=== PATIENT | male | born 1940 | race Caucasian/White ===

== ENCOUNTER 2016-08-28 08:31 | Day surgery (SDC) | payer MEDICARE, BC ==
[2016-08-24 18:28] VITALS: BMI 35.4
[~2016-08-28 08:31] MED LIST: LACTATED RINGERS 1,000 ML IV SCH
[2016-08-28] MEDS: CYCLOPENTOLATE 1% OPHTH SOLN 2 ML BTL OP ONE ×3 (09:50→10:08)
[2016-08-28] MEDS: FLURBIPROFEN 0.03% OPHTH DROPS 2.5 ML BTL OP ONE ×3 (09:53→10:11)
[2016-08-28] MEDS: PHENYLEPHRINE 10% OPHTH DROPS 5 ML BTL OP ONE ×2 (09:56→10:05)
[2016-08-28 10:07] VITALS: RESP 18; TEMP 98.7
[2016-08-28 10:17] LABS: Glucose,Whole Blood 135 mg/dL (75-99)
[2016-08-28] MEDS ORDERED: PROPOFOL 10 MG/ML 20 ML VIAL IV ONE (10:33)
[2016-08-28] MEDS ORDERED: LACTATED RINGERS 1,000 ML IV ONE (10:37)
[2016-08-28] MEDS: TIMOLOL 0.5% OPHTH SOLN (PF) 0.2 ML DROPERETTE OP ONE ×2 (10:46→10:49)
[2016-08-28] MEDS: GENTAMICIN/PREDNISOL AC OPHTH OINT 3.5GM OPHTHALMIC ONE ×2 (10:46→10:49)
[2016-08-28] MEDS ORDERED: HYALURONATE SODIUM INTRAOCULAR 1 EACH SYRINGE (10MG/ML) INTRAOCULA ONE ×2 (10:47→10:49)
[2016-08-28] MEDS ORDERED: BALANCED SALT IRRIG SOLN COMB2 15 ML IRRIG.SOLN IRRIGATION ONE ×2 (10:47→10:49)
[2016-08-28] MEDS ORDERED: EPINEPHrine (PF) 0.5 ML in BALANCED SALT IRRIG SOLN COMB2 500 ML IRRIGATION ONE (10:50)
--- NOTE | 2016-08-28 11:03 | P.OP ---
Date of Procedure: 08/28/16 Preoperative Diagnosis: Postoperative Diagnosis: Procedure(s) Performed: PREOPERATIVE DIAGNOSIS: Cataract, right eye. POSTOPERATIVE DIAGNOSIS: Cataract, right eye. OPERATION: Phacoemulsification cataract, right eye. DESCRIPTION OF PROCEDURE: The patient was taken to the preoperative holding area. Intravenous Propofol was given so as to bring about adequate sedation. The following mixture was given for local anesthesia: 5 mL of 2% lidocaine, 5 mL of 0.75% Marcaine, and 1 mL of Wydase. Approximately 4 mL was injected in the retrobulbar space of the surgical eye. Additional 1 mL was then directed to the temporal area of the surgical eye. This was performed to allow adequate neurological block of the facial muscles. The patient was revived and then taken into the operative room. The patient was prepped and draped in the usual sterile manner for the operative eye. A lid speculum was put into position. The conjunctiva was resected back from the limbus in the 12 o'clock position. Bleeding was controlled with electrocautery. A #69 blade was then used and a half-thickness scleral incision approximately 1-mm posterior to the limbus was made on bare sclera. This was shelved in the clear cornea using a crescent knife. Next a 15-degree blade was used to make a stab incision at the 3 o' clock position at the corneolimbal interface. Keratome blade was then used and the superior wound was extended into the anterior chamber. Viscoelastic was injected into the anterior chamber and to maintain its form. Next, a cystotome was used and a continuous anterior capsulotomy was made without difficulty. Hydrodissection using a blunt cannula and BSS was performed. Phaco probe was then employed and a groove extending from 12 to 6 o'clock in the lens was created. A Marvin wand was used through the stab incision so as to perform a divide and conquer technique. Next an irrigation aspiration probe was utilized and any residual cortex was removed from the eye. Again, viscoelastic was injected into the anterior chamber. An Jovanny posterior chamber lens implant was placed in the cartridge and injected into the anterior chamber without difficulty. The [employer] hook was utilized to spin the lens into position and this was again performed without any difficulty. The irrigation and aspiration probe was again employed and any residual viscoelastic was removed from the eye. Then BSS was injected into the limbal stab incision and the anterior chamber re-inflated. The conjunctiva was reapproximated using electrocautery. One drop of 0.25% Timoptic was placed over the corneal along with TobraDex ophthalmic ointment. Two sterile patches and a Bruno eye shield were taped into position. The patient was transported to the recovery room in stable condition. Implants: Pathology: none sent Condition: stable Disposition: same day Indications for Procedure: Operative Findings: Description of Procedure:
[2016-08-28 11:24] VITALS: BP 157/84; PULSE 80
[2016-08-28] MEDS ORDERED: BUPIVACAINE (PF) 0.75% 5 ML, LIDOCAINE 4% (PF) 5 ML, HYALURONIDASE, HUMAN RECOMB 150 UNIT MISCELLANE ONE ×3 (23:00)
== END 2016-08-28 11:39 | disposition home or self-care (01) ==
LOC: OR 08:31
PROVIDERS: ATTEND Ophthalmology
DX: H25.11 Age-related nuclear cataract, right eye (principal); G70.00 Myasthenia gravis without (acute) exacerbation; E11.9 Type 2 diabetes mellitus without complications; I10 Essential (primary) hypertension; E78.5 Hyperlipidemia, unspecified; I48.91 Unspecified atrial fibrillation; Z95.5 Presence of coronary angioplasty implant and graft; N42.9 Disorder of prostate, unspecified; Z79.01 Long term (current) use of anticoagulants; Z79.84 Long term (current) use of oral hypoglycemic drugs; Z79.82 Long term (current) use of aspirin; Z79.899 Other long term (current) drug therapy; Z88.7 Allergy status to serum and vaccine; Z86.74 Personal history of sudden cardiac arrest; Z86.73 Personal history of transient ischemic attack (TIA), and cerebral infarction without residual deficits; Z87.891 Personal history of nicotine dependence
CPT/HCPCS: 66982; V2632; J2001; J3470; J0171; J2704

== ENCOUNTER 2016-11-13 09:24 | Day surgery (SDC) | payer MEDICARE, BC ==
[2016-11-06 15:09] VITALS: BMI 35.4
[2016-11-13] MEDS: PHENYLEPHRINE 10% OPHTH DROPS 5 ML BTL OP ONE ×5 (10:17→10:43)
[2016-11-13] MEDS: CYCLOPENTOLATE 1% OPHTH SOLN 2 ML BTL OP ONE ×5 (10:20→10:45)
[2016-11-13] MEDS: FLURBIPROFEN 0.03% OPHTH DROPS 2.5 ML BTL OP ONE ×5 (10:23→10:47)
[2016-11-13 10:25] VITALS: RESP 20; TEMP 98
[2016-11-13 10:46] LABS: Glucose,Whole Blood 158 mg/dL (75-99)
[2016-11-13] MEDS ORDERED: PROPOFOL 10 MG/ML 20 ML VIAL IV ONE (10:50)
[2016-11-13] MEDS ORDERED: fentaNYL (PF) 50 MCG/ML 2 ML AMP ONE (10:50)
[2016-11-13] MEDS ORDERED: MIDAZOLAM 2 MG/2 ML VIAL ONE (10:50)
[2016-11-13] MEDS ORDERED: EPINEPHrine (PF) 0.5 ML in BALANCED SALT IRRIG SOLN COMB2 500 ML IRRIGATION ONE (10:51)
[2016-11-13] MEDS ORDERED: BALANCED SALT IRRIG SOLN COMB2 15 ML IRRIG.SOLN INTRAOCULA ONE (10:54)
[2016-11-13] MEDS ORDERED: HYALURONATE SODIUM INTRAOCULAR 1 EACH SYRINGE (10MG/ML) INTRAOCULA ONE (10:54)
[2016-11-13] MEDS ORDERED: TIMOLOL 0.5% OPHTH SOLN (PF) 0.2 ML DROPERETTE LEFT EYE ONE (10:55)
[2016-11-13 11:11] LABS: INR 2.6 (<1.2); Prothrombin Time 24.8 sec (9.0-12.0)
--- NOTE | 2016-11-13 11:16 | P.OP ---
Date of Procedure: 11/13/16 Preoperative Diagnosis: Postoperative Diagnosis: Procedure(s) Performed: PREOPERATIVE DIAGNOSIS: Cataract, left eye. Miosis, left eye POSTOPERATIVE DIAGNOSIS: Cataract, left eye. OPERATION: Phacoemulsification cataract, left eye. DESCRIPTION OF PROCEDURE: The patient was taken to the preoperative holding area. Intravenous Propofol was given so as to bring about adequate sedation. The following mixture was given for local anesthesia: 5 mL of 2% lidocaine, 5 mL of 0.75% Marcaine, and 1 mL of Wydase. Approximately 4 mL was injected in the retrobulbar space of the surgical eye. Additional 1 mL was then directed to the temporal area of the surgical eye. This was performed to allow adequate neurological block of the facial muscles. The patient was revived and then taken into the operative room. The patient was prepped and draped in the usual sterile manner for the operative eye. A lid speculum was put into position. The conjunctiva was resected back from the limbus in the 12 o'clock position. Bleeding was controlled with electrocautery. A #69 blade was then used and a half-thickness scleral incision approximately 1-mm posterior to the limbus was made on bare sclera. This was shelved in the clear cornea using a crescent knife. Next a 15-degree blade was used to make a stab incision at the 3 o' clock position at the corneolimbal interface. Keratome blade was then used and the superior wound was extended into the anterior chamber. Viscoelastic was injected into the anterior chamber and to maintain its form. A [place]gin ring was injected into the chamber and the pupil was stretched into position. Next, a cystotome was used and a continuous anterior capsulotomy was made without difficulty. Hydrodissection using a blunt cannula and BSS was performed. Phaco probe was then employed and a groove extending from 12 to 6 o' clock in the lens was created. A Marvin wand was used through the stab incision so as to perform a divide and conquer technique. Next an irrigation aspiration probe was utilized and any residual cortex was removed from the eye. Again, viscoelastic was injected into the anterior chamber. An Jovanny posterior chamber lens implant was placed in the cartridge and injected into the anterior chamber without difficulty. The [employer] hook was utilized to spin the lens into position and this was again performed without any difficulty. The Maluygin ring was remioved from [facility] eye. The irrigation and aspiration probe was again employed and any residual viscoelastic was removed from the eye. Then BSS was injected into the limbal stab incision and the anterior chamber re-inflated. The conjunctiva was reapproximated using electrocautery. One drop of 0.25% Timoptic was placed over the corneal along with TobraDex ophthalmic ointment. Two sterile patches and a Bruno eye shield were taped into position. The patient was transported to the recovery room in stable condition. Implants: Pathology: none sent Condition: stable Disposition: same day Indications for Procedure: Operative Findings: Description of Procedure:
[2016-11-13 11:32] VITALS: BP 161/77
[2016-11-13 11:44] VITALS: PULSE 63
[2016-11-13] MEDS ORDERED: GENTAMICIN/PREDNISOL AC OPHTH OINT 3.5GM OPHTHALMIC ONE (23:00)
[2016-11-13] MEDS ORDERED: TIMOLOL 0.5% OPHTH SOLN (PF) 0.2 ML DROPERETTE OP ONE (23:00)
[2016-11-13] MEDS ORDERED: BUPIVACAINE (PF) 0.75% 5 ML, LIDOCAINE 4% (PF) 5 ML, HYALURONIDASE, HUMAN RECOMB 150 UNIT MISCELLANE ONE ×3 (23:00)
== END 2016-11-13 12:01 | disposition home or self-care (01) ==
LOC: OR 09:24
PROVIDERS: ATTEND Ophthalmology
DX: H26.9 Unspecified cataract (principal); H57.03 Miosis; E11.9 Type 2 diabetes mellitus without complications; Z79.84 Long term (current) use of oral hypoglycemic drugs; E78.5 Hyperlipidemia, unspecified; I25.10 Atherosclerotic heart disease of native coronary artery without angina pectoris; I10 Essential (primary) hypertension; Z87.891 Personal history of nicotine dependence; I48.91 Unspecified atrial fibrillation; Z86.73 Personal history of transient ischemic attack (TIA), and cerebral infarction without residual deficits; Z95.5 Presence of coronary angioplasty implant and graft; G70.00 Myasthenia gravis without (acute) exacerbation; Z79.01 Long term (current) use of anticoagulants; Z79.82 Long term (current) use of aspirin; Z79.891 Long term (current) use of opiate analgesic; Z79.899 Other long term (current) drug therapy; Z88.7 Allergy status to serum and vaccine
CPT/HCPCS: 66984; 85610; V2632; J2001; J2250; J3470; J0171; J3010; J2704

== ENCOUNTER 2018-08-16 20:46 | Inpatient (IN) | payer BC, MEDICARE ==
[2018-08-16] MEDS ORDERED: MORPHINE SULFATE 2 MG/ML SYRINGE IVP STA (21:23)
[2018-08-16] MEDS ORDERED: SODIUM CHLORIDE 0.9% 1,000 ML IV STA (21:23)
--- NOTE | 2018-08-16 21:56 | ED ---
Abdominal Pain HPI - General Source: patient, RN notes reviewed, old records reviewed Mode of arrival: ambulatory Limitations: no limitations <Geovanna Amaya - Last Filed: 08/17/18 00:26> <Adelaida Vidal - Last Filed: 08/20/18 04:29> - General Chief Complaint: Abdominal Pain Stated Complaint: Hematuria Time Seen by Provider: 08/16/18 21:06 - History of Present Illness Initial Comments: 77-year-old male presents today for evaluation for abdominal pain, and hematuria. Patient reports that after he urinated he noted some blood within his urine today and had some pain over his Right flank area intermittently. Patient reports pain is 2/10. Patient states he has no chest pain shortness breath nausea or vomiting. Patient reports that he is on Coumadin. (Geovanna Amaya) - Related Data Home Medications Medication Instructions Recorded Confirmed Atorvastatin [Lipitor] 80 mg PO QAM 12/21/15 08/16/18 amLODIPine [Norvasc] 10 mg PO QAM 12/21/15 08/16/18 Warfarin Sodium [Coumadin] 5 mg PO DAILY 02/01/16 08/16/18 Primidone [Mysoline] 25 mg PO AC-SUPPER 08/16/18 08/16/18 Primidone [Mysoline] 50 mg PO DAILY@1100 08/16/18 08/16/18 Primidone [Mysoline] 250 mg PO HS 08/16/18 08/16/18 Pyridostigmine [place] [Mestinon] 60 mg PO Q4H 08/16/18 08/16/18 metFORMIN HCL ER [Glucophage Xr] 500 mg PO BID 08/16/18 08/16/18 Loperamide [Imodium] 2 mg PO QID PRN 08/17/18 08/17/18 Previous Rx's Medication Instructions Recorded Lisinopril [Zestril] 10 mg PO DAILY #30 tab 12/25/15 Metoprolol Tartrate [Lopressor] 50 mg PO BID #60 tab 12/25/15 hydrALAZINE HCL [Apresoline] 25 mg PO BID #60 tab 08/18/18 Allergies Allergy/AdvReac Type Severity Reaction Status Date / Time mayonnaise AdvReac Vomiting Verified 08/16/18 21:36 SOUR CREAM AdvReac Vomiting Uncoded 08/16/18 21:36 Review of Systems ROS Other: All systems not noted in ROS Statement are negative. <Geovanna Amaya - Last Filed: 08/17/18 00:26> ROS Other: All systems not noted in ROS Statement are negative. <Adelaida Vidal - Last Filed: 08/20/18 04:29> ROS Statement: Those systems with pertinent positive or pertinent negative responses have been documented in the HPI. Past Medical History Past Medical History: Atrial Fibrillation, CVA/TIA, Diabetes Mellitus, Eye Disorder, Hearing Disorder / Deafness, Hyperlipidemia, Hypertension, Memory Impairment, Musculoskeletal Disorder, Neurologic Disorder, Prostate Disorder Additional Past Medical History / Comment(s): CARDIAC ARREST IN 2008, STATES HE DID NOT HAVE OR, WAS DUE TO A DIABETIC MED HE WAS TAKING AT THE TIME. MYASTHENIA GRAVIS. tremors, HX Iron deficiency Anemia. New Onset A-Fib 12/2015. Hiatal Hernia. POSS TIA YEARS AGO. BPH. Last Myocardial Infarction Date:: 2008 History of Any Multi-Drug Resistant Organisms: None Reported Past Surgical History: Appendectomy, Cholecystectomy, Heart Catheterization With Stent Additional Past Surgical History / Comment(s): HEMORROIDECTOMY. EGD/Colonoscopy. STENTS X2. RIA, CARDIOVERSION, cataract surg. August 2016 Past Anesthesia/Blood Transfusion Reactions: No Reported Reaction Date of Last Stent Placement:: 2008 Past Psychological History: No Psychological Hx Reported Smoking Status: Former smoker - Past Family History Father Family Medical History: Cancer Additional Family Medical History / Comment(s): bone cancer. Mother Additional Family Medical History / Comment(s): when pt was born. Daughter(s) Family Medical History: Cancer <Geovanna Amaya - Last Filed: 08/17/18 00:26> General Exam Limitations: no limitations General appearance: alert, in no apparent distress Head exam: Present: atraumatic, normocephalic, normal inspection Eye exam: Present: normal appearance, PERRL, EOMI. Absent: scleral icterus, conjunctival injection, periorbital swelling ENT exam: Present: normal exam, mucous membranes moist Neck exam: Present: normal inspection. Absent: tenderness, meningismus, lymphadenopathy Respiratory exam: Present: normal lung sounds bilaterally. Absent: respiratory distress, wheezes, rales, rhonchi, stridor Cardiovascular Exam: Present: regular rate, normal rhythm, normal heart sounds. Absent: systolic murmur, diastolic murmur, rubs, gallop, clicks GI/Abdominal exam: Present: soft, normal bowel sounds. Absent: distended, tenderness, guarding, rebound, rigid Neurological exam: Present: alert, oriented X3, CN II-XII intact Psychiatric exam: Present: normal affect, normal mood Skin exam: Present: warm <Geovanna Amaya - Last Filed: 08/17/18 00:26> - General Exam Comments Initial Comments: Pleasant 77-year-old male. Alert and oriented. No distress. (Geovanna Amaya) Course Vital Signs 08/16/18 08/16/18 08/17/18 20:54 22:43 00:58 Temperature 97.9 F 98.6 F 98.3 F Pulse Rate 85 74 92 Respiratory 20 16 16 Rate Blood Pressure 172/80 151/83 167/82 O2 Sat by Pulse 95 95 95 Oximetry Medical Decision Making - Lab Data Result diagrams: 08/16/18 21:41 08/16/18 21:41 - Radiology Data Radiology results: report reviewed <Geovanna Amaya - Last Filed: 08/17/18 00:26> - Lab Data Result diagrams: 08/17/18 06:34 08/18/18 07:29 <Adelaida Vidal - Last Filed: 08/20/18 04:29> - Medical Decision Making 37-year-old male persist return today for evaluation for intermittent right flank pain, and hematuria after urinating today. Patient has evidence of a right-sided retained renal stone. Discussed the patient's pain is likely related to passing a kidney stone. KUB was reviewed and shows no acute process but evidence of retained right kidney stone. Patient labwork was reviewed. i te blood cell count hemoglobin are within normal limits. Patient's kidney function was all. As noted the patient's pancreatic enzymes are elevated with lipase of 1300. Patient has had his gallbladder removed. He denies alcohol use. Patient isn't had a history of pancreatitis before. Computed tomography scan of the abdomen and pelvis was completed with contrast. This shows a colonic diverticulosis, but continued to retained stone, no evidence of obstructing stone or hydronephrosis. No acute findings associated with the pancreas. Patient was given 2 L bolus and started on maintenance fluids. I discussed admitting the Patient for acute pancreatitis and hematuria rated at 2 recently passed kidney stone. He is resting comfortably bed at this time. I discussed case with Dr. Vidal who discussed the case with the admitting physician. (Geovanna Amaya) I was available for consultation in the emergency department. The history and physical exam were done by the midlevel provider. I was consulted for this patient's care. I reviewed the case with the midlevel provider and based on their presentation of the patient, I agree with the assessment, medical decision making and plan of care as documented. Chart was dictated using [employer] dictation software. Attempts were made to correct any dictation errors however some typographical errors may persist. (Adelaida Vidal) - Lab Data Lab Results 08/16/18 08/16/18 08/16/18 Range/Units 21:41 21:41 21:49 WBC 7.4 (3.8-10.6) k/uL RBC 4.33 (4.30-5.90) m/uL Hgb 12.8 L (13.0-17.5) gm/dL Hct 38.5 L (39.0-53.0) % MCV 89.1 (80.0-100.0) fL MCH 29.6 (25.0-35.0) pg MCHC 33.3 (31.0-37.0) g/dL RDW 14.2 (11.5-15.5) % Plt Count 325 (150-450) k/uL Neutrophils % 74 % Lymphocytes % 13 % Monocytes % 6 % Eosinophils % 3 % Basophils % 0 % Neutrophils # 5.5 (1.3-7.7) k/uL Lymphocytes # 1.0 (1.0-4.8) k/uL Monocytes # 0.4 (0-1.0) k/uL Eosinophils # 0.2 (0-0.7) k/uL Basophils # 0.0 (0-0.2) k/uL Sodium 142 (137-145) mmol/L Potassium 4.0 (3.5-5.1) mmol/L Chloride 110 H (98-107) mmol/L Carbon Dioxide 24 (22-30) mmol/L Anion Gap 8 mmol/L BUN 23 H (9-20) mg/dL Creatinine 1.05 (0.66-1.25) mg/dL Est GFR (CKD-EPI)AfAm 80 (>60 ml/min/1.73 sqM) Est GFR (CKD-EPI)NonAf 69 (>60 ml/min/1.73 sqM) Glucose 157 H (74-99) mg/dL Calcium 9.2 (8.4-10.2) mg/dL Total Bilirubin 0.9 (0.2-1.3) mg/dL AST 23 (17-59) U/L ALT 28 (21-72) U/L Alkaline Phosphatase 185 H (38-126) U/L Total Protein 6.9 (6.3-8.2) g/dL Albumin 4.1 (3.5-5.0) g/dL Amylase 262 H (30-110) U/L Lipase 1780 H (23-300) U/L Urine Color Dark Red Urine Appearance Bloody (Clear) Urine RBC >182 H (0-5) /hpf Urine WBC 123 H (0-5) /hpf Urine Mucus Moderate H (None) /hpf - Radiology Data Cardiomegaly and CT. 14 mm nonobstructive stone in the right kidney. Colonic diverticulosis. Mild hiatal hernia. (Geovanna Amaya) Disposition Is patient prescribed a controlled substance at d/c from ED?: No Time of Disposition: 00:30 <Geovanna Amaya - Last Filed: 08/17/18 00:26> <Adelaida Vidal - Last Filed: 08/20/18 04:29> Clinical Impression: Pancreatitis, Hematuria, Myasthenia gravis, Hypertension Disposition: ADMITTED IP TO THIS HOSP Condition: Stable
[2018-08-16 21:57] LABS: Basophils % (A) 0 %; Eosinophils # (A) 0.2 k/uL (0-0.7); Eosinophils % (A) 3 %; HCT 38.5 % (39.0-53.0); HGB 12.8 gm/dL (13.0-17.5); Lymphocytes % (A) 13 %; MCH 29.6 pg (25.0-35.0); MCHC 33.3 g/dL (31.0-37.0); MCV 89.1 fL (80.0-100.0); Mean Platelet Volume 7.4; Monocytes # (A) 0.4 k/uL (0-1.0); Monocytes % (A) 6 %; Neutrophils # (A) 5.5 k/uL (1.3-7.7); Neutrophils % (A) 74 %; Platelet Count 325 k/uL (150-450); RBC 4.33 m/uL (4.30-5.90); RDW 14.2 % (11.5-15.5); WBC 7.4 k/uL (3.8-10.6)
[2018-08-16 22:09] LABS: Mucus,Urine Moderate /hpf; RBC,Urine >182 /hpf (0-5); WBC,Urine 123 /hpf (0-5)
[2018-08-16 22:10] LABS: Appearance,Urine Bloody (Clear); Color,Urine Dark Red
[2018-08-16 22:17] LABS: Albumin 4.1 g/dL (3.5-5.0); Calcium 9.2 mg/dL (8.4-10.2); Total Bilirubin 0.9 mg/dL (0.2-1.3); Total Protein 6.9 g/dL (6.3-8.2)
--- NOTE | 2018-08-16 22:20 | XR ---
EXAM: XR Abdomen, 1 View CLINICAL HISTORY: ITS.REASON XR Reason: abdominal pain TECHNIQUE: Frontal supine view of the abdomen/pelvis. COMPARISON: No relevant prior studies available. FINDINGS: Gastrointestinal tract: Unremarkable. No dilation. Bones/joints: No acute fracture. No dislocation. Other: 1.8 cm calcification in the right upper quadrant. IMPRESSION: No bowel obstruction. 1.8 cm calcification in the right upper quadrant, possibly a kidney stone.
--- NOTE | 2018-08-16 23:36 | CT ---
EXAM: CT Abdomen and Pelvis With Intravenous Contrast CLINICAL HISTORY: ITS.REASON CT Reason: pain, TECHNIQUE: Axial computed tomography images of the abdomen and pelvis with intravenous contrast. CTDI is 40 mGy and DLP is 1653 mGy-cm. This CT exam was performed using one or more of the following dose reduction techniques: automated exposure control, adjustment of the mA and/or kV according to patient size, and/or use of iterative reconstruction technique. COMPARISON: No relevant prior studies available. FINDINGS: Lung bases: Cardiomegaly. ABDOMEN: Liver: Unremarkable. Gallbladder and bile ducts: Removed. Pancreas: Unremarkable. Spleen: Unremarkable. Adrenals: Unremarkable. Kidneys and ureters: No hydronephrosis. 14 mm nonobstructive stone in the right kidney. Atrophic kidneys bilaterally. Stomach and bowel: No bowel obstruction or bowel wall thickening. Mild hiatal hernia. Colonic diverticulosis. PELVIS: Appendix: No evidence of appendicitis. Bladder: Unremarkable. Reproductive: Unremarkable. ABDOMEN and PELVIS: Intraperitoneal space: Unremarkable. Bones/joints: No acute fractures. Soft tissues: Fat containing right inguinal hernia. Vasculature: No abdominal aortic aneurysm. Lymph nodes: No enlarged lymph nodes. IMPRESSION: 1. Cardiomegaly. 2. 14 mm nonobstructive stone in the right kidney. 3. Colonic diverticulosis. Mild hiatal hernia.
[2018-08-17] MEDS ORDERED: MORPHINE SULFATE 4 MG/ML SYRINGE IV PRN (00:30)
[2018-08-17] MEDS ORDERED: ACETAMINOPHEN TAB 325 MG TAB PO PRN (00:30)
[2018-08-17] MEDS ORDERED: ONDANSETRON 4 MG/2 ML VIAL IVP PRN (00:30)
[2018-08-17] MEDS ORDERED: IBUPROFEN 400 MG TAB PO PRN (00:30)
[2018-08-17] MEDS ORDERED: NALOXONE 0.4 MG/ML 1 ML VIAL IV PRN (00:30)
[2018-08-17] MEDS ORDERED: SODIUM CHLORIDE 0.9% 1,000 ML IV SCH (00:30)
[2018-08-17 01:44] VITALS: BMI 36.7
[2018-08-17] MEDS: PYRIDOSTIGMINE 60 MG TAB PO SCH ×6 (02:29→21:46)
[2018-08-17] MEDS ORDERED: KETOROLAC 30 MG/ML 1 ML VIAL IVP PRN (06:00)
[2018-08-17 07:08] LABS: Glucose,Whole Blood 141 mg/dL (75-99)
[2018-08-17 07:14] LABS: Basophils % (A) 0 %; Eosinophils # (A) 0.2 k/uL (0-0.7); Eosinophils % (A) 2 %; HCT 39.7 % (39.0-53.0); HGB 12.8 gm/dL (13.0-17.5); Lymphocytes % (A) 12 %; MCH 28.9 pg (25.0-35.0); MCHC 32.2 g/dL (31.0-37.0); MCV 89.8 fL (80.0-100.0); Mean Platelet Volume 7.2; Monocytes # (A) 0.6 k/uL (0-1.0); Monocytes % (A) 7 %; Neutrophils # (A) 6.3 k/uL (1.3-7.7); Neutrophils % (A) 75 %; Platelet Count 303 k/uL (150-450); RBC 4.42 m/uL (4.30-5.90); RDW 14.2 % (11.5-15.5); WBC 8.4 k/uL (3.8-10.6)
[2018-08-17 07:29] LABS: Amylase 117 U/L (30-110); Anion Gap 7 mmol/L; Blood Urea Nitrogen 17 mg/dL (9-20); Carbon Dioxide 25 mmol/L (22-30); Chloride 109 mmol/L (98-107); Glucose 133 mg/dL (74-99); Lipase 392 U/L (23-300); Potassium 3.8 mmol/L (3.5-5.1); Sodium 141 mmol/L (137-145)
[2018-08-17 07:43] LABS: INR 2.2 (<1.2); Prothrombin Time 21.6 sec (9.0-12.0)
[2018-08-17] MEDS: METOPROLOL TARTRATE 50 MG TAB PO SCH ×2 (09:21→21:46)
[2018-08-17] MEDS: metFORMIN 500 MG TAB PO SCH ×2 (09:21→21:46)
[2018-08-17] MEDS: amLODIPine 10 MG TAB PO SCH (09:21)
[2018-08-17] MEDS: LISINOPRIL 10 MG TAB PO SCH (09:21)
[2018-08-17] MEDS: PANTOPRAZOLE 40 MG/10 ML VIAL IV SCH (09:21)
[2018-08-17] MEDS: ATORVASTATIN 80 MG TAB PO SCH (09:21)
[2018-08-17] MEDS: PRIMIDONE 50 MG TAB PO SCH (11:33)
[2018-08-17 11:41] LABS: Glucose,Whole Blood 128 mg/dL (75-99)
--- NOTE | 2018-08-17 13:03 | P.HPIM ---
History of Present Illness This is a pleasant 77 years old male with past medical history of atrial fibrillation, diabetes mellitus, hearing disorder, hypertension, hyperlipidemia, myasthenia gravis, tremor who presents because of abdominal pain And hematurian. Patient yesterday had 2 episodes of urinating bloody urine associated with right sided flank pain, severe radiating to the front and down. Associated with some nausea but no vomiting On admission vitals looks stable. CBC and BMP were unremarkable. Sugar controlled. INR is 2.2 while on Coumadin. Lipase is elevated at 1718, amylase is elevated. Liver enzymes within normal limits. Urinalysis is suspicious for infections with elevated WBC at 123 and RBCs More than 182. CT of the abdome n/pelvis: Cardiomegaly, 14 mm nonobstructing stone and right kidney and diverticulosis. Pancreas was unremarkable Creatinine within normal limits. Lipase is coming down from 1780 down to 392. Patient denies epigastric pain. Review of Systems CONSTITUTIONAL: No fever, no malaise, no fatigue. HEENT: No recent visual problems or hearing problems. Denied any sore throat. CARDIOVASCULAR: No orthopnea, PND, no palpitations, no syncope. PULMONARY: No shortness of breath, no cough, no hemoptysis. GASTROINTESTINAL: No diarrhea, no nausea, no vomiting, no abdominal pain. Normoactive bowel sounds. NEUROLOGICAL: No headaches, no weakness, no numbness. HEMATOLOGICAL: Denies any bleeding or petechiae. GENITOURINARY: Denies any burning micturition, frequency, or urgency. MUSCULOSKELETAL/RHEUMATOLOGICAL: Denies any joint pain, swelling, or any muscle pain. ENDOCRINE: Denies any polyuria or polydipsia. Past Medical History Past Medical History: Atrial Fibrillation, CVA/TIA, Diabetes Mellitus, Eye Disorder, Hearing Disorder / Deafness, Hyperlipidemia, Hypertension, Memory Impairment, Musculoskeletal Disorder, Neurologic Disorder, Prostate Disorder Additional Past Medical History / Comment(s): CARDIAC ARREST IN 2008, MYASTHENIA GRAVIS. tremors, HX Iron deficiency Anemia. New Onset A-Fib 12/2015. Hiatal Hernia. POSS TIA YEARS AGO. BPH. Last Myocardial Infarction Date:: 2008 History of Any Multi-Drug Resistant Organisms: None Reported Past Surgical History: Appendectomy, Cholecystectomy, Heart Catheterization With Stent Additional Past Surgical History / Comment(s): HEMORROIDECTOMY. EGD/Colonoscopy. STENTS X2. RIA, CARDIOVERSION, cataract surg. August 2016 Past Anesthesia/Blood Transfusion Reactions: No Reported Reaction Date of Last Stent Placement:: 2008 Past Psychological History: No Psychological Hx Reported Smoking Status: Former smoker Past Alcohol Use History: Rare Additional Past Alcohol Use History / Comment(s): QUIT 20 YRS AGO (1993), SMOKED FOR 20 YRS, 1PPD. Past Drug Use History: None Reported - Past Family History Father Family Medical History: Cancer Additional Family Medical History / Comment(s): bone cancer. Mother Additional Family Medical History / Comment(s): when pt was born. Daughter(s) Family Medical History: Cancer Medications and Allergies Home Medications Medication Instructions Recorded Confirmed Type Atorvastatin [Lipitor] 80 mg PO QAM 12/21/15 08/16/18 History amLODIPine [Norvasc] 10 mg PO QAM 12/21/15 08/16/18 History Lisinopril [Zestril] 10 mg PO DAILY #30 tab 12/25/15 08/16/18 Rx Metoprolol Tartrate [Lopressor] 50 mg PO BID #60 tab 12/25/15 08/16/18 Rx Warfarin Sodium [Coumadin] 5 mg PO DAILY 02/01/16 08/16/18 History Primidone [Mysoline] 25 mg PO AC-SUPPER 08/16/18 08/16/18 History Primidone [Mysoline] 50 mg PO DAILY@1100 08/16/18 08/16/18 History Primidone [Mysoline] 250 mg PO HS 08/16/18 08/16/18 History Pyridostigmine [place] [Mestinon] 60 mg PO Q4H 08/16/18 08/16/18 History metFORMIN HCL ER [Glucophage Xr] 500 mg PO BID 08/16/18 08/16/18 History Allergies Allergy/AdvReac Type Severity Reaction Status Date / Time mayonnaise AdvReac Vomiting Verified 08/16/18 21:36 SOUR CREAM AdvReac Vomiting Uncoded 08/16/18 21:36 Physical Exam Vitals: Vital Signs Temp Pulse Pulse Resp BP BP Pulse Ox 08/17/18 05:25 98.6 F 78 18 156/72 97 08/17/18 01:41 98.8 F 117 H 18 176/82 100 08/17/18 00:58 98.3 F 92 16 167/82 95 08/16/18 22:43 98.6 F 74 16 151/83 95 08/16/18 20:54 97.9 F 85 20 172/80 95 Intake and Output 08/16/18 08/17/18 08/17/18 22:59 06:59 14:59 Intake Total 295 Balance 295 Intake: Oral 295 Other: Voiding Method Toilet Toilet # Voids 1 Weight 104.326 kg 109.5 kg GENERAL: The patient is alert and oriented x3, not in any acute distress. Well developed, well nourished. HEENT: Pupils are round and equally reacting to light. EOMI. No scleral icterus. No conjunctival pallor. Normocephalic, atraumatic. No pharyngeal erythema. No thyromegaly. CARDIOVASCULAR: S1 and S2 present. No murmurs, rubs, or gallops. PULMONARY: Chest is clear to auscultation, no wheezing or crackles. ABDOMEN: Soft, nontender, nondistended, normoactive bowel sounds. No palpable organomegaly. MUSCULOSKELETAL: No joint swelling or deformity. EXTREMITIES: No cyanosis, clubbing, or pedal edema. NEUROLOGICAL: Gross neurological examination did not reveal any focal deficits. SKIN: No rashes. Results CBC & Chem 7: 08/17/18 06:34 08/17/18 06:34 Labs: Abnormal Lab Results - Last 24 Hours (Table) 08/16/18 08/16/18 08/16/18 Range/Units 21:41 21:41 21:49 Hgb 12.8 L (13.0-17.5) gm/dL Hct 38.5 L (39.0-53.0) % PT (9.0-12.0) sec INR (<1.2) Chloride 110 H (98-107) mmol/L BUN 23 H (9-20) mg/dL Glucose 157 H (74-99) mg/dL POC Glucose (mg/dL) (75-99) mg/dL Alkaline Phosphatase 185 H (38-126) U/L Amylase 262 H (30-110) U/L Lipase 1780 H (23-300) U/L Urine RBC >182 H (0-5) /hpf Urine WBC 123 H (0-5) /hpf Urine Mucus Moderate H (None) /hpf 08/17/18 08/17/18 08/17/18 Range/Units 06:34 06:34 06:34 Hgb 12.8 L (13.0-17.5) gm/dL Hct (39.0-53.0) % PT 21.6 H (9.0-12.0) sec INR 2.2 H (<1.2) Chloride 109 H (98-107) mmol/L BUN (9-20) mg/dL Glucose 133 H (74-99) mg/dL POC Glucose (mg/dL) (75-99) mg/dL Alkaline Phosphatase (38-126) U/L Amylase 117 H (30-110) U/L Lipase 392 H (23-300) U/L Urine RBC (0-5) /hpf Urine WBC (0-5) /hpf Urine Mucus (None) /hpf 08/17/18 08/17/18 Range/Units 07:06 11:39 Hgb (13.0-17.5) gm/dL Hct (39.0-53.0) % PT (9.0-12.0) sec INR (<1.2) Chloride (98-107) mmol/L BUN (9-20) mg/dL Glucose (74-99) mg/dL POC Glucose (mg/dL) 141 H 128 H (75-99) mg/dL Alkaline Phosphatase (38-126) U/L Amylase (30-110) U/L Lipase (23-300) U/L Urine RBC (0-5) /hpf Urine WBC (0-5) /hpf Urine Mucus (None) /hpf Thrombosis Risk Factor Assmnt - Choose All That Apply Each Factor Represents 1 point: Obesity (BMI >25) Each Risk Factor Represents 2 Points: Age 61-74 years Thrombosis Risk Factor Assessment Total Risk Factor Score: 3 Thrombosis Risk Factor Assessment Level: Moderate Risk Assessment and Plan Assessment: Right Renal colic Right nonobstructing kidney stones with hematuria Elevated lipase. Low suspicion for Acute Pancreatitis. History of atrial fibrillation on Coumadin Diabetes mellitus Essential hypertension Hyperlipidemia History of Myasthenia gravis Tremor Hearing difficulty Plan: This is a pleasant 77 years old male who presents with hematuria and right kidney stone. Continue with IV fluids. Pain medicine. Repeat urine analysis. Call urology consult Labs and medication were reviewed.. Continue same treatment. Continue with symptomatic treatment. Resume home medication. Monitor lytes and vitals. DVT and GI prophylaxis. Further recommendations of the clinical course of the patient DVT prophylaxis: On Coumadin GI Prophylaxis: Pepcid
[2018-08-17] MEDS ORDERED: LOPERAMIDE 2 MG CAP PO STA (14:15)
[2018-08-17] MEDS ORDERED: LOPERAMIDE 2 MG CAP PO PRN (17:03)
[2018-08-17 17:07] LABS: Glucose,Whole Blood 185 mg/dL (75-99)
[2018-08-17] MEDS ORDERED: PRIMIDONE 50 MG TAB PO SCH (17:30)
[2018-08-17] MEDS ORDERED: WARFARIN 5 MG TAB PO SCH (18:00)
[2018-08-17 20:15] LABS: Glucose,Whole Blood 181 mg/dL (75-99)
[2018-08-17] MEDS ORDERED: PRIMIDONE 250 MG TAB PO SCH (21:00)
[2018-08-17 21:34] VITALS: TEMP 97.6
[2018-08-18] MEDS: PYRIDOSTIGMINE 60 MG TAB PO SCH ×4 (02:37→15:17)
[2018-08-18 05:13] VITALS: BP 157/71; PULSE 70; RESP 16
[2018-08-18 06:55] LABS: Glucose,Whole Blood 170 mg/dL (75-99)
[2018-08-18 08:16] LABS: Calcium 9.2 mg/dL (8.4-10.2)
[2018-08-18] MEDS ORDERED: hydrALAZINE HCL 25 MG TAB PO SCH (09:00)
[2018-08-18] MEDS: METOPROLOL TARTRATE 50 MG TAB PO SCH (09:35)
[2018-08-18] MEDS: LISINOPRIL 10 MG TAB PO SCH (09:35)
[2018-08-18] MEDS: amLODIPine 10 MG TAB PO SCH (09:35)
[2018-08-18] MEDS: ATORVASTATIN 80 MG TAB PO SCH (09:35)
[2018-08-18] MEDS: PRIMIDONE 50 MG TAB PO SCH (09:36)
[2018-08-18] MEDS: metFORMIN 500 MG TAB PO SCH (09:36)
[2018-08-18] MEDS: PANTOPRAZOLE 40 MG/10 ML VIAL IV SCH (09:36)
[2018-08-18 11:37] LABS: Glucose,Whole Blood 233 mg/dL (75-99)
--- NOTE | 2018-08-18 13:23 | P.DS ---
Providers Date of admission: 08/17/18 00:36 Attending physician: Ubaldo Oglesby Consults: 08/17/18 13:02 Consult Physician Urgent Consulting Provider: Tree Del Valle Consult Reason/Comments: kid stone and hematuria Do you want consulting provider notified?: Yes Primary care physician: Monica Cook [facility] Course: Diagnoses: Right Renal colic. Improved Right nonobstructing kidney stones with hematuria. Improved no more hematuria Elevated lipase. Low suspicion for Acute Pancreatitis. Resolved Diarrhea. C. diff is negative. Improvement History of atrial fibrillation on Coumadin Diabetes mellitus Essential hypertension Hyperlipidemia History of Myasthenia gravis Tremor Hearing difficulty Hospital course: This is a pleasant 77 years old male with past medical history of atrial fibrillation, diabetes mellitus, hearing disorder, hypertension, hyperlipidemia, myasthenia gravis, tremor who presents because of abdominal pain And hematurian. Patient had 2 episodes of urinating bloody urine associated with right sided flank pain, severe radiating to the front and down. Associated with some nausea but no vomiting On admission vitals looks stable. CBC and BMP were unremarkable. Sugar c ontrolled. INR is 2.2 while on Coumadin. Lipase is elevated at 1718, amylase is elevated. Liver enzymes within normal limits. Urinalysis is with elevated WBC at 123 and RBCs More than 182. CT of the abdomen/pelvis: Cardiomegaly, 14 mm nonobstructing stone and right kidney and diverticulosis. Pancreas was unremarkable Creatinine within normal limits. Lipase is coming down from 1780 down to 392. Patient denies epigastric pain. Patient was treated with IV fluids and pain medicine. Patient showed interval improvement. His urine hematuria has resolved and on the day of discharge she has urinated normal color urine. No more flank pain which is completely resolved. Yesterday had about 10-12 episodes of loose bowel movements. C. diff was negative. Today is significantly improving having 2-3 bowel movements at the semisolid. No abdominal pain. No nausea vomiting and is tolerating diet well Urology consult that has been contacted and he recommended since hematuria has resolved he can follow-up in the outpatient setting.Patient informed and he agreed On the day of discharge patient denies chest pain. No dyspnea. No change in urine or bowel habits. No nausea vomiting. And he is walking without difficulty Patient Problems and management plan was discussed with the patient and he verbalized understanding and acceptance Patient was found stable and can be discharging guarded prognosis however he needs follow-up as an outpatient. Gen: patient is a AAOx3, no distress. Obese CVS: S1-S2, RRR, no murmur Lungs: B/L CTA, no wheezing Abdomen: soft, no distention, no tenderness, positive bowel sounds Extremity: no leg edema or induration Time spent more than 35 minutes Patient Condition at Discharge: Stable Plan - Discharge Summary Discharge Rx Participant: No New Discharge Prescriptions: New hydrALAZINE HCL [Apresoline] 25 mg PO BID #60 tab Continue amLODIPine [Norvasc] 10 mg PO QAM Atorvastatin [Lipitor] 80 mg PO QAM Metoprolol Tartrate [Lopressor] 50 mg PO BID #60 tab Lisinopril [Zestril] 10 mg PO DAILY #30 tab Warfarin Sodium [Coumadin] 5 mg PO DAILY Primidone [Mysoline] 25 mg PO AC-SUPPER Pyridostigmine [place] [Mestinon] 60 mg PO Q4H Primidone [Mysoline] 50 mg PO DAILY@1100 metFORMIN HCL ER [Glucophage Xr] 500 mg PO BID Primidone [Mysoline] 250 mg PO HS Loperamide [Imodium] 2 mg PO QID PRN PRN Reason: Diarrhea Discharge Medication List Atorvastatin [Lipitor] 80 mg PO QAM 12/21/15 [History] amLODIPine [Norvasc] 10 mg PO QAM 12/21/15 [History] Lisinopril [Zestril] 10 mg PO DAILY #30 tab 12/25/15 [Rx] Metoprolol Tartrate [Lopressor] 50 mg PO BID #60 tab 12/25/15 [Rx] Warfarin Sodium [Coumadin] 5 mg PO DAILY 02/01/16 [History] Primidone [Mysoline] 25 mg PO AC-SUPPER 08/16/18 [History] Primidone [Mysoline] 50 mg PO DAILY@1100 08/16/18 [History] Primidone [Mysoline] 250 mg PO HS 08/16/18 [History] Pyridostigmine [place] [Mestinon] 60 mg PO Q4H 08/16/18 [History] metFORMIN HCL ER [Glucophage Xr] 500 mg PO BID 08/16/18 [History] Loperamide [Imodium] 2 mg PO QID PRN 08/17/18 [History] hydrALAZINE HCL [Apresoline] 25 mg PO BID #60 tab 08/18/18 [Rx] Follow up Appointment(s)/Referral(s): Monica Grewal III, MD [Primary Care Provider] - 1-2 days Tree Del Valle MD [STAFF PHYSICIAN] - 1 Week
--- NOTE | 2018-08-18 15:22 | P.GSCN ---
History of Present Illness Consult date: 08/18/18 Reason for Consult: Gross hematuria and kidney stone History of present illness: The patient is a 77-year-old male admitted through the emergency room yesterday for evaluation of right-sided abdominal pain and gross hematuria. The patient says that his pain began on 08/16 and was associated with some nausea. He also experienced painless gross hematuria. No clots were passed. The patient noted no change in his normal voiding pattern. He says he usually voids every 2-3 hours during the day and at least 3 times at night. He attributes this to a large fluid intake. He describes a good urinary flow but is not always certain that he voids completely. He says that he has been told that his prostate is enlarged. He has no history of urinary tract infection. He does have a history of a stone in his right kidney. The patient has atrial fibrillation and has taken warfarin. INR at the time of admission was 2.2. Computed tomography scan of the abdomen and pelvis without IV contrast showed evidence of a 15 mm calculus in the upper pole the right kidney without hydronephrosis. KUB confirmed the calculus. Patient also had elevation of his amylase and lipase at the time of admission it was unclear whether his pain was from the kidney or pancreatitis. Since admission the patient says that he feels much better. His gross hematuria has resolved and it has been elected to discharge him this afternoon. Review of Systems - Constitutional Denies chills, Denies fever - Cardiovascular Denies chest pain, Denies shortness of breath - Gastrointestinal Reports as per HPI, Denies change in bowel habits - Genitourinary Reports as per HPI Past Medical History Past Medical History: Atrial Fibrillation, CVA/TIA, Diabetes Mellitus, Eye Disorder, Hearing Disorder / Deafness, Hyperlipidemia, Hypertension, Memory Impairment, Musculoskeletal Disorder, Neurologic Disorder, Prostate Disorder Additional Past Medical History / Comment(s): CARDIAC ARREST IN 2008, MYASTHENIA GRAVIS. tremors, HX Iron deficiency Anemia. New Onset A-Fib 12/2015. Hiatal Hernia. POSS TIA YEARS AGO. BPH. Last Myocardial Infarction Date:: 2008 History of Any Multi-Drug Resistant Organisms: None Reported Past Surgical History: Appendectomy, Cholecystectomy, Heart Catheterization With Stent Additional Past Surgical History / Comment(s): HEMORROIDECTOMY. EGD/ Colonoscopy. STENTS X2. RIA, CARDIOVERSION, cataract surg. August 2016 Past Anesthesia/Blood Transfusion Reactions: No Reported Reaction Date of Last Stent Placement:: 2008 Past Psychological History: No Psychological Hx Reported Smoking Status: Former smoker Past Alcohol Use History: Rare Additional Past Alcohol Use History / Comment(s): QUIT 20 YRS AGO (1993), SMOKED FOR 20 YRS, 1PPD. Past Drug Use History: None Reported - Past Family History Father Family Medical History: Cancer Additional Family Medical History / Comment(s): bone cancer. Mother Additional Family Medical History / Comment(s): when pt was born. Daughter(s) Family Medical History: Cancer Medications and Allergies Home Medications Medication Instructions Recorded Confirmed Type Atorvastatin [Lipitor] 80 mg PO QAM 12/21/15 08/16/18 History amLODIPine [Norvasc] 10 mg PO QAM 12/21/15 08/16/18 History Lisinopril [Zestril] 10 mg PO DAILY #30 tab 12/25/15 08/16/18 Rx Metoprolol Tartrate [Lopressor] 50 mg PO BID #60 tab 12/25/15 08/16/18 Rx Warfarin Sodium [Coumadin] 5 mg PO DAILY 02/01/16 08/16/18 History Primidone [Mysoline] 25 mg PO AC-SUPPER 08/16/18 08/16/18 History Primidone [Mysoline] 50 mg PO DAILY@1100 08/16/18 08/16/18 History Primidone [Mysoline] 250 mg PO HS 08/16/18 08/16/18 History Pyridostigmine [place] [Mestinon] 60 mg PO Q4H 08/16/18 08/16/18 History metFORMIN HCL ER [Glucophage Xr] 500 mg PO BID 08/16/18 08/16/18 History Loperamide [Imodium] 2 mg PO QID PRN 08/17/18 08/17/18 History hydrALAZINE HCL [Apresoline] 25 mg PO BID #60 tab 08/18/18 Rx Allergies Allergy/AdvReac Type Severity Reaction Status Date / Time mayonnaise AdvReac Vomiting Verified 08/16/18 21:36 SOUR CREAM AdvReac Vomiting Uncoded 08/16/18 21:36 Surgical - Exam Vital Signs Temp Pulse Resp BP Pulse Ox 97.9 F 85 20 172/80 95 08/16/18 20:54 08/16/18 20:54 08/16/18 20:54 08/16/18 20:54 08/16/18 20:54 - General well developed, well nourished, no distress, obese - ENT no hearing loss - Neck no masses, no lymphadectomy - Respiratory normal respiratory effort - Abdomen Abdomen: soft, non tender, no organomegaly - Genitourinary normal penis with no external lesions, testicles non-tender Results - Labs 08/17/18 06:34 08/18/18 07:29 Abnormal Lab Results - Last 24 Hours (Table) 08/17/18 08/17/18 08/18/18 Range/Units 17:06 20:10 06:53 PT (9.0-12.0) sec INR (<1.2) Chloride (98-107) mmol/L Glucose (74-99) mg/dL POC Glucose (mg/dL) 185 H 181 H 170 H (75-99) mg/dL 08/18/18 08/18/18 08/18/18 Range/Units 07:29 10:39 11:35 PT 20.0 H (9.0-12.0) sec INR 2.0 H (<1.2) Chloride 108 H (98-107) mmol/L Glucose 151 H (74-99) mg/dL POC Glucose (mg/dL) 233 H (75-99) mg/dL Diabetes panel 08/18/18 Range/Units 07:29 Sodium 141 (137-145) mmol/L Potassium 4.0 (3.5-5.1) mmol/L Chloride 108 H (98-107) mmol/L Carbon Dioxide 22 (22-30) mmol/L BUN 20 (9-20) mg/dL Creatinine 1.08 (0.66-1.25) mg/dL Glucose 151 H (74-99) mg/dL Calcium 9.2 (8.4-10.2) mg/dL Calcium panel 08/18/18 Range/Units 07:29 Calcium 9.2 (8.4-10.2) mg/dL Pituitary panel 08/18/18 Range/Units 07:29 Sodium 141 (137-145) mmol/L Potassium 4.0 (3.5-5.1) mmol/L Chloride 108 H (98-107) mmol/L Carbon Dioxide 22 (22-30) mmol/L BUN 20 (9-20) mg/dL Creatinine 1.08 (0.66-1.25) mg/dL Glucose 151 H (74-99) mg/dL Calcium 9.2 (8.4-10.2) mg/dL Adrenal panel 08/18/18 Range/Units 07:29 Sodium 141 (137-145) mmol/L Potassium 4.0 (3.5-5.1) mmol/L Chloride 108 H (98-107) mmol/L Carbon Dioxide 22 (22-30) mmol/L BUN 20 (9-20) mg/dL Creatinine 1.08 (0.66-1.25) mg/dL Glucose 151 H (74-99) mg/dL Calcium 9.2 (8.4-10.2) mg/dL Assessment and Plan (1) Hematuria Narrative/Plan: The patient's gross hematuria has resolved and may have been related to a combination of his right renal calculus and the use of warfarin. A lower urinary tract cause for the gross hematuria cannot be excluded. In view of this cystoscopy is recommended for further evaluation and can be set up as an outpatient. Current Visit: Yes Status: Acute Code(s): R31.9 - HEMATURIA, UNSPECIFIED SNOMED Code(s): 69687241 (2) Renal calculus, right Narrative/Plan: The patient has a nonobstructive right renal calculus which has been present since at least 2008 when it was noted on a computed tomography scan of the abdomen and pelvis. There has been no significant change in the size of the calculus since that time. It is located in the upper pole the kidney and appears to be in a calyx so the likelihood of passage of the calculus to the region of the ureteropelvic junction where it would cause obstruction is very low. In view of the patient's age and other medical problems further observation of the calculus is probably reasonable. Current Visit: Yes Status: Acute Code(s): N20.0 - CALCULUS OF KIDNEY SNOMED Code(s): 81729702
--- NOTE | 2018-08-18 16:33 | CDI ---
Documentation Clarification Form Date: 08/18/2018 From: Leticia Hernandez RN, CCDS Admit Date: 08/17/2018 12:36:00 AM Patient Name: Rajeev Eagle Visit Number: [id number] Discharge Date: ATTENTION: The Clinical Documentation Specialists (CDI) and [facility] Coding Staff appreciate your assistance in clarifying documentation. Please respond to the clarification below the line at the bottom and electronically sign. The CDI & [facility] Coding staff will review the response and follow-up if needed. Please note: Queries are made part of the Legal Health Record. If you have any questions, please contact the author of this message via ITS. Dr. Anthony Pierce Atrial Fibrillation is documented in the past medical history and in your H&P and further clarification is needed. History/Risk Factors: Atrial Fibrillation, CVA, Diabetes mellitus, hypertension, BPH, Clinical Indicators: 77 year-old male presented for abdominal pain and hematuria. He has a history of new onset A-Fib 12/2015 and continue to be on Coumadin daily. Treatment: Coumadin PO daily In your professional opinion, can you please clarify the type of Atrial Fibrillation, if known? Chronic/Permanent Paroxysmal Persistent Other, please specify Unable to determine (Last Revision: July 2017) Paroxysmal MTDD
[2018-08-19] MEDS ORDERED: PANTOPRAZOLE 40 MG TABLET PO SCH (07:30)
== END 2018-08-18 16:00 | disposition home or self-care (01) | DRG 694 ==
LOC: EC 20:46 → 3NMEDONC 08-17 00:36
PROVIDERS: ADMIT Hospitalist; ATTEND Hospitalist
DX: N20.0 Calculus of kidney (principal); N40.0 Benign prostatic hyperplasia without lower urinary tract symptoms; R31.0 Gross hematuria; Z79.01 Long term (current) use of anticoagulants; Z79.84 Long term (current) use of oral hypoglycemic drugs; R74.8 Abnormal levels of other serum enzymes; E11.9 Type 2 diabetes mellitus without complications; E66.9 Obesity, unspecified; Z68.36 Body mass index [BMI] 36.0-36.9, adult; E78.5 Hyperlipidemia, unspecified; G70.00 Myasthenia gravis without (acute) exacerbation; H91.90 Unspecified hearing loss, unspecified ear; I10 Essential (primary) hypertension; I25.2 Old myocardial infarction; I48.0 Paroxysmal atrial fibrillation; K57.30 Diverticulosis of large intestine without perforation or abscess without bleeding; Z79.899 Other long term (current) drug therapy; Z86.73 Personal history of transient ischemic attack (TIA), and cerebral infarction without residual deficits; Z86.74 Personal history of sudden cardiac arrest; Z87.891 Personal history of nicotine dependence; Z90.49 Acquired absence of other specified parts of digestive tract; Z98.49 Cataract extraction status, unspecified eye; Z80.8 Family history of malignant neoplasm of other organs or systems; R19.7 Diarrhea, unspecified; R41.3 Other amnesia
CPT/HCPCS: 36415; 74018; 74177; 80048; 80053; 81001; 82150; 83690; 85025; 85610; 87324; 96360; 96361; 99285

== ENCOUNTER 2019-04-21 10:04 | Inpatient (IN) | payer MEDICARE ==
[2019-04-21] MEDS: METOPROLOL TARTRATE 5 MG/5 ML VIAL IVP ONE ×2 (10:20→10:25)
[2019-04-21] MEDS: METOPROLOL TARTRATE 5 MG/5 ML VIAL IVP STA ×2 (10:28→10:31)
[2019-04-21 10:47] LABS: Basophils % (A) 0 %; Eosinophils # (A) 0.2 k/uL (0-0.7); Eosinophils % (A) 3 %; HCT 41.8 % (39.0-53.0); HGB 13.3 gm/dL (13.0-17.5); Hypochromasia Slight; Lymphocytes # (A) 0.9 k/uL (1.0-4.8); Lymphocytes % (A) 13 %; MCH 29.1 pg (25.0-35.0); MCHC 31.9 g/dL (31.0-37.0); Mean Platelet Volume 8.5; Monocytes # (A) 0.5 k/uL (0-1.0); Monocytes % (A) 7 %; Neutrophils # (A) 5.4 k/uL (1.3-7.7); Neutrophils % (A) 74 %; Platelet Count 377 k/uL (150-450); RBC 4.59 m/uL (4.30-5.90); RDW 14.1 % (11.5-15.5); WBC 7.3 k/uL (3.8-10.6)
[2019-04-21] MEDS ORDERED: MIDAZOLAM 1 MG/ML 5 ML VIAL IV STA (11:00)
[2019-04-21 11:01] LABS: INR 1.5 (<1.2); Magnesium 1.7 mg/dL (1.6-2.3); Partial Thromboplastin Time 30.9 sec (22.0-30.0); Potassium 4.2 mmol/L (3.5-5.1); Prothrombin Time 15.4 sec (9.0-12.0)
--- NOTE | 2019-04-21 11:21 | XR ---
EXAMINATION TYPE: XR chest 1V portable DATE OF EXAM: 04/21/2019 COMPARISON: 02/24/2008 HISTORY: Chest pain TECHNIQUE: Single frontal view of the chest is obtained. FINDINGS: The heart is enlarged and there is bilateral subsegmental consolidation. Suspect a tiny le ft effusion. Underlying COPD and chronic interstitial lung disease suspected. IMPRESSION: 1. Cardiomegaly with basilar atelectasis or infiltrate and small effusion. Correlate for pneumonia ot herwise consider mild venous congestion.
[2019-04-21] MEDS ORDERED: ASPIRIN 325 MG TAB PO STA (11:38)
[2019-04-21] MEDS ORDERED: HEPARIN SODIUM,PORCINE 5,000 UNIT/ML 1 ML VIAL IV PRN (11:42)
[2019-04-21] MEDS ORDERED: HEPARIN SODIUM,PORCINE 5,000 UNIT/ML 1 ML VIAL IV ONE (11:42)
[2019-04-21] MEDS ORDERED: MORPHINE SULFATE 4 MG/ML SYRINGE IV PRN (11:59)
[2019-04-21] MEDS ORDERED: cefTRIAXone IN SWFI 1,000 MG/10 ML SYRINGE IVP STA (11:59)
[2019-04-21] MEDS ORDERED: NALOXONE 0.4 MG/ML 1 ML VIAL IV PRN (11:59)
[2019-04-21] MEDS ORDERED: ACETAMINOPHEN TAB 325 MG TAB PO PRN (11:59)
[2019-04-21] MEDS: HEPARIN SOD,PORK IN 0.45% NACL 25,000 UNIT in 0.45% NACL 1 250ML.BAG IV SCH (12:04)
[2019-04-21] MEDS ORDERED: MAGNESIUM SULFATE-D5W PMX 1 GM in DEXTROSE/WATER 1 100ML.BAG IVPB ONE (12:07)
--- NOTE | 2019-04-21 12:07 | ED ---
General Adult HPI - General Chief complaint: Chest Pain Stated complaint: arm numbness, sweating Time Seen by Provider: 04/21/19 10:11 Source: patient, family, RN notes reviewed, old records reviewed Mode of arrival: ambulatory Limitations: no limitations - History of Present Illness Initial comments: 78-year-old male history of atrial fibrillation, CAD presents with bilateral upper arm pain, diaphoresis, lightheadedness. Patient is currently on Coumadin with history of atrial fibrillation. He is uncertain if he took his morning medications which include metoprolol. He denies central chest pain or symptoms began approximately 30 minutes prior to arrival. He's had some cough and mild dyspnea which is been ongoing for approximately one year. No fever. No other recent illness, no vomiting or diarrhea. - Related Data Home Medications Medication Instructions Recorded Confirmed Atorvastatin [Lipitor] 80 mg PO QAM 12/21/15 08/16/18 amLODIPine [Norvasc] 10 mg PO QAM 12/21/15 08/16/18 Warfarin Sodium [Coumadin] 5 mg PO DAILY 02/01/16 08/16/18 Primidone [Mysoline] 25 mg PO AC-SUPPER 08/16/18 08/16/18 Primidone [Mysoline] 50 mg PO DAILY@1100 08/16/18 08/16/18 Primidone [Mysoline] 250 mg PO HS 08/16/18 08/16/18 Pyridostigmine [place] [Mestinon] 60 mg PO Q4H 08/16/18 08/16/18 metFORMIN HCL ER [Glucophage Xr] 500 mg PO BID 08/16/18 08/16/18 Loperamide [Imodium] 2 mg PO QID PRN 08/17/18 08/17/18 Previous Rx's Medication Instructions Recorded Lisinopril [Zestril] 10 mg PO DAILY #30 tab 12/25/15 Metoprolol Tartrate [Lopressor] 50 mg PO BID #60 tab 12/25/15 hydrALAZINE HCL [Apresoline] 25 mg PO BID #60 tab 08/18/18 Allergies Allergy/AdvReac Type Severity Reaction Status Date / Time mayonnaise AdvReac Vomiting Verified 08/16/18 21:36 SOUR CREAM AdvReac Vomiting Uncoded 08/16/18 21:36 Review of Systems ROS Statement: Those systems with pertinent positive or pertinent negative responses have been documented in the HPI. ROS Other: All systems not noted in ROS Statement are negative. Past Medical History Past Medical History: Atrial Fibrillation, CVA/TIA, Diabetes Mellitus, Eye Disorder, Hearing Disorder / Deafness, Hyperlipidemia, Hypertension, Memory Impairment, Musculoskeletal Disorder, Neurologic Disorder, Prostate Disorder Additional Past Medical History / Comment(s): CARDIAC ARREST IN 2008, MYASTHENIA GRAVIS. tremors, HX Iron deficiency Anemia. New Onset A-Fib 12/2015. Hiatal Hernia. POSS TIA YEARS AGO. BPH. Last Myocardial Infarction Date:: 2008 History of Any Multi-Drug Resistant Organisms: None Reported Past Surgical History: Appendectomy, Cholecystectomy, Heart Catheterization With Stent Additional Past Surgical History / Comment(s): HEMORROIDECTOMY. EGD/Colonoscopy. STENTS X2. RIA, CARDIOVERSION, cataract surg. August 2016 Past Anesthesia/Blood Transfusion Reactions: No Reported Reaction Date of Last Stent Placement:: 2008 Past Psychological History: No Psychological Hx Reported Smoking Status: Former smoker Past Alcohol Use History: Rare Past Drug Use History: None Reported - Past Family History Father Family Medical History: Cancer Additional Family Medical History / Comment(s): bone cancer. Mother Additional Family Medical History / Comment(s): when pt was born. Daughter(s) Family Medical History: Cancer General Exam Limitations: no limitations General appearance: alert, in distress Head exam: Present: atraumatic, normocephalic Eye exam: Present: normal appearance, PERRL ENT exam: Present: normal exam Neck exam: Present: normal inspection Respiratory exam: Present: rales, decreased breath sounds. Absent: respiratory distress, wheezes Cardiovascular Exam: Present: normal rhythm, tachycardia. Absent: normal heart sounds GI/Abdominal exam: Present: soft, distended. Absent: tenderness, guarding, rebound Neurological exam: Present: alert. Absent: motor sensory deficit Psychiatric exam: Present: normal affect, normal mood Skin exam: Present: warm, intact, diaphoretic. Absent: cyanosis Course Vital Signs 04/21/19 04/21/19 04/21/19 10:18 10:21 10:27 Temperature 97.6 F Pulse Rate 174 H 172 H 165 H Respiratory 19 20 18 Rate Blood Pressure 136/99 128/82 119/84 O2 Sat by Pulse 98 98 97 Oximetry 04/21/19 04/21/19 04/21/19 10:30 10:33 10:36 Temperature Pulse Rate 163 H 161 H 160 H Respiratory 18 20 18 Rate Blood Pressure 114/85 119/78 118/80 O2 Sat by Pulse 97 97 97 Oximetry 04/21/19 04/21/19 11:00 11:05 Temperature Pulse Rate 65 71 Respiratory 18 18 Rate Blood Pressure 163/88 133/82 O2 Sat by Pulse 95 96 Oximetry EKG Findings - EKG Comments: EKG Findings:: EKG obtained at 1011, wide-complex tachycardia, left bundle branch block, suspect SVT with aberrant conduction, rate of 175, QRS duration 150, QTC 471. Repeat EKG obtained at 11 00, after cardioversion, atrial fibrillation with a rate of 77, QRS duration 94, QTC 445, ST segment depression in the lateral precordial leads, no ST segment elevation. Medical Decision Making - Medical Decision Making 78-year-old male presenting with bilateral arm pain, diaphoresis. Patient is pale, diaphoretic with a heart rate in the 170s. This is a wide-complex tachycardia, regular. Previous EKG reviewed, no history of left bundle, previous EKG from 2016 showed sinus rhythm with normal conduction. Patient is given 2.5 mg of metoprolol 4 for a total 10 mg metoprolol with no improvement i n rate. He's cardioverted with 100 J after discussion with building wrecker Dr. Patricio. He returns to rate controlled atrial fibrillation. He has persistent ST segment depression in the precordial leads, no ST segment elevation. He is chest pain-free. His blood pressure improves. He is initiated on heparin as his INR is subtherapeutic. Electrolytes are within normal limits. Normal CBC. Dr. Patricio is updated regarding the patient's situation, and the case is discussed with the admitting physician Dr. Oglesby. - Lab Data Result diagrams: 04/21/19 10:13 04/21/19 10:13 Lab Results 04/21/19 04/21/19 04/21/19 Range/Units 10:13 10:13 10:13 WBC 7.3 (3.8-10.6) k/uL RBC 4.59 (4.30-5.90) m/uL Hgb 13.3 (13.0-17.5) gm/dL Hct 41.8 (39.0-53.0) % MCV 91.0 (80.0-100.0) fL MCH 29.1 (25.0-35.0) pg MCHC 31.9 (31.0-37.0) g/dL RDW 14.1 (11.5-15.5) % Plt Count 377 (150-450) k/uL Neutrophils % 74 % Lymphocytes % 13 % Monocytes % 7 % Eosinophils % 3 % Basophils % 0 % Neutrophils # 5.4 (1.3-7.7) k/uL Lymphocytes # 0.9 L (1.0-4.8) k/uL Monocytes # 0.5 (0-1.0) k/uL Eosinophils # 0.2 (0-0.7) k/uL Basophils # 0.0 (0-0.2) k/uL Hypochromasia Slight PT 15.4 H (9.0-12.0) sec INR 1.5 H (<1.2) APTT 30.9 H (22.0-30.0) sec Sodium 140 (137-145) mmol/L Potassium 4.2 (3.5-5.1) mmol/L Chloride 108 H (98-107) mmol/L Carbon Dioxide 22 (22-30) mmol/L Anion Gap 10 mmol/L BUN 17 (9-20) mg/dL Creatinine 1.16 (0.66-1.25) mg/dL Est GFR (CKD-EPI)AfAm 70 (>60 ml/min/1.73 sqM) Est GFR (CKD-EPI)NonAf 61 (>60 ml/min/1.73 sqM) Glucose 200 H (74-99) mg/dL Calcium 9.0 (8.4-10.2) mg/dL Magnesium 1.7 (1.6-2.3) mg/dL Total Bilirubin 1.0 (0.2-1.3) mg/dL AST 29 (17-59) U/L ALT 24 (4-49) U/L Alkaline Phosphatase 178 H (38-126) U/L Troponin I (0.000-0.034) ng/mL Total Protein 7.0 (6.3-8.2) g/dL Albumin 4.0 (3.5-5.0) g/dL 04/21/19 Range/Units 10:13 WBC (3.8-10.6) k/uL RBC (4.30-5.90) m/uL Hgb (13.0-17.5) gm/dL Hct (39.0-53.0) % MCV (80.0-100.0) fL MCH (25.0-35.0) pg MCHC (31.0-37.0) g/dL RDW (11.5-15.5) % Plt Count (150-450) k/uL Neutrophils % % Lymphocytes % % Monocytes % % Eosinophils % % Basophils % % Neutrophils # (1.3-7.7) k/uL Lymphocytes # (1.0-4.8) k/uL Monocytes # (0-1.0) k/uL Eosinophils # (0-0.7) k/uL Basophils # (0-0.2) k/uL Hypochromasia PT (9.0-12.0) sec INR (<1.2) APTT (22.0-30.0) sec Sodium (137-145) mmol/L Potassium (3.5-5.1) mmol/L Chloride (98-107) mmol/L Carbon Dioxide (22-30) mmol/L Anion Gap mmol/L BUN (9-20) mg/dL Creatinine (0.66-1.25) mg/dL Est GFR (CKD-EPI)AfAm (>60 ml/min/1.73 sqM) Est GFR (CKD-EPI)NonAf (>60 ml/min/1.73 sqM) Glucose (74-99) mg/dL Calcium (8.4-10.2) mg/dL Magnesium (1.6-2.3) mg/dL Total Bilirubin (0.2-1.3) mg/dL AST (17-59) U/L ALT (4-49) U/L Alkaline Phosphatase (38-126) U/L Troponin I 0.019 (0.000-0.034) ng/mL Total Protein (6.3-8.2) g/dL Albumin (3.5-5.0) g/dL Critical Care Time Critical Care Time: Yes Total Critical Care Time: 35 Disposition Clinical Impression: Wide-complex tachycardia, Acute non-ST elevation myocardial infarction (NSTEMI) Disposition: ADMITTED IP TO THIS HOSP Condition: Serious Is patient prescribed a controlled substance at d/c from ED?: No Referrals: Monica Grewal III, MD [Primary Care Provider] - 1-2 days Decision to Admit Reason: Admit from EC Decision Date: 04/21/19 Decision Time: 12:07
[2019-04-21] MEDS ORDERED: DEXTROSE 5% IN WATER 100 ML with AMIODARONE 150 MG IV ONE (13:41)
[2019-04-21] MEDS ORDERED: AMIODARONE 360 MG in DEXTROSE 5% IN WATER 200 ML IV ONE ×2 (13:42)
[2019-04-21] MEDS ORDERED: ALPRAZolam 0.25 MG TAB PO PRN (15:33)
[2019-04-21] MEDS ORDERED: WARFARIN 5 MG TAB PO SCH (18:00)
[2019-04-21] MEDS: PYRIDOSTIGMINE 60 MG TAB PO SCH ×2 (18:25→22:28)
[2019-04-21] MEDS: PRIMIDONE 50 MG TAB PO SCH ×2 (18:26→22:29)
[2019-04-21 18:49] LABS: Glucose,Whole Blood 194 mg/dL (75-99)
[2019-04-21] MEDS: INSULIN ASPART (NovoLOG) 100 UNIT/ML VIAL SQ SCH ×2 (18:59→22:27)
--- NOTE | 2019-04-21 20:18 | HP ---
HISTORY AND PHYSICAL DATE OF SERVICE: 04/21/2019 CHIEF COMPLAINTS: Bilateral arm pain as well as palpitations. HISTORY OF PRESENT ILLNESS: This 78-year-old gentleman with a past medical history of multiple medical problems, including history of atrial fibrillation, history of CVA, TIA, history of diabetes mellitus, history of hypertension, hyperlipidemia, history of memory impairment, history of prostate disorder, history of cardiac arrest in 2008, history of myasthenia gravis, history of iron deficiency anemia, history of nicotine dependence, being followed by Dr. Grewal in the outpatient setting, was complaining of bilateral arm numbness and achiness, left more than the right. The patient also had some palpitations. The patient came to [facility]. The patient was found to have wide QRS complexes, and 100 joules of cardioversion was given by the ER physician. The patient improved significantly and the rhythm was converted in the ER. Atrial fibrillation with diffuse ST-T changes. There is no history of any fever, rigor or chills, no history of headache, loss of consciousness, seizures. Initial troponin was found to be 0.019. BNP is not available. Chest x-ray showed some possible infiltrates, some increased markings in the lower part, and antibiotics have been initiated empirically. PAST MEDICAL HISTORY: 1. History of atrial fibrillation. 2. CVA, TIA. 3. History of diabetes mellitus, type 2. 4. History of hernia. 5. Hypertension. 6. Hyperlipidemia. 7. History of memory impairment. 8. History of cardiac arrest. 9. History of appendectomy, cholecystectomy. HOME MEDICATIONS: 1. Mysoline 250 mg p.o. at bedtime. 2. Mysoline 25 mg before supper. 3. Ecotrin 325 mg p.o. daily. 4. Flomax 0.4. 5. Lopressor 50 mg p.o. b.i.d. 6. Xopenex 1.25 daily. 7. Glucophage XR 500 mg p.o. b.i.d. 8. Coumadin 2.5 mg Saturday, Saturday. 9. Coumadin 5 mg Saturday, Saturday, Saturday, , Saturday. 10.Mestinon 60 mg p.o. q.4. 11.Zestril 20 mg p.o. daily. 12.Lipitor 80 mg each morning. 13.Mysoline 50 mg p.o. daily. ALLERGIES: 1. MAYONNAISE. 2. SOUR CREAM. FAMILY HISTORY: History of bone cancer. SOCIAL HISTORY: Previous history of smoking. No history of alcohol intake. REVIEW OF SYSTEMS: ENT: No diminished hearing. No diminished vision. CARDIOVASCULAR SYSTEM: As mentioned earlier. RESPIRATORY SYSTEM: As mentioned earlier. GI: No nausea, vomiting. : No dysuria or retention. NERVOUS SYSTEM: No numbness, weakness. ALLERGY/IMMUNOLOGY: No asthma, hayfever. MUSCULOSKELETAL: As mentioned earlier. HEMATOLOGY/ONCOLOGY: No history of anemia. ENDOCRINE: History of diabetes mellitus. CONSTITUTIONAL: As mentioned earlier. DERMATOLOGY: Negative. RHEUMATOLOGY: Negative. PSYCHIATRY: As mentioned earlier. PHYSICAL EXAMINATION: Patient is alert and oriented x3. Pulse 56, blood pressure 140/78, respiration 18, temperature normal, pulse ox 97% on 2 L. HEENT: Conjunctivae normal. Oral mucosa moist. NECK: No jugular venous distention. No carotid bruit. No lymph node enlargement. CARDIOVASCULAR SYSTEM: S1, S2 muffled. Irregular. Ejection systolic murmur. RESPIRATORY SYSTEM: Breath sounds diminished at the bases. A few scattered rhonchi and crackles. Expiratory wheezing also present. ABDOMEN: Soft, non-tender. No mass palpable. LEGS: No edema. No swelling. NERVOUS SYSTEM: Higher functions as mentioned earlier. Moves all 4 limbs. No focal motor or sensory deficit. LYMPHATICS: No lymph node palpable in neck, axillae or groin. SKIN: No ulcer, rash, bleeding. JOINTS: No active deforming arthropathy. LABS/IMAGING: CBC within normal limits. INR 1.5. Sodium 140, potassium 4.2. Glucose 200. Otherwise, EKG and chest x-ray reviewed personally by me. ASSESSMENT: 1. Wide complex QRS, tachycardia for evaluation; possible atrial fibrillation with rapid ventricular rate with aberrant conduction, status post cardioversion. Rule out ventricular tachycardia. 2. Atrial fibrillation history. 3. Chest pain, arm numbness. Rule out coronary artery disease, unstable angina. 4. Coumadin monitoring. 5. History of atrial fibrillation, chronic. 6. History of cerebrovascular accident, transient ischemic attack. 7. Diabetes mellitus, type 2. 8. History of hearing difficulty, deafness. 9. Hypertension. 10.Hyperlipidemia. 11.History of memory impairment. 12.History of degenerative joint disease. 13.History of prostate disorder. 14.History of cardiac arrest in 2008. 15.History of myasthenia gravis. 16.History of iron deficiency anemia. 17.History of hiatal hernia. 18.History of appendectomy. 19.History of coronary artery disease, stent. 20.History of hemorrhoidectomy. 21.History of nicotine dependence. 22.Obesity with body mass index of 40.2. 23.FULL CODE. RECOMMENDATIONS AND DISCUSSION: In this 78-year-old gentleman who presented with multiple complex medical issues, we will monitor the patient closely, continue the current medications, continue with symptomatic treatment. Otherwise at this time I recommend continuing with current medications, continue with home medications. Cardiology consultation. A 2D echo with Doppler. Empiric antibiotics will be continued. Otherwise, prognosis is guarded because of multiple complex medical issues. Monitor the PT/INR closely. Heparin for now. Guarded prognosis. Further recommendations to follow. See orders for further details. A copy of this dictation is being forwarded to Dr. Grewal, who is the primary physician. MMODL / IJN: [id number] /
[2019-04-21 22:18] LABS: Glucose,Whole Blood 168 mg/dL (75-99)
--- NOTE | 2019-04-21 22:24 | CONS ---
CONSULTATION This is a 78-year-old gentleman with a known history of ischemic heart disease, chronic persistent atrial fibrillation, who sees Dr. Jay on a regular basis in the office. He also has type 2 diabetes and, unfortunately, he still smokes intermittently. He has been for the last day or so experiencing palpitations, shortness of breath, and this morning started having discomfort in both his arms. He felt that his heart was racing and upon arrival, he was in a wide QRS tachycardia at about 150 beats per minute. His previous EKG suggested atrial fibrillation with a controlled rate and a narrow QRS. Given this, I recommended after talking to the emergency room physician because of symptoms of chest pressure that he should have urgent electrical cardioversion. Patient was on Coumadin already. Cardioversion was performed and he converted into atrial fibrillation, which is his baseline rhythm, and the rate was controlled. Patient's symptoms were resolved. He was resting comfortably. I evaluated the patient and explained to him that wide QRS tachycardia in a patient with a known PCI and ejection fraction in the range of 45% with a prior intervention suggests that we may be dealing with either ischemia or a scar-related ventricular tachycardia. Therefore I placed him on amiodarone bolus and drip as per protocol. Electrolytes were good. I will give him an additional dose of magnesium. We will heparinize him and hold his Coumadin, perform echocardiogram and serial troponins and proceed with coronary angiography tomorrow. Patient understands the rationale, risks, benefits, options and wishes to proceed. PAST MEDICAL HISTORY: 1. CAD with prior PCI; details are unavailable. He apparently had a prior inferior [place], according to the old chart. 2. Type 2 diabetes. 3. Hypertension. 4. Hyperlipidemia. 5. History of persistent atrial fibrillation. 6. 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 MEDICATIONS: Medications at home include: 1. Metoprolol tartrate 50 mg b.i.d. 2. This patient also has myasthenia gravis and takes Mestinon 60 mg every 4 hours during his awake time. 3. Metformin for diabetes. 4. Flomax 0.4 mg daily. 5. Lisinopril 20 mg daily. 6. Atorvastatin 80 mg daily. 7. Coumadin. INR was 1.5. PHYSICAL EXAMINATION: Blood pressure is 130/70, pulse rate is 70 to 80, irregular. HEENT unremarkable. Fundus was not examined by me. NECK: Supple. There is JVD of 1 cm. No carotid bruit. Heart exam reveals S1, S2 with ejection systolic murmur at the base. Soft second heart sound is preserved. Lungs reveal decent air entry. Abdomen is distended, nontender. Lower extremities reveal trace edema, diminished pulses. Central nervous system is grossly within normal limits. EKG revealed wide QRS tachycardia with concordance suggestive of ventricular tachycardia. EKG revealed atrial fibrillation, controlled ventricular rate, nonspecific ST and T-wave changes. IMPRESSION: 1. Wide QRS tachycardia, probably ventricular tachycardia, status post electrical cardioversion with conversion to atrial fibrillation. EKG while in atrial fibrillation is sinus mechanism, nonspecific ST changes and no acute findings. 2. Ischemic cardiomyopathy. 3. Mixed aortic valve disease. 4. Type 2 diabetes. 5. Hypertension. 6. Probable chronic obstructive pulmonary disease. LABORATORY DATA: Laboratory data suggest that his initial troponin troponin is 0.019. His BNP is mildly elevated at 3800. RECOMMENDATIONS: I am recommending coronary angiography tomorrow morning. We will heparinize him, hold Coumadin, continue his other medications, including his Mestinon. Discussed my thoughts in detail with the patient. Thank you very much for the consult. MMODL / IJN: [id number] /
[2019-04-21] MEDS: METOPROLOL TARTRATE 50 MG TAB PO SCH (22:28)
[2019-04-21] MEDS: metFORMIN 500 MG TAB PO SCH (22:28)
[2019-04-22] MEDS: PYRIDOSTIGMINE 60 MG TAB PO SCH ×7 (03:45→23:05)
[2019-04-22 06:19] LABS: Glucose,Whole Blood 170 mg/dL (75-99)
[2019-04-22] MEDS: PANTOPRAZOLE 40 MG TABLET PO SCH (07:10)
[2019-04-22] MEDS: ASPIRIN 81 MG PO SCH (07:16)
[2019-04-22] MEDS: LISINOPRIL 20 MG TAB PO SCH (07:16)
[2019-04-22] MEDS: METOPROLOL TARTRATE 50 MG TAB PO SCH ×2 (07:16→20:37)
[2019-04-22] MEDS: ATORVASTATIN 80 MG TAB PO SCH (07:16)
[2019-04-22] MEDS: INSULIN ASPART (NovoLOG) 100 UNIT/ML VIAL SQ SCH ×4 (07:24→20:38)
[2019-04-22] MEDS ORDERED: LIDOCAINE 1% INJ 10MG/ML (20 ML MDV) ONE ×2 (07:30→07:59)
[2019-04-22] MEDS ORDERED: fentaNYL (PF) 50 MCG/ML 2 ML AMP ONE (07:31)
[2019-04-22] MEDS ORDERED: LIDOCAINE 1% INJ 10MG/ML (20 ML MDV) SQ ONE ×2 (07:57→08:03)
[2019-04-22] MEDS ORDERED: ENALAPRILAT 1.25 MG/ML 1 ML VIAL ONE (07:58)
[2019-04-22] MEDS ORDERED: MIDAZOLAM 2 MG/2 ML VIAL IVP ONE (08:02)
[2019-04-22] MEDS ORDERED: IV FLUID CONTINUATION 700 ML IV ONE ×2 (08:03)
[2019-04-22] MEDS ORDERED: ENALAPRILAT 1.25 MG/ML 1 ML VIAL IV ONE (08:05)
[2019-04-22] MEDS ORDERED: NITROGLYCERIN OINT 1 INCH/GM PACKET TOPICAL ONE ×2 (08:07→08:18)
[2019-04-22] MEDS ORDERED: IOPAMIDOL-370 125ML BTL INJ ONE (08:51)
[2019-04-22] MEDS ORDERED: ASPIRIN 325 MG TAB PO SCH (09:00)
[2019-04-22] MEDS: ALBUTEROL NEBULIZED 2.5 MG/3 ML INHALATION SCH (09:10)
[2019-04-22] MEDS: MULTIVITAMINS, THERA 1 EACH TAB PO SCH (09:24)
[2019-04-22] MEDS: metFORMIN 500 MG TAB PO SCH (09:35)
[2019-04-22] MEDS: TAMSULOSIN 0.4 MG CAP.ER.24H PO SCH (09:41)
[2019-04-22] MEDS: PRIMIDONE 50 MG TAB PO SCH ×3 (09:42→20:36)
[2019-04-22] MEDS: AMIODARONE 200 MG TAB PO SCH ×2 (09:43→20:36)
[2019-04-22] MEDS: SODIUM CHLORIDE 0.9% 1,000 ML IV SCH (09:44)
--- NOTE | 2019-04-22 10:10 | PN ---
PROGRESS NOTE Mr. Eagle is underwent cardiac cath which revealed a total occlusion of mid circumflex after the obtuse marginal branch. The previously stented RCA and obtuse marginal branch are patent. The occlusion in the circumflex appears to be chronic and also patient had a prior inferior LA with a RCA total occlusion in 2007. He probably has an underlying scar and this ventricular tachycardia which was noted yesterday is probably related to the scar rather than to active ongoing myocardial ischemia. He had V-tach to nearly 140 to 150 beats per minute for several hours and that may be the reason for troponin elevation. I will check an additional troponin. Continue IV amiodarone, seek consultation from Dr. Black. We will treat the patient with the amiodarone and ICD and if he has a breakthrough ventricular tachycardia, will then consider the EP studies. I discussed my thoughts in detail with the patient. Will continue current medications, increase activity, seek evaluation by Dr. Black and switch him from IV to oral amiodarone once the infusion has completed 400 mg b.i.d. Discussed my thoughts in detail with the patient. He was seen and evaluated by Dr. Jay who performed coronary angiography today. Catheterization findings are reviewed with the patient and family. MMODL / IJN: [id number] /
[2019-04-22 11:30] LABS: Basophils # (A) 0.1 k/uL (0-0.2); Basophils % (A) 1 %; Eosinophils # (A) 0.1 k/uL (0-0.7); Eosinophils % (A) 2 %; HGB 12.4 gm/dL (13.0-17.5); Hypochromasia Slight; Lymphocytes # (A) 0.7 k/uL (1.0-4.8); Lymphocytes % (A) 9 %; MCH 29.3 pg (25.0-35.0); MCHC 31.9 g/dL (31.0-37.0); Mean Platelet Volume 8.6; Monocytes # (A) 0.5 k/uL (0-1.0); Monocytes % (A) 6 %; Neutrophils # (A) 6.5 k/uL (1.3-7.7); Neutrophils % (A) 81 %; Platelet Count 278 k/uL (150-450); RBC 4.24 m/uL (4.30-5.90); RDW 14.3 % (11.5-15.5); WBC 8.1 k/uL (3.8-10.6)
[2019-04-22 11:45] LABS: Glucose,Whole Blood 155 mg/dL (75-99)
[2019-04-22 11:47] LABS: Calcium 8.5 mg/dL (8.4-10.2)
[2019-04-22] MEDS: HEPARIN SOD,PORK IN 0.45% NACL 25,000 UNIT in 0.45% NACL 1 250ML.BAG IV SCH (12:03)
--- NOTE | 2019-04-22 12:45 | ECHOF ---
Referral Reason:ventricular tachycardia MEASUREMENTS -------- HEIGHT: 0.0 cm WEIGHT: 0.0 kg BP: RVIDd: 4.4 cm (< 3.3) IVSd: 1.9 cm (0.6 - 1.1) LVIDd: 5.1 cm (3.9 - 5.3) LVPWd: 2.0 cm (0.6 - 1.1) IVSs: 2.1 cm LVIDs: 4.7 cm LVPWs: 2.2 cm Ao Diam: 3.0 cm (2.0 - 3.7) AV Cusp: 0.8 cm (1.5 - 2.6) MV EXCURSION: 18.162 mm (> 18.000) MV EF SLOPE: 85 mm/s (70 - 150) EPSS: 1.3 cm AV maxP.35 mmHg AV meanP.20 mmHg AR PHT: 453 ms RAP: 5.00 mmHg RVSP: 50.41 mmHg FINDINGS -------- Atrial fibrillation. This was a technically difficult study with suboptimal apical views. The left ventricular size is normal. There is severe concentric left ventricular hypertrophy. The re is moderate global hypokinesis of LV . Overall left ventricular systolic function is severely im paired with, an EF between 20 - 25 %. Left ventricular fillimg pressure cannot be estimated due to Atrial fibrillation. The right ventricle is moderately enlarged. LA is moderately dilated 34-39 ml/m2 The right atrium is moderately enlarged. 5.0mg of Lumason was utilized for enhancement of images Interatrial and interventricular septum intact. There is mild aortic regurgitation. There is moderate aortic stenosis present. Peak/mean gradient across the Aortic Valve is 27.35mmHg / 13.20mmHg. Mild mitral annular calcification present. Moderate mitral regurgitation is present. Moderate tricuspid regurgitation present. There is moderate pulmonary hypertension. The right issa tricular systolic pressure, as measured by Doppler, is 50.41mmHg. Trace/mild (physiologic) pulmonic regurgitation. The aortic root size is normal. IVC Not well visulized. There is no pericardial effusion. CONCLUSIONS -------- 1. Atrial fibrillation. 2. This was a technically difficult study with suboptimal apical views. 3. The left ventricular size is normal. 4. There is severe concentric left ventricular hypertrophy. 5. There is moderate global hypokinesis of LV . 6. Overall left ventricular systolic function is severely impaired with, an EF between 20 - 25 %. 7. Left ventricular fillimg pressure cannot be estimated due to Atrial fibrillation. 8. The right ventricle is moderately enlarged. 9. LA is moderately dilated 34-39 ml/m2 10. The right atrium is moderately enlarged. 11. 5.0mg of Lumason was utilized for enhancement of images 12. Interatrial and interventricular septum intact. 13. There is mild aortic regurgitation. 14. There is moderate aortic stenosis present. 15. Peak/mean gradient across the Aortic Valve is 27.35mmHg / 13.20mmHg. 16. Mild mitral annular calcification present. 17. Moderate mitral regurgitation is present. 18. Moderate tricuspid regurgitation present. 19. There is moderate pulmonary hypertension. 20. The right ventricular systolic pressure, as measured by Doppler, is 50.41mmHg. 21. Trace/mild (physiologic) pulmonic regurgitation. 22. The aortic root size is normal. 23. IVC Not well visulized. 24. There is no pericardial effusion. HEALTH ANALYTICS CONSULTANT: Nicole Thorne RDCS
--- NOTE | 2019-04-22 12:55 | CC ---
CARDIAC CATHETERIZATION REPORT INDICATION: Non ST-segment elevation MN and wide-complex tachycardia. PROCEDURE NOTE: After obtaining informed consent, left heart catheterization and coronary angiogram are performed via the left femoral artery using standard Tyson catheters. The patient tolerated the procedure well without any obvious immediate complications. Femoral angiogram was performed and Angio-Seal was deployed for hemostasis. FINDINGS: 1. HEMODYNAMICS: Left ventricular end-diastolic pressure is 18 mm. There is no significant gradient across the aortic valve. 2. LEFT VENTRICULOGRAM: Left ventriculogram is not performed. 3. ANGIOGRAPHIC DATA: Left Main Coronary Artery: Left main coronary artery appears calcified but is free of significant stenosis. Divides into left anterior descending coronary artery and circumflex coronary artery. Circumflex coronary artery appears totally occluded as it becomes the AV groove circumflex and there are collaterals from the distal right coronary artery. LAD was previously stented in the midportion. The stent appears patent. Past the stent, there is a 40% stenosis noted. Right coronary artery is a large dominant system that shows fkls-mo-lenpyarb atherosclerotic plaque in the midportion. CONCLUSIONS: 1. Completely occluded distal circumflex coronary artery with patent stent within the left anterior descending artery. 2. Collaterals from the right coronary artery to circumflex coronary artery. PLAN: Angiographic data was reviewed by Dr. Odilon Patricio, the on-call surveillance camera technician who evaluated the patient on the floor. He felt that the elevated troponin is related to the wide-complex tachycardia and that the circumflex coronary artery lesion is chronic and the patient was advised medical therapy. MMODL / IJN: [id number] /
[2019-04-22] MEDS: SPIRONOLACTONE 25 MG TAB PO SCH (13:10)
--- NOTE | 2019-04-22 15:31 | PN ---
PROGRESS NOTE DATE OF SERVICE: 04/22/2019 This 78-year-old gentleman was admitted with possible acute non ST-segment elevation myocardial infarction and wide-complex QRS tachycardia, possibly ventricular tachycardia, and was monitored in the ER. The patient was shocked with DC shock and the patient underwent cardiac catheterization, which showed completely occluded distal circumflex artery with a patent stent in the LAD, collaterals from the RCA to circumflex noted and the patient has been closely monitored. No chest pain or palpitations. No fever. The circumflex coronary lesion was thought to be chronic and recommended to continue medical treatment per Cardiology. No chest pain or palpitations. No fever. PHYSICAL EXAMINATION: Alert and oriented x3. Pulse is 80, blood pressure is 150/79, respirations 18, temperature 97.9, pulse ox 96% on room air. noted. HEENT: Conjunctivae normal. NECK: No jugular venous distension. CARDIOVASCULAR SYSTEM: S1, S2 muffled. RESPIRATORY SYSTEM: Breath sounds diminished at the bases. Few scattered rhonchi. ABDOMEN: Soft, nontender. LEGS: No edema, no swelling. NERVOUS SYSTEM: No focal deficits. LABS: WBC 8.1, hemoglobin is 12.4. Sodium 140, potassium 4, glucose 168. Troponin is 5.380. ASSESSMENT: 1. Wide-complex QRS tachycardia, possible ventricular tachycardia, status post DC cardioversion. 2. Atrial fibrillation. 3. Chest pain, possible acute non ST-segment elevation myocardial infarction, status post cardiac catheterization and completely occluded distal circumflex coronary artery thought to be chronic in nature. 4. Patent stent in the left anterior descending. 5. Coumadin monitoring. 6. History of cerebrovascular accident, transient ischemic attack. 7. History of diabetes mellitus type 2. 8. History of hearing difficulty, deafness. 9. Hypertension. 10.Hyperlipidemia. 11.History of memory impairment. 12.History of degenerative joint disease. 13.History of prostate disorder. 14.History of cardiac arrest in 2008. 15.History of myasthenia gravis. 16.History of iron deficiency anemia. 17.History of hiatal hernia. 18.History of appendectomy. 19.History of coronary artery disease, stent. 20.History of hemorrhoidectomy. 21.History of nicotine dependence. 22.Obesity with body mass index of 40.2. 23.FULL CODE. RECOMMENDATION: I recommend to continue current medications, continue with symptomatic treatments, continue with beta blockers and amiodarone. Otherwise, empiric antibiotics are also being given. Further recommendations to follow. Repeat labs tomorrow. MMODL / IJN: [id number] /
[2019-04-22] MEDS ORDERED: ONDANSETRON 4 MG/2 ML VIAL IVP STA (16:24)
[2019-04-22 16:45] LABS: Glucose,Whole Blood 161 mg/dL (75-99)
[2019-04-22 17:14] LABS: Appearance,Urine Clear (Clear); Bilirubin,Urine Negative (Negative); Blood,Urine Small (Negative); Color,Urine Yellow; Glucose,Urine (UA) Negative (Negative); Ketones,Urine Negative (Negative); Leukocyte Esterase,Urine Small (Negative); Nitrite,Urine Negative (Negative); Protein,Urine Trace (Negative); RBC,Urine 12 /hpf (0-5); Specific Gravity,Urine 1.036 (1.001-1.035); Squamous Epithelial Cell,Urine 1 /hpf (0-4); Urobilinogen,Urine <2.0 mg/dL (<2.0); WBC,Urine 6 /hpf (0-5)
[2019-04-22 20:04] LABS: Glucose,Whole Blood 212 mg/dL (75-99)
[2019-04-23] MEDS: PYRIDOSTIGMINE 60 MG TAB PO SCH ×6 (05:52→23:29)
[2019-04-23 06:00] LABS: Basophils % (A) 1 %; Eosinophils # (A) 0.1 k/uL (0-0.7); Eosinophils % (A) 1 %; HCT 35.5 % (39.0-53.0); HGB 11.3 gm/dL (13.0-17.5); Hypochromasia Moderate; Lymphocytes # (A) 0.8 k/uL (1.0-4.8); Lymphocytes % (A) 12 %; MCH 29.3 pg (25.0-35.0); MCHC 31.9 g/dL (31.0-37.0); Mean Platelet Volume 8.7; Monocytes # (A) 0.5 k/uL (0-1.0); Monocytes % (A) 7 %; Neutrophils % (A) 77 %; Platelet Count 268 k/uL (150-450); RBC 3.86 m/uL (4.30-5.90); RDW 14.1 % (11.5-15.5); WBC 6.5 k/uL (3.8-10.6)
[2019-04-23 06:03] LABS: Glucose,Whole Blood 152 mg/dL (75-99)
[2019-04-23 06:07] LABS: INR 1.3 (<1.2); Partial Thromboplastin Time 44.7 sec (22.0-30.0)
[2019-04-23 06:18] LABS: Calcium 8.5 mg/dL (8.4-10.2); Potassium 3.8 mmol/L (3.5-5.1)
[2019-04-23] MEDS: PANTOPRAZOLE 40 MG TABLET PO SCH (06:33)
[2019-04-23] MEDS: INSULIN ASPART (NovoLOG) 100 UNIT/ML VIAL SQ SCH ×4 (06:33→20:30)
[2019-04-23] MEDS: SODIUM CHLORIDE 0.9% 1,000 ML IV SCH ×2 (06:34→22:49)
[2019-04-23] MEDS: ALBUTEROL NEBULIZED 2.5 MG/3 ML INHALATION SCH (07:53)
[2019-04-23] MEDS: SPIRONOLACTONE 25 MG TAB PO SCH (08:22)
[2019-04-23] MEDS: AMIODARONE 200 MG TAB PO SCH ×2 (08:22→20:30)
[2019-04-23] MEDS: TAMSULOSIN 0.4 MG CAP.ER.24H PO SCH ×2 (08:22→08:34)
[2019-04-23] MEDS: ATORVASTATIN 80 MG TAB PO SCH (08:22)
[2019-04-23] MEDS: ASPIRIN 81 MG PO SCH (08:22)
[2019-04-23] MEDS: METOPROLOL TARTRATE 50 MG TAB PO SCH ×2 (08:22→20:30)
[2019-04-23] MEDS: LISINOPRIL 20 MG TAB PO SCH (08:22)
[2019-04-23] MEDS: HEPARIN SOD,PORK IN 0.45% NACL 25,000 UNIT in 0.45% NACL 1 250ML.BAG IV SCH (08:38)
[2019-04-23] MEDS: POTASSIUM CHLORIDE ER 20 MEQ TAB.ER PO SCH (09:54)
[2019-04-23] MEDS: MULTIVITAMINS, THERA 1 EACH TAB PO SCH (11:24)
[2019-04-23] MEDS: FUROSEMIDE 20 MG TAB PO SCH (11:24)
[2019-04-23] MEDS: PRIMIDONE 50 MG TAB PO SCH ×3 (11:25→20:30)
[2019-04-23 11:48] LABS: Glucose,Whole Blood 157 mg/dL (75-99)
--- NOTE | 2019-04-23 12:11 | PN ---
PROGRESS NOTE Mr. Eagle is a gentleman who presented with a wide QRS tachycardia, underwent electrical cardioversion followed by cardiac cath which revealed total occlusion of mid circumflex and previous inferior LA. This gentleman had an echocardiogram which revealed an ejection fraction of about 20%-25% with severe impairment and previous ejection fraction was in the range of 40% or so. However, he has mild aortic stenosis as well and moderate pulmonary hypertension. We will continue his current medical regimen. He is on oral amiodarone. I am recommending that we proceed with an ICD. Dr. Black will see him today. Patient's magnesium levels are acceptable. Potassium is 3.8. I am giving additional potassium supplements. The patient is not in overt heart failure. I will add a small dose of Lasix 20 mg every morning. He is already on lisinopril, Aldactone, and beta blockers. Will check BMP in the morning. MMODL / IJN: [id number] /
[2019-04-23] MEDS: LOPERAMIDE 2 MG CAP PO PRN (14:45)
--- NOTE | 2019-04-23 15:12 | CDI ---
Documentation Clarification Form Date: 04/23/2019 02:53:34 PM From: Mary Jane Escudero RN CCDS Admit Date: 04/21/2019 11:59:00 AM Patient Name: Rajeev Eagle Visit Number: [id number] Discharge Date: ATTENTION: The Clinical Documentation Specialists (CDI) and [facility] Coding Staff appreciate your assistance in clarifying documentation. Please respond to the clarification below the line at the bottom and electronically sign. The CDI & [facility] Coding staff will review the response and follow-up if needed. Please note: Queries are made part of the Legal Health Record. If you have any questions, please contact the author of this message via ITS. Dr. Jose Patricio The patient is not in overt Heart failure Documented in your progress note 04/23/2019 History/Risk Factors: 78-year-old male presents to the ED with bilateral arm pain, diaphoresis and lightheadedness. Medical history of Atrial Fibrillation CAD, TIA/CVA; HLD; HTN; Clinical Indicators: VS/Pulse OX: 04/21/2019 136/99 174 97.6 19 98% ra BNP: 3890 Echocardiogram Results:04/21/19 Left ventricular systolic function is severely impaired with, an EF between 20 25%. Chest X Ray: Cardiomegaly with basilar atelectasis or infiltrate and small effusion. Treatment: 04/23/19 Lasix 20mg po daily; 04/21/19 Lopressor 50mg bid deanna ;04/22/2019 Lisinopril 20mg daily In your professional opinion, can you please clarify the acuity and type of CHF if known? * Chronic Systolic Heart Failure * Unable to Determine * Other, please specify (Last Revision: July 2017) MTDD
[2019-04-23 16:45] LABS: Glucose,Whole Blood 175 mg/dL (75-99)
--- NOTE | 2019-04-23 17:15 | P.CRDCN ---
History of Present Illness History of present illness: Patient fluid and examined with Iris Eugene Single chamber ICD recommended for secondary prevention of sudden cardiac Patient presented with sustained hemodynamically unstable ventricular tachycardia requiring 6 denies cardioversion Severe underlying cardiomyopathy and heart failure Underlying permanent atrial fibrillation Myasthenia gravis Anesthesia consultation prior to the procedure Heparin to be stopped when INR reaches 2.0 Start Coumadin at a lower dose compared to his home dose, 2.5 g by mouth daily Likely ICD implant tomorrow on Saturday 6 PM Discussed the patient discussed with the mass Anesthesia consult placed Past Medical History Past Medical History: Atrial Fibrillation, COPD, CVA/TIA, Diabetes Mellitus, Eye Disorder, Hearing Disorder / Deafness, Hyperlipidemia, Hypertension, Memory Impairment, Musculoskeletal Disorder, Neurologic Disorder, Prostate Disorder Additional Past Medical History / Comment(s): CARDIAC ARREST IN 2008, MYASTHENIA GRAVIS. tremors, HX Iron deficiency Anemia. New Onset A-Fib 12/2015. Hiatal Hernia. POSS TIA YEARS AGO. BPH. Last Myocardial Infarction Date:: 2008 History of Any Multi-Drug Resistant Organisms: None Reported Past Surgical History: Appendectomy, Cholecystectomy, Heart Catheterization With Stent Additional Past Surgical History / Comment(s): HEMORROIDECTOMY. EGD/Colonoscopy. STENTS X2. RIA, CARDIOVERSION, cataract surg. August 2016 Past Anesthesia/Blood Transfusion Reactions: No Reported Reaction Date of Last Stent Placement:: 2008 Past Psychological History: No Psychological Hx Reported Additional Psychological History / Comment(s): DENIES. Smoking Status: Former smoker Past Alcohol Use History: Rare Additional Past Alcohol Use History / Comment(s): QUIT 20 YRS AGO (1993), SMOKED FOR 20 YRS, 1PPD. Past Drug Use History: None Reported - Past Family History Father Family Medical History: Cancer Additional Family Medical History / Comment(s): bone cancer. Mother Additional Family Medical History / Comment(s): when pt was born. Daughter(s) Family Medical History: Cancer Medications and Allergies Home Medications Medication Instructions Recorded Confirmed Type RX: Atorvastatin [Lipitor] 80 mg PO QAM 12/21/15 04/21/19 History RX: Metoprolol Tartrate [Lopressor] 50 mg PO BID #60 tab 12/25/15 04/21/19 Rx RX: Warfarin Sodium [Coumadin] 5 mg PO SUTUWETHSA 02/01/16 04/21/19 History RX: Primidone [Mysoline] 25 mg PO AC-SUPPER 08/16/18 04/21/19 History RX: Primidone [Mysoline] 50 mg PO DAILY@1100 08/16/18 04/21/19 History RX: Primidone [Mysoline] 250 mg PO HS 08/16/18 04/21/19 History RX: Pyridostigmine [place] 60 mg PO Q4H 08/16/18 04/21/19 History [Mestinon] RX: metFORMIN HCL ER [Glucophage 500 mg PO BID 08/16/18 04/21/19 History Xr] Aspirin EC [Ecotrin] 325 mg PO DAILY 04/21/19 04/21/19 History Levalbuterol Nebulized [Xopenex 1.25 mg INHALATION RT-DAILY 04/21/19 04/21/19 History Nebulized] Lisinopril [Zestril] 20 mg PO DAILY 04/21/19 04/21/19 History Tamsulosin HCl [Flomax] 0.4 mg PO DAILY 04/21/19 04/21/19 History Warfarin [Coumadin] 2.5 mg PO MOFR 04/21/19 04/21/19 History Allergies Allergy/AdvReac Type Severity Reaction Status Date / Time [facility] AdvReac Vomiting Verified 04/21/19 12:32 SOUR CREAM AdvReac Vomiting Uncoded 04/21/19 12:32 Physical Exam Vitals: Vital Signs Temp Pulse Pulse Resp BP Pulse Ox 04/23/19 16:00 98.0 F 85 20 147/85 94 L 04/23/19 11:14 98.1 F 64 20 137/72 97 04/23/19 08:03 80 16 04/23/19 08:00 98.0 F 81 20 134/61 96 04/23/19 07:53 75 16 94 L 04/23/19 04:00 98.0 F 90 18 146/76 95 04/22/19 23:37 97.9 F 65 17 149/85 93 L 04/22/19 19:46 98.0 F 71 18 183/84 98 04/22/19 19:21 89 L 04/22/19 18:33 129/88 Intake and Output 04/23/19 04/23/19 04/23/19 06:59 14:59 22:59 Intake Total 77.411 615.655 Balance 77.411 615.655 Intake: Intake, IV Titration 77.411 135.655 Amount Heparin Sod,Pork in 0.45% 77.411 135.655 NaCl 25,000 unit In 0.45 % NaCl 1 250ml.bag @ 8.6 UNITS/KG/HR 10.002 mls/hr IV .Q24H [facility] Rx#: [id number] Oral 480 Other: Voiding Method Toilet Toilet Diaper # Voids 2 1 # Bowel Movements 2 Weight 113.3 kg Results 04/23/19 05:41 04/23/19 05:41 Coagulation 04/22/19 04/23/19 Range/Units 22:00 05:41 PT 13.0 H (9.0-12.0) sec APTT 57.6 H 44.7 H (22.0-30.0) sec CBC 04/23/19 Range/Units 05:41 WBC 6.5 (3.8-10.6) k/uL RBC 3.86 L (4.30-5.90) m/uL Hgb 11.3 L (13.0-17.5) gm/dL Hct 35.5 L (39.0-53.0) % Plt Count 268 (150-450) k/uL Comprehensive Metabolic Panel 04/23/19 Range/Units 05:41 Sodium 142 (137-145) mmol/L Potassium 3.8 (3.5-5.1) mmol/L Chloride 113 H (98-107) mmol/L Carbon Dioxide 22 (22-30) mmol/L BUN 17 (9-20) mg/dL Creatinine 1.19 (0.66-1.25) mg/dL Glucose 141 H (74-99) mg/dL Calcium 8.5 (8.4-10.2) mg/dL Current Medications Generic Name Dose Route Start Last Admin Trade Name Freq PRN Reason Stop Dose Admin Acetaminophen 650 mg 04/21/19 11:59 04/22/19 18:34 Tylenol Tab PO 650 mg Q6HR PRN Administration Mild Pain or Fever > 100.5 Albuterol Sulfate 2.5 mg 04/22/19 08:00 04/23/19 07:53 Ventolin Nebulized INHALATION 2.5 mg RT-DAILY [facility] Administration Alprazolam 0.25 mg 04/21/19 15:33 Xanax PO TID PRN Anxiety Amiodarone HCl 400 mg 04/22/19 09:30 04/23/19 08:22 Cordarone PO 400 mg BID [facility] Administration Aspirin 81 mg 04/22/19 09:00 04/23/19 08:22 Aspirin PO 81 mg DAILY [facility] Administration Atorvastatin Calcium 80 mg 04/22/19 09:00 04/23/19 08:22 Lipitor PO 80 mg QAM [facility] Administration Furosemide 20 mg 04/23/19 11:15 04/23/19 11:24 Lasix PO 20 mg DAILY [facility] Administration Heparin Sodium (Porcine) 0 unit 04/21/19 11:42 04/21/19 18:21 Heparin IV 2,900 unit PER PROTOCOL PRN Administration Low PTT Protocol Heparin Sodium/Sodium Chloride 250 mls @ 10.002 mls/hr 04/21/19 11:45 04/23/19 11:15 25,000 unit/ Sodium Chloride IV 11.6 units/kg/hr .Q24H [facility] 13.491 mls/hr Titration Protocol 8.6 UNITS/KG/HR Ceftriaxone Sodium 1 gm/ 50 mls @ 100 mls/hr 04/21/19 16:00 04/23/19 08:22 Sodium Chloride IVPB 100 mls/hr Q24HR [facility] Administration Sodium Chloride 1,000 mls @ 75 mls/hr 04/22/19 09:30 04/23/19 06:34 Saline 0.9% IV 75 mls/hr .[id number] [facility] Administration Sodium Chloride 1,000 mls @ 50 mls/hr 04/24/19 12:00 Saline 0.9% IV .Q20H [facility] Sodium Chloride 1,000 mls @ 50 mls/hr 04/24/19 12:00 Saline 0.9% IV .Q20H [facility] Cefazolin Sodium 2 gm/ Sodium 50 mls @ 100 mls/hr 04/24/19 16:00 Chloride IVPB 04/24/19 16:29 ONCE ONE Cefazolin Sodium 1,000 mg/ 250 mls @ 500 mls/hr 04/24/19 16:00 Sodium Chloride IRRIGATION 04/24/19 16:29 ONCE ONE Insulin Aspart 0 unit 04/21/19 17:30 04/23/19 15:46 Novolog SQ Not Given ACHS [facility] Protocol Lisinopril 20 mg 04/22/19 09:00 04/23/19 08:22 Zestril PO 20 mg DAILY [facility] Administration Loperamide HCl 2 mg 04/23/19 12:53 04/23/19 14:45 Imodium PO 2 mg QID PRN Administration Diarrhea Metformin HCl 500 mg 04/24/19 21:00 Glucophage PO BID [facility] Metoprolol Tartrate 50 mg 04/21/19 21:00 04/23/19 08:22 Lopressor PO 50 mg BID [facility] Administration Morphine Sulfate 4 mg 04/21/19 11:59 Morphine Sulfate (Inj) IV Q4HR PRN Severe Pain Multivitamins 1 each 04/22/19 12:00 04/23/19 11:24 Theragran PO 1 each DAILY@1200 [facility] Administration Naloxone HCl 0.2 mg 04/21/19 11:59 Narcan IV Q2M PRN Opioid Reversal Pantoprazole Sodium 40 mg 04/22/19 07:30 04/23/19 06:33 Protonix PO 40 mg AC-BRKFST [facility] Administration Potassium Chloride 20 meq 04/23/19 09:00 04/23/19 09:54 K-Dur 20 PO 20 meq DAILY [facility] Administration Primidone 250 mg 04/21/19 21:00 04/22/19 20:36 Mysoline PO 250 mg HS [facility] Administration Primidone 25 mg 04/21/19 17:30 04/22/19 16:29 Mysoline PO 25 mg AC-SUPPER [facility] Administration Primidone 50 mg 04/22/19 11:00 04/23/19 11:25 Mysoline PO 50 mg DAILY@1100 [facility] Administration Pyridostigmine [place] 60 mg 04/21/19 16:00 04/23/19 11:24 Mestinon PO 60 mg Q4HR [facility] Administration Spironolactone 25 mg 04/22/19 12:30 04/23/19 08:22 Aldactone PO 25 mg DAILY [facility] Administration Tamsulosin HCl 0.4 mg 04/22/19 09:00 04/23/19 08:34 Flomax PO Not Given DAILY [facility] Warfarin Sodium 2.5 mg 04/23/19 18:00 Coumadin PO DAILY@1800 [facility] Protocol Intake and Output 04/23/19 04/23/19 04/23/19 06:59 14:59 22:59 Intake Total 77.411 615.655 Balance 77.411 615.655 Intake: Intake, IV Titration 77.411 135.655 Amount Heparin Sod,Pork in 0.45% 77.411 135.655 NaCl 25,000 unit In 0.45 % NaCl 1 250ml.bag @ 8.6 UNITS/KG/HR 10.002 mls/hr IV .Q24H [facility] Rx#: [id number] Oral 480 Other: Voiding Method Toilet Toilet Diaper # Voids 2 1 # Bowel Movements 2 Weight 113.3 kg 04/23/19 05:41 04/23/19 05:41
--- NOTE | 2019-04-23 17:40 | P.HPCAR ---
<Iris Eugene - Last Filed: 04/23/19 17:39> History of Present Illness This is Iris Eugene PA-C dictating an electrophysiology consult on this patient The patient was interviewed and examined by me as well as by Dr. Black Case discussed with Dr. Black and he agrees with the plan of care IMPRESSION / ASSESSMENT: Symptomatic wide complex tachycardia with an atypical left bundle branch block morphology and QS pattern in inferior leads, consistent with ventricular tachycardia, requiring electrical cardioversion CAD status post stenting, recent coronary angiogram showing no progression of coronary artery disease Ischemic cardiomyopathy, recent echocardiogram showing EF 20-25% Persistent atrial fibrillation, rate controlled, Coumadin was on hold for cath Hypertension Dyslipidemia Diabetes current smoker PLAN: proceed with single-chamber ICD implantation, detailed discussion with the patient about the procedure, indications, risks and benefits, he agrees to proceed Restart Coumadin 2.5 mg daily and stop heparin when INR is therapeutic, check INR daily Continue with amiodarone, should reduce the dose after a month and gradually reduce it thereafter Maximize cardiomyopathy medications as tolerated HPI Patient is a 78-year-old male with a past medical history of CAD status post stenting, ischemic cardiomyopathy, persistent atrial fibrillation, diabetes, hypertension, dyslipidemia and smoker who presented with complaints of arm discomfort. Patient woke up with discomfort going down both arms that reminded him of the discomfort he had prior to previous SD. He was very diaphoretic, short of breath, and a little lightheaded. He did not pass out. Denies any chest discomfort or palpitations. Upon presentation to the emergency department he was found to be in a wide complex tachycardia with an atypical left bundle branch block morphology and QS pattern in inferior leads, fractionation in the inferior leads, V1, and V5 V6. He underwent electrical cardioversion to atrial fibrillation and was started on amiodarone. Subsequent EKG shows atrial fibrillation with controlled ventricular response, ventricular rate 77 bpm. his troponins were abnormal and he underwent coronary angiography showing a patent stent to the LAD, chronic total occlusion of the distal circumflex with collaterals from the RCA, no progression of coronary artery disease. Echocardiogram showed EF 20-25%, severe concentric LVH, global hypokinesis. Patient seen and examined sitting up at the side of the bed. Denies any further episodes. No arm discomfort, chest discomfort, or chest tightness. He is short of breath at baseline but denies any worsening shortness of breath. He denies any palpitations, dizziness or syncope. ROS: No fevers, chills or rigors, no cough, phlegm or expectoration, no nausea, vomiting or diarrhea, no hematuria, dysuria, no musculoskeletal complaints, no strokes or seizures, no skin lesions. EXAMINATION: Temperature 98.0F, pulse 85, respirations 20, blood pressure 147/85, oxygen saturation 94% on room air Patient seen and examined sitting up at the side of the bed, in no acute distress Lungs mildly diminished at the bases with few scattered rhonchi Heart is irregularly irregular, systolic murmur audible No elevated JVD No lower extremity edema Abdomen is soft and nontender to palpation REVIEW OF LABS, ECG & MEDICAL DATA WBC 6.5, hemoglobin 11.3, platelets 268, potassium 3.8, BUN 17, creatinine 1.19, magnesium 2 Physical Exam Vitals: Vital Signs Temp Pulse Pulse Resp BP Pulse Ox 04/23/19 16:00 98.0 F 85 20 147/85 94 L 04/23/19 11:14 98.1 F 64 20 137/72 97 04/23/19 08:03 80 16 04/23/19 08:00 98.0 F 81 20 134/61 96 04/23/19 07:53 75 16 94 L 04/23/19 04:00 98.0 F 90 18 146/76 95 04/22/19 23:37 97.9 F 65 17 149/85 93 L 04/22/19 19:46 98.0 F 71 18 183/84 98 04/22/19 19:21 89 L 04/22/19 18:33 129/88 Intake and Output 04/23/19 04/23/19 04/23/19 06:59 14:59 22:59 Intake Total 77.411 615.655 Balance 77.411 615.655 Intake: Intake, IV Titration 77.411 135.655 Amount Heparin Sod,Pork in 0.45% 77.411 135.655 NaCl 25,000 unit In 0.45 % NaCl 1 250ml.bag @ 8.6 UNITS/KG/HR 10.002 mls/hr IV .Q24H [facility] Rx#: [id number] Oral 480 Other: Voiding Method Toilet Toilet Diaper # Voids 2 1 # Bowel Movements 2 Weight 113.3 kg Past Medical History Past Medical History: Atrial Fibrillation, COPD, CVA/TIA, Diabetes Mellitus, Eye Disorder, Hearing Disorder / Deafness, Hyperlipidemia, Hypertension, Memory Impairment, Musculoskeletal Disorder, Neurologic Disorder, Prostate Disorder Additional Past Medical History / Comment(s): CARDIAC ARREST IN 2008, MYASTHENIA GRAVIS. tremors, HX Iron deficiency Anemia. New Onset A-Fib 12/2015. Hiatal Hernia. POSS TIA YEARS AGO. BPH. Last Myocardial Infarction Date:: 2008 History of Any Multi-Drug Resistant Organisms: None Reported Past Surgical History: Appendectomy, Cholecystectomy, Heart Catheterization With Stent Additional Past Surgical History / Comment(s): HEMORROIDECTOMY. EGD/Colonoscopy. STENTS X2. RIA, CARDIOVERSION, cataract surg. August 2016 Past Anesthesia/Blood Transfusion Reactions: No Reported Reaction Date of Last Stent Placement:: 2008 Past Psychological History: No Psychological Hx Reported Additional Psychological History / Comment(s): DENIES. Smoking Status: Former smoker Past Alcohol Use History: Rare Additional Past Alcohol Use History / Comment(s): QUIT 20 YRS AGO (1993), SMOKED FOR 20 YRS, 1PPD. Past Drug Use History: None Reported - Past Family History Father Family Medical History: Cancer Additional Family Medical History / Comment(s): bone cancer. Mother Additional Family Medical History / Comment(s): when pt was born. Daughter(s) Family Medical History: Cancer Physical Examination Vital Signs Temp Pulse Pulse Resp BP Pulse Ox 04/23/19 16:00 98.0 F 85 20 147/85 94 L 04/23/19 11:14 98.1 F 64 20 137/72 97 04/23/19 08:03 80 16 04/23/19 08:00 98.0 F 81 20 134/61 96 04/23/19 07:53 75 16 94 L 04/23/19 04:00 98.0 F 90 18 146/76 95 04/22/19 23:37 97.9 F 65 17 149/85 93 L 04/22/19 19:46 98.0 F 71 18 183/84 98 04/22/19 19:21 89 L 04/22/19 18:33 129/88 Intake and Output 04/23/19 04/23/19 04/23/19 06:59 14:59 22:59 Intake Total 77.411 615.655 Balance 77.411 615.655 Intake: Intake, IV Titration 77.411 135.655 Amount Heparin Sod,Pork in 0.45% 77.411 135.655 NaCl 25,000 unit In 0.45 % NaCl 1 250ml.bag @ 8.6 UNITS/KG/HR 10.002 mls/hr IV .Q24H [facility] Rx#: [id number] Oral 480 Other: Voiding Method Toilet Toilet Diaper # Voids 2 1 # Bowel Movements 2 Weight 113.3 kg Results 04/23/19 05:41 04/23/19 05:41 Coagulation 04/22/19 04/23/19 04/23/19 Range/Units 22:00 05:41 16:57 PT 13.0 H (9.0-12.0) sec APTT 57.6 H 44.7 H 80.5 H (22.0-30.0) sec CBC 04/23/19 Range/Units 05:41 WBC 6.5 (3.8-10.6) k/uL RBC 3.86 L (4.30-5.90) m/uL Hgb 11.3 L (13.0-17.5) gm/dL Hct 35.5 L (39.0-53.0) % Plt Count 268 (150-450) k/uL Comprehensive Metabolic Panel 04/23/19 Range/Units 05:41 Sodium 142 (137-145) mmol/L Potassium 3.8 (3.5-5.1) mmol/L Chloride 113 H (98-107) mmol/L Carbon Dioxide 22 (22-30) mmol/L BUN 17 (9-20) mg/dL Creatinine 1.19 (0.66-1.25) mg/dL Glucose 141 H (74-99) mg/dL Calcium 8.5 (8.4-10.2) mg/dL Current Medications Generic Name Dose Route Start Last Admin Trade Name Freq PRN Reason Stop Dose Admin Acetaminophen 650 mg 04/21/19 11:59 04/22/19 18:34 Tylenol Tab PO 650 mg Q6HR PRN Administration Mild Pain or Fever > 100.5 Albuterol Sulfate 2.5 mg 04/22/19 08:00 04/23/19 07:53 Ventolin Nebulized INHALATION 2.5 mg RT-DAILY [facility] Administration Alprazolam 0.25 mg 04/21/19 15:33 Xanax PO TID PRN Anxiety Amiodarone HCl 400 mg 04/22/19 09:30 04/23/19 08:22 Cordarone PO 400 mg BID [facility] Administration Aspirin 81 mg 04/22/19 09:00 04/23/19 08:22 Aspirin PO 81 mg DAILY [facility] Administration Atorvastatin Calcium 80 mg 04/22/19 09:00 04/23/19 08:22 Lipitor PO 80 mg QAM [facility] Administration Furosemide 20 mg 04/23/19 11:15 04/23/19 11:24 Lasix PO 20 mg DAILY [facility] Administration Heparin Sodium (Porcine) 0 unit 04/21/19 11:42 04/21/19 18:21 Heparin IV 2,900 unit PER PROTOCOL PRN Administration Low PTT Protocol Heparin Sodium/Sodium Chloride 250 mls @ 10.002 mls/hr 04/21/19 11:45 04/23/19 11:15 25,000 unit/ Sodium Chloride IV 11.6 units/kg/hr .Q24H [facility] 13.491 mls/hr Titration Protocol 8.6 UNITS/KG/HR Ceftriaxone Sodium 1 gm/ 50 mls @ 100 mls/hr 04/21/19 16:00 04/23/19 08:22 Sodium Chloride IVPB 100 mls/hr Q24HR [facility] Administration Sodium Chloride 1,000 mls @ 75 mls/hr 04/22/19 09:30 04/23/19 06:34 Saline 0.9% IV 75 mls/hr .[id number] [facility] Administration Sodium Chloride 1,000 mls @ 50 mls/hr 04/24/19 12:00 Saline 0.9% IV .Q20H [facility] Sodium Chloride 1,000 mls @ 50 mls/hr 04/24/19 12:00 Saline 0.9% IV .Q20H [facility] Cefazolin Sodium 2 gm/ Sodium 50 mls @ 100 mls/hr 04/24/19 16:00 Chloride IVPB 04/24/19 16:29 ONCE ONE Cefazolin Sodium 1,000 mg/ 250 mls @ 500 mls/hr 04/24/19 16:00 Sodium Chloride IRRIGATION 04/24/19 16:29 ONCE ONE Insulin Aspart 0 unit 04/21/19 17:30 04/23/19 17:26 Novolog SQ 2 unit ACHS [facility] Administration Protocol Lisinopril 20 mg 04/22/19 09:00 04/23/19 08:22 Zestril PO 20 mg DAILY [facility] Administration Loperamide HCl 2 mg 04/23/19 12:53 04/23/19 14:45 Imodium PO 2 mg QID PRN Administration Diarrhea Metformin HCl 500 mg 04/24/19 21:00 Glucophage PO BID [facility] Metoprolol Tartrate 50 mg 04/21/19 21:00 04/23/19 08:22 Lopressor PO 50 mg BID [facility] Administration Morphine Sulfate 4 mg 04/21/19 11:59 Morphine Sulfate (Inj) IV Q4HR PRN Severe Pain Multivitamins 1 each 04/22/19 12:00 04/23/19 11:24 Theragran PO 1 each DAILY@1200 [facility] Administration Naloxone HCl 0.2 mg 04/21/19 11:59 Narcan IV Q2M PRN Opioid Reversal Pantoprazole Sodium 40 mg 04/22/19 07:30 04/23/19 06:33 Protonix PO 40 mg AC-BRKFST [facility] Administration Potassium Chloride 20 meq 04/23/19 09:00 04/23/19 09:54 K-Dur 20 PO 20 meq DAILY [facility] Administration Primidone 250 mg 04/21/19 21:00 04/22/19 20:36 Mysoline PO 250 mg HS [facility] Administration Primidone 25 mg 04/21/19 17:30 04/23/19 17:26 Mysoline PO 25 mg AC-SUPPER [facility] Administration Primidone 50 mg 04/22/19 11:00 04/23/19 11:25 Mysoline PO 50 mg DAILY@1100 [facility] Administration Pyridostigmine [place] 60 mg 04/21/19 16:00 04/23/19 17:26 Mestinon PO 60 mg Q4HR [facility] Administration Spironolactone 25 mg 04/22/19 12:30 04/23/19 08:22 Aldactone PO 25 mg DAILY [facility] Administration Tamsulosin HCl 0.4 mg 04/22/19 09:00 04/23/19 08:34 Flomax PO Not Given DAILY [facility] Warfarin Sodium 2.5 mg 04/23/19 18:00 Coumadin PO DAILY@1800 [facility] Protocol Intake and Output 04/23/19 04/23/19 04/23/19 06:59 14:59 22:59 Intake Total 77.411 615.655 Balance 77.411 615.655 Intake: Intake, IV Titration 77.411 135.655 Amount Heparin Sod,Pork in 0.45% 77.411 135.655 NaCl 25,000 unit In 0.45 % NaCl 1 250ml.bag @ 8.6 UNITS/KG/HR 10.002 mls/hr IV .Q24H [facility] Rx#: [id number] Oral 480 Other: Voiding Method Toilet Toilet Diaper # Voids 2 1 # Bowel Movements 2 Weight 113.3 kg 04/23/19 05:41 04/23/19 05:41 <Thaddeus Black - Last Filed: 04/24/19 19:34> History of Present Illness 78 male patient presenting with sustained ventricular tachycardia Ischemic cardio myopathy, 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 Known coronary artery disease but no new progression of coronary artery disease no coronary stenting performed Persistent atrial fibrillation rate controlled Suggest single chamber ICD implantation for secondary prevention of sudden cardiac Physical Exam Vitals: Vital Signs Temp Pulse Pulse Resp BP Pulse Ox 04/24/19 16:40 98.3 F 74 20 166/87 98 04/24/19 16:18 97 04/24/19 16:00 74 20 04/24/19 15:42 98.3 F 74 20 166/87 98 04/24/19 11:28 98.5 F 80 20 126/60 96 04/24/19 08:33 88 04/24/19 08:22 86 95 04/24/19 08:00 69 20 04/24/19 07:43 97.8 F 69 20 123/58 93 L 04/24/19 03:13 97.9 F 78 16 126/77 92 L 04/23/19 23:12 98.2 F 71 16 131/78 97 04/23/19 19:54 98.3 F 73 16 129/83 95 04/23/19 19:45 16 Intake and Output 04/24/19 04/24/19 04/24/19 06:59 14:59 22:59 Intake Total 620 50 Balance 620 50 Intake: IV 50 Intake, IV Titration 260 Amount Sodium Chloride 0.9% 1, 160 000 ml @ 50 mls/hr IV . Q20H [facility] Rx#:[id number] ceFAZolin 2 gm In Sodium 100 Chloride 0.9% 50 ml @ 100 mls/hr IVPB ONCE ONE Rx# :[id number] Oral 360 Other: Voiding Method Toilet Toilet Toilet Diaper Diaper Diaper # Voids 1 Weight 114 kg Physical Examination Vital Signs Temp Pulse Pulse Resp BP Pulse Ox 04/24/19 16:40 98.3 F 74 20 166/87 98 04/24/19 16:18 97 04/24/19 16:00 74 20 04/24/19 15:42 98.3 F 74 20 166/87 98 04/24/19 11:28 98.5 F 80 20 126/60 96 04/24/19 08:33 88 04/24/19 08:22 86 95 04/24/19 08:00 69 20 04/24/19 07:43 97.8 F 69 20 123/58 93 L 04/24/19 03:13 97.9 F 78 16 126/77 92 L 04/23/19 23:12 98.2 F 71 16 131/78 97 04/23/19 19:54 98.3 F 73 16 129/83 95 04/23/19 19:45 16 Intake and Output 04/24/19 04/24/19 04/24/19 06:59 14:59 22:59 Intake Total 620 50 Balance 620 50 Intake: IV 50 Intake, IV Titration 260 Amount Sodium Chloride 0.9% 1, 160 000 ml @ 50 mls/hr IV . Q20H [facility] Rx#:[id number] ceFAZolin 2 gm In Sodium 100 Chloride 0.9% 50 ml @ 100 mls/hr IVPB ONCE ONE Rx# :[id number] Oral 360 Other: Voiding Method Toilet Toilet Toilet Diaper Diaper Diaper # Voids 1 Weight 114 kg Results 04/24/19 05:45 04/24/19 05:45 Coagulation 04/24/19 04/24/19 Range/Units 00:22 05:45 PT 12.4 H (9.0-12.0) sec APTT 68.8 H 50.2 H (22.0-30.0) sec CBC 04/24/19 Range/Units 05:45 WBC 7.0 (3.8-10.6) k/uL RBC 3.95 L (4.30-5.90) m/uL Hgb 11.5 L (13.0-17.5) gm/dL Hct 37.0 L (39.0-53.0) % Plt Count 240 (150-450) k/uL Comprehensive Metabolic Panel 04/24/19 Range/Units 05:45 Sodium 142 (137-145) mmol/L Potassium 4.5 (3.5-5.1) mmol/L Chloride 115 H (98-107) mmol/L Carbon Dioxide 18 L (22-30) mmol/L BUN 21 H (9-20) mg/dL Creatinine 1.43 H (0.66-1.25) mg/dL Glucose 129 H (74-99) mg/dL Calcium 8.7 (8.4-10.2) mg/dL Current Medications Generic Name Dose Route Start Last Admin Trade Name Freq PRN Reason Stop Dose Admin Acetaminophen 650 mg 04/21/19 11:59 04/22/19 18:34 Tylenol Tab PO 650 mg Q6HR PRN Administration Mild Pain or Fever > 100.5 Albuterol Sulfate 2.5 mg 04/22/19 08:00 04/24/19 08:19 Ventolin Nebulized INHALATION 2.5 mg RT-DAILY [facility] Administration Alprazolam 0.25 mg 04/21/19 15:33 Xanax PO TID PRN Anxiety Amiodarone HCl 400 mg 04/22/19 09:30 04/24/19 08:01 Cordarone PO 400 mg BID [facility] Administration Aspirin 81 mg 04/22/19 09:00 04/24/19 08:01 Aspirin PO 81 mg DAILY [facility] Administration Atorvastatin Calcium 80 mg 04/22/19 09:00 04/24/19 08:01 Lipitor PO 80 mg QAM [facility] Administration Furosemide 20 mg 04/23/19 11:15 04/24/19 08:01 Lasix PO 20 mg DAILY [facility] Administration Ceftriaxone Sodium 1 gm/ 50 mls @ 100 mls/hr 04/21/19 16:00 04/24/19 08:02 Sodium Chloride IVPB 100 mls/hr Q24HR [facility] Administration Sodium Chloride 1,000 mls @ 50 mls/hr 04/24/19 12:00 04/24/19 12:03 Saline 0.9% IV 50 mls/hr .Q20H [facility] Administration Insulin Aspart 0 unit 04/21/19 17:30 04/24/19 17:14 Novolog SQ Not Given ACHS [facility] Protocol Lisinopril 20 mg 04/22/19 09:00 04/24/19 08:01 Zestril PO 20 mg DAILY [facility] Administration Loperamide HCl 2 mg 04/23/19 12:53 04/24/19 06:06 Imodium PO 2 mg QID PRN Administration Diarrhea Metformin HCl 500 mg 04/24/19 21:00 Glucophage PO BID [facility] Metoprolol Tartrate 50 mg 04/21/19 21:00 04/24/19 08:01 Lopressor PO 50 mg BID [facility] Administration Morphine Sulfate 4 mg 04/21/19 11:59 Morphine Sulfate (Inj) IV Q4HR PRN Severe Pain Multivitamins 1 each 04/22/19 12:00 04/24/19 11:39 Theragran PO 1 each DAILY@1200 [facility] Administration Naloxone HCl 0.2 mg 04/21/19 11:59 Narcan IV Q2M PRN Opioid Reversal Pantoprazole Sodium 40 mg 04/22/19 07:30 04/24/19 06:04 Protonix PO 40 mg AC-BRKFST [facility] Administration Potassium Chloride 20 meq 04/23/19 09:00 04/24/19 08:01 K-Dur 20 PO 20 meq DAILY [facility] Administration Primidone 250 mg 04/21/19 21:00 04/23/19 20:30 Mysoline PO 250 mg HS [facility] Administration Primidone 25 mg 04/21/19 17:30 04/24/19 16:35 Mysoline PO 25 mg AC-SUPPER [facility] Administration Primidone 50 mg 04/22/19 11:00 04/24/19 11:39 Mysoline PO 50 mg DAILY@1100 [facility] Administration Pyridostigmine [place] 60 mg 04/21/19 16:00 04/24/19 16:35 Mestinon PO 60 mg Q4HR [facility] Administration Spironolactone 25 mg 04/22/19 12:30 04/24/19 08:01 Aldactone PO 25 mg DAILY [facility] Administration Tamsulosin HCl 0.4 mg 04/22/19 09:00 04/24/19 08:06 Flomax PO Not Given DAILY [facility] Warfarin Sodium 2.5 mg 04/23/19 18:00 04/23/19 18:22 Coumadin PO 2.5 mg DAILY@1800 [facility] Administration Protocol Intake and Output 04/24/19 04/24/1904/24/20 06:59 14:59 22:59 Intake Total 620 50 Balance 620 50 Intake: IV 50 Intake, IV Titration 260 Amount Sodium Chloride 0.9% 1, 160 000 ml @ 50 mls/hr IV . Q20H [facility] Rx#:[id number] ceFAZolin 2 gm In Sodium 100 Chloride 0.9% 50 ml @ 100 mls/hr IVPB ONCE ONE Rx# :[id number] Oral 360 Other: Voiding Method Toilet Toilet Toilet Diaper Diaper Diaper # Voids 1 Weight 114 kg 04/24/19 05:45 04/24/19 05:45
[2019-04-23] MEDS: WARFARIN 2.5 MG TAB PO SCH (18:22)
--- NOTE | 2019-04-23 18:28 | PN ---
PROGRESS NOTE DATE OF SERVICE: 04/23/2019 This 78-year-old gentleman who was admitted with possible acute ubc-[id number]-tmzzymo- elevation myocardial infarction. Also, had wide-complex QRS tachycardia also. Ejection fraction found to be 20-25%. Cardiology following the patient for possible evaluation for AICD. No chest pain. No palpitations. No fever. EXAM: On exam, alert and oriented x3. Pulse is 64, blood pressure 137/72, respirations 20, temperature 98.1, pulse ox 97% on room air. HEENT: Conjunctivae normal. Oral mucosa moist. NECK: No jugular venous distention. No lymph node enlargement. CARDIOVASCULAR: S1, S2. RESPIRATORY: Diminished breath sounds at the bases. Scattered rhonchi and crackles. ABDOMEN: Soft, nontender. LEGS: No edema, no swelling. NERVOUS SYSTEM: No focal deficits. LABS: WBC 6.2, hemoglobin 11.2, INR 1.3 and glucose 141 and 152. ASSESSMENT: 1. Wide-complex QRS tachycardia, possible ventricular tachycardia, status post DC cardioversion. 2. Atrial fibrillation. 3. Chest pain, possible acute yap-FM-amjczva-elevation myocardial infarction status post cardiac catheterization and completely occluded distal circumflex artery, thought to be chronic in nature. 4. Patent stent in the left anterior descending. 5. Coumadin monitoring. 6. History of cerebrovascular accident, transient ischemic attack. 7. History of diabetes mellitus type 2. 8. History of hearing difficulty, deafness. 9. Hypertension. 10.Hyperlipidemia. 11.History of memory impairment. 12.History of degenerative joint disease. 13.History of prostate disorder. 14.History of cardiac arrest 2008. 15.History of myasthenia gravis. 16.Iron deficiency anemia. 17.History of hiatal hernia. 18.History of appendectomy. 19.History of coronary artery disease, stent. 20.History of hemorrhoidectomy. 21.History of nicotine dependence. 22.Obesity with body mass index of 40.2. 23.FULL CODE. RECOMMENDATIONS AND DISCUSSION: In this 78-year-old gentleman who presented with multiple complex medical issues, we will monitor the patient, continue the current management, continue symptomatic treatment, continue with IV heparin at this time. Continue with amiodarone. Closely follow with Cardiology. Monitor electrolytes closely. Await determination regarding AICD. Further recommendations to follow. MMODL / IJN: [id number] /
[2019-04-23 20:28] LABS: Glucose,Whole Blood 168 mg/dL (75-99)
[2019-04-24] MEDS: PYRIDOSTIGMINE 60 MG TAB PO SCH ×7 (03:21→22:55)
[2019-04-24 06:03] LABS: Glucose,Whole Blood 143 mg/dL (75-99)
[2019-04-24] MEDS: INSULIN ASPART (NovoLOG) 100 UNIT/ML VIAL SQ SCH ×4 (06:03→20:58)
[2019-04-24] MEDS: PANTOPRAZOLE 40 MG TABLET PO SCH (06:04)
[2019-04-24] MEDS: LOPERAMIDE 2 MG CAP PO PRN (06:06)
[2019-04-24 07:07] LABS: Basophils # (A) 0.1 k/uL (0-0.2); Basophils % (A) 1 %; Eosinophils # (A) 0.2 k/uL (0-0.7); Eosinophils % (A) 2 %; HGB 11.5 gm/dL (13.0-17.5); Hypochromasia Moderate; Lymphocytes # (A) 0.8 k/uL (1.0-4.8); Lymphocytes % (A) 12 %; MCH 29.2 pg (25.0-35.0); MCHC 31.2 g/dL (31.0-37.0); MCV 93.7 fL (80.0-100.0); Mean Platelet Volume 8.9; Monocytes # (A) 0.5 k/uL (0-1.0); Monocytes % (A) 8 %; Neutrophils # (A) 5.2 k/uL (1.3-7.7); Neutrophils % (A) 75 %; Platelet Count 240 k/uL (150-450); RBC 3.95 m/uL (4.30-5.90); RDW 14.6 % (11.5-15.5)
[2019-04-24 07:18] LABS: Calcium 8.7 mg/dL (8.4-10.2); Potassium 4.5 mmol/L (3.5-5.1)
[2019-04-24 07:31] LABS: INR 1.2 (<1.2); Partial Thromboplastin Time 50.2 sec (22.0-30.0); Prothrombin Time 12.4 sec (9.0-12.0)
[2019-04-24] MEDS: LISINOPRIL 20 MG TAB PO SCH (08:01)
[2019-04-24] MEDS: POTASSIUM CHLORIDE ER 20 MEQ TAB.ER PO SCH (08:01)
[2019-04-24] MEDS: FUROSEMIDE 20 MG TAB PO SCH (08:01)
[2019-04-24] MEDS: METOPROLOL TARTRATE 50 MG TAB PO SCH (08:01)
[2019-04-24] MEDS: ASPIRIN 81 MG PO SCH (08:01)
[2019-04-24] MEDS: ATORVASTATIN 80 MG TAB PO SCH (08:01)
[2019-04-24] MEDS: SPIRONOLACTONE 25 MG TAB PO SCH (08:01)
[2019-04-24] MEDS: AMIODARONE 200 MG TAB PO SCH ×2 (08:01→20:06)
[2019-04-24] MEDS: TAMSULOSIN 0.4 MG CAP.ER.24H PO SCH (08:06)
[2019-04-24] MEDS: ALBUTEROL NEBULIZED 2.5 MG/3 ML INHALATION SCH (08:19)
[2019-04-24] MEDS: PRIMIDONE 50 MG TAB PO SCH ×3 (11:39→20:06)
[2019-04-24] MEDS: MULTIVITAMINS, THERA 1 EACH TAB PO SCH (11:39)
--- NOTE | 2019-04-24 11:42 | PN ---
PROGRESS NOTE Mr. Eagle is a gentleman with ischemic cardiomyopathy who came in with wide QRS tachycardia, underwent electrical cardioversion. Cardiac cath revealed old chronic occlusion of mid circumflex and previous inferior IA. Ejection fraction is in the 25% range. He is going to have an ICD today. He is doing well. No recurrence of any ventricular arrhythmias. He remains in atrial fibrillation which is his underlying rhythm. S1-S2 heard normally, irregular rhythm noted, short systolic murmur at the base is audible. Lungs reveal improved air entry. Abdomen and lower extremity exam unchanged. Plan is to have ICD today. MMODL / IJN: [id number] /
[2019-04-24 11:45] LABS: Glucose,Whole Blood 139 mg/dL (75-99)
[2019-04-24] MEDS ORDERED: SODIUM CHLORIDE 0.9% 1,000 ML IV SCH ×2 (12:00)
[2019-04-24] MEDS ORDERED: ceFAZolin 1,000 MG in SODIUM CHLORIDE 0.9% IRRIGATIO 250 ML IRRIGATION ONE (16:00)
[2019-04-24 16:50] LABS: Glucose,Whole Blood 132 mg/dL (75-99)
[2019-04-24] MEDS ORDERED: HEPARIN SODIUM 1,000 UN/ML (10ML VL) ONE (17:12)
--- NOTE | 2019-04-24 17:17 | P.PN ---
Subjective Progress Note Date: 04/24/19 78-year-old male history of atrial fibrillation, CAD presents with bilateral upper arm pain, diaphoresis, lightheadedness. Patient is currently on Coumadin with history of atrial fibrillation. He is uncertain if he took his morning medications which include metoprolol. He denies central chest pain or symptoms began approximately 30 minutes prior to arrival. He's had some cough and mild dyspnea which is been ongoing for approximately one year. No fever. No other recent illness, no vomiting or diarrhea. 04/24/2019 Patient is seen and evaluated in room at bedside; patient denies any chest pain or shortness of breath; he is status post electrical cardioversion and is sc heduled for ICD placement today; patient had cardiac catheterization showing chronic occlusion of mid circumflex and previous inferior ND with EF of 25%; patient's hasn't had any recurrence of ventricular arrhythmia; remains in atrial fibrillation with controlled ventricular response Scheduled for AICD placement today Objective - Vital Signs Vital signs: Vital Signs Temp 97.8 F 04/24/19 07:43 Pulse 88 04/24/19 08:33 Resp 20 04/24/19 08:00 BP 123/58 04/24/19 07:43 Pulse Ox 95 04/24/19 08:22 Intake & Output 04/23/19 04/24/19 04/24/19 18:59 06:59 18:59 Intake Total 1067.169 360 Balance 1067.169 360 Weight 114 kg Intake: Intake, IV Titration 227.169 Amount Heparin Sod,Pork in 0.45% 227.169 NaCl 25,000 unit In 0.45 % NaCl 1 250ml.bag @ 8.6 UNITS/KG/HR 10.002 mls/hr IV .Q24H [facility] Rx#: [id number] Oral 840 360 Other: Voiding Method Toilet Toilet Toilet Diaper Diaper Diaper # Voids 1 1 # Bowel Movements 1 - Exam PHYSICAL EXAMINATION: GENERAL: The patient is alert and oriented x3, not in any acute distress. Well developed, well nourished. HEENT: Pupils are round and equally reacting to light. EOMI. No scleral icterus. No conjunctival pallor. Normocephalic, atraumatic. No pharyngeal erythema. No thyromegaly. CARDIOVASCULAR: S1 and S2 present. No murmurs, rubs, or gallops. PULMONARY: Chest is clear to auscultation, no wheezing or crackles. ABDOMEN: Soft, nontender, nondistended, normoactive bowel sounds. No palpable organomegaly. MUSCULOSKELETAL: No joint swelling or deformity. EXTREMITIES: No cyanosis, clubbing, or pedal edema. NEUROLOGICAL: Gross neurological examination did not reveal any focal deficits. SKIN: No rashes. - Labs CBC & Chem 7: 04/24/19 05:45 04/24/19 05:45 Labs: Abnormal Lab Results - Last 24 Hours (Table) 04/23/19 04/23/19 04/23/19 Range/Units 11:39 16:43 16:57 RBC (4.30-5.90) m/uL Hgb (13.0-17.5) gm/dL Hct (39.0-53.0) % Lymphocytes # (1.0-4.8) k/uL PT (9.0-12.0) sec INR (<1.2) APTT 80.5 H (22.0-30.0) sec Chloride (98-107) mmol/L Carbon Dioxide (22-30) mmol/L BUN (9-20) mg/dL Creatinine (0.66-1.25) mg/dL Glucose (74-99) mg/dL POC Glucose (mg/dL) 157 H 175 H (75-99) mg/dL 04/23/19 04/24/19 04/24/19 Range/Units 20:26 00:22 05:45 RBC 3.95 L (4.30-5.90) m/uL Hgb 11.5 L (13.0-17.5) gm/dL Hct 37.0 L (39.0-53.0) % Lymphocytes # 0.8 L (1.0-4.8) k/uL PT (9.0-12.0) sec INR (<1.2) APTT 68.8 H (22.0-30.0) sec Chloride (98-107) mmol/L Carbon Dioxide (22-30) mmol/L BUN (9-20) mg/dL Creatinine (0.66-1.25) mg/dL Glucose (74-99) mg/dL POC Glucose (mg/dL) 168 H (75-99) mg/dL 04/24/19 04/24/19 04/24/19 Range/Units 05:45 05:45 05:59 RBC (4.30-5.90) m/uL Hgb (13.0-17.5) gm/dL Hct (39.0-53.0) % Lymphocytes # (1.0-4.8) k/uL PT 12.4 H (9.0-12.0) sec INR 1.2 H (<1.2) APTT 50.2 H (22.0-30.0) sec Chloride 115 H (98-107) mmol/L Carbon Dioxide 18 L (22-30) mmol/L BUN 21 H (9-20) mg/dL Creatinine 1.43 H (0.66-1.25) mg/dL Glucose 129 H (74-99) mg/dL POC Glucose (mg/dL) 143 H (75-99) mg/dL Assessment and Plan Assessment: 1. Symptomatic wide complex tachycardia with an atypical left bundle branch block morphology and QS pattern in inferior leads, consistent with ventricular tachycardia, requiring electrical cardioversion 2. CAD status post stenting, recent coronary angiogram showing no progression of coronary artery disease 3. Ischemic cardiomyopathy, recent echocardiogram showing EF 20-25% 4. Persistent atrial fibrillation, rate controlled, Coumadin was on hold for cath 5. Hypertension 6. Dyslipidemia 7. Diabetes Patient is scheduled to proceed with single chamber ICD implantation; patient is a failure of the risks and benefits of the planned procedure and he is agreeable to proceed; cardiology recommending 2-D started on Coumadin 2.5 mg daily after procedure and to discontinue heparin once INR is therapeutic; patient remains on amiodarone with plan to reduce the dose gradually after a month; maximize medical therapy DVT prophylaxis; systemic anticoagulation with heparin CODE STATUS; full code
[2019-04-24] MEDS ORDERED: MIDAZOLAM 2 MG/2 ML VIAL ONE (17:47)
[2019-04-24] MEDS ORDERED: IV FLUID CONTINUATION 1,000 ML IV ONE (17:47)
[2019-04-24] MEDS ORDERED: fentaNYL (PF) 50 MCG/ML 2 ML AMP ONE (17:47)
[2019-04-24] MEDS ORDERED: WARFARIN 2.5 MG TAB PO SCH (18:00)
[2019-04-24] MEDS ORDERED: IOPAMIDOL-370 50ML BTL INJ ONE (18:06)
[2019-04-24] MEDS ORDERED: LIDOCAINE 1% INJ 10MG/ML (20 ML MDV) ONE ×2 (18:09)
[2019-04-24] MEDS ORDERED: LIDOCAINE 1% INJ 10MG/ML (20 ML MDV) SQ ONE (18:27)
[2019-04-24] MEDS ORDERED: HYDROcodone/APAP 5-325MG 1 EACH TAB PO PRN (19:34)
[2019-04-24] MEDS ORDERED: ACETAMINOPHEN TAB 325 MG TAB PO PRN (19:34)
[2019-04-24] MEDS: WARFARIN 2.5 MG TAB PO SCH (20:06)
[2019-04-24 20:51] LABS: Glucose,Whole Blood 148 mg/dL (75-99)
[2019-04-24] MEDS ORDERED: CARVEDILOL 6.25 MG TAB PO STA (20:56)
[2019-04-24] MEDS: SODIUM CHLORIDE 0.9% 1,000 ML IV SCH ×2 (20:58→21:09)
[2019-04-24] MEDS ORDERED: ACETAMINOPHEN IV (For NPO) 1,000 MG in EMPTY BAG 1 BAG IVPB ONE (21:00)
[2019-04-24] MEDS ORDERED: metFORMIN 500 MG TAB PO SCH (21:00)
[2019-04-24] MEDS: HEPARIN SOD,PORK IN 0.45% NACL 25,000 UNIT in 0.45% NACL 1 250ML.BAG IV SCH (21:09)
[2019-04-25] MEDS: LOPERAMIDE 2 MG CAP PO PRN ×2 (01:25→17:07)
[2019-04-25] MEDS: PYRIDOSTIGMINE 60 MG TAB PO SCH ×6 (03:07→23:53)
[2019-04-25 06:07] LABS: Basophils % (A) 0 %; Eosinophils # (A) 0.2 k/uL (0-0.7); Eosinophils % (A) 3 %; HCT 34.9 % (39.0-53.0); HGB 10.8 gm/dL (13.0-17.5); Hypochromasia Moderate; Lymphocytes # (A) 0.9 k/uL (1.0-4.8); Lymphocytes % (A) 13 %; MCH 28.9 pg (25.0-35.0); MCV 93.5 fL (80.0-100.0); Mean Platelet Volume 8.6; Monocytes # (A) 0.5 k/uL (0-1.0); Monocytes % (A) 8 %; Neutrophils # (A) 4.8 k/uL (1.3-7.7); Neutrophils % (A) 74 %; Platelet Count 253 k/uL (150-450); RBC 3.73 m/uL (4.30-5.90); RDW 14.4 % (11.5-15.5); WBC 6.4 k/uL (3.8-10.6)
[2019-04-25 06:19] LABS: Glucose,Whole Blood 143 mg/dL (75-99)
[2019-04-25] MEDS: metFORMIN 500 MG TAB PO SCH ×2 (06:23→17:07)
[2019-04-25] MEDS: INSULIN ASPART (NovoLOG) 100 UNIT/ML VIAL SQ SCH ×4 (06:23→21:02)
[2019-04-25] MEDS: CARVEDILOL 6.25 MG TAB PO SCH ×2 (06:23→17:08)
[2019-04-25] MEDS: PANTOPRAZOLE 40 MG TABLET PO SCH (06:25)
[2019-04-25 06:27] LABS: Calcium 8.5 mg/dL (8.4-10.2); Potassium 4.1 mmol/L (3.5-5.1)
--- NOTE | 2019-04-25 06:38 | XR ---
EXAMINATION TYPE: XR chest 2V DATE OF EXAM: 04/25/2019 HISTORY: Lead placement check. REFERENCE: Previous study dated 04/21/2019. FINDINGS: A unipolar pacemaker has been inserted via a left subclavian approach. Its tip overlies the right ventricle. The heart is enlarged. There is mild pulmonary vascular congestion without mahnaz edema. There is atel ectasis at both lung bases. This has improved. There are small, bilateral effusions. IMPRESSION: SATISFACTORY PACING LEAD PLACEMENT.
[2019-04-25 09:03] LABS: INR 1.2 (<1.2); Prothrombin Time 12.2 sec (9.0-12.0)
[2019-04-25] MEDS: ALBUTEROL NEBULIZED 2.5 MG/3 ML INHALATION SCH (09:04)
[2019-04-25] MEDS ORDERED: WARFARIN 5 MG TAB PO ONE (09:15)
[2019-04-25] MEDS: TAMSULOSIN 0.4 MG CAP.ER.24H PO SCH (09:36)
[2019-04-25] MEDS: ASPIRIN 81 MG PO SCH (09:37)
[2019-04-25] MEDS: AMIODARONE 200 MG TAB PO SCH ×2 (09:37→21:01)
[2019-04-25] MEDS: FUROSEMIDE 20 MG TAB PO SCH (09:37)
[2019-04-25] MEDS: POTASSIUM CHLORIDE ER 20 MEQ TAB.ER PO SCH (09:37)
[2019-04-25] MEDS: SPIRONOLACTONE 25 MG TAB PO SCH (09:37)
[2019-04-25] MEDS: LISINOPRIL 20 MG TAB PO SCH (09:37)
[2019-04-25] MEDS: ATORVASTATIN 80 MG TAB PO SCH (09:37)
[2019-04-25 12:01] LABS: Glucose,Whole Blood 159 mg/dL (75-99)
[2019-04-25] MEDS: PRIMIDONE 50 MG TAB PO SCH ×3 (12:01→21:02)
[2019-04-25] MEDS: MULTIVITAMINS, THERA 1 EACH TAB PO SCH (12:01)
--- NOTE | 2019-04-25 12:56 | PN ---
PROGRESS NOTE Mr. Eagle is a 78-year-old gentleman with wide QRS tachycardia, status post ICD. This morning he is doing well. Vitals are stable. No JVD. S1, S2 heard normally. Systolic murmur at the base is audible. Lungs are clearer. Abdomen and lower extremity exam unchanged. The ICD site is clean and dry with a good pulse. Chest x-ray is good. Laboratory data are acceptable and device has been interrogated, functioning well. Patient will be discharged tomorrow. I will give him 5 mg of Coumadin today. MMODL / IJN: [id number] /
--- NOTE | 2019-04-25 13:10 | P.PCN ---
Preoperative Diagnosis: Left upper extremity venogram 15 cc of IV dye was injected in the left upper extremity did patent left subclavian, left axillary and innominate veins Plan Proceed with surgical chamber ICD implant No acute competitions
--- NOTE | 2019-04-25 14:56 | PCN ---
PROCEDURE NOTE Mr. Eagle is a 78-year-old male patient who presented to the hospital with sustained monomorphic ventricular tachycardia, symptomatic. He has known ischemic cardiomyopathy, class II-III heart failure symptoms, underlying permanent atrial fibrillation, and appropriately anticoagulated. Coronary angiography was performed and medical management was recommended. There was no progression of coronary artery disease and no percutaneous interventions were performed. He was brought in for single-chamber ICD implantation for secondary prevention of sudden cardiac after experiencing sustained monomorphic ventricular tachycardia. He was initially on IV amiodarone, now is on p.o. amiodarone and on beta blockers as well as cardiomyopathy medications. The patient was brought to the EP lab in a fasting state. Written informed consent was obtained prior to the procedure. The left shoulder area was prepped and draped as per protocol. One percent lidocaine was used for local anesthesia. A 4-cm incision was made parallel to the deltopectoral groove, about 1.5 cm medial to it. The incision was carried down to the level of the pectoralis muscle. A subfascial pocket was made. Hemostasis was assured. The left axillary vein was accessed at a single point, and via an appropriately sized introducer sheath a single lead was positioned at the RV apex and screwed in. R-waves were 12.3 mV. Pacing impedance 932 ohms. Pacing threshold 0.7 V at 0.5 milliseconds. Ten-volt test was negative. The lead was secured to the underlying pectoralis fascia using 2 nonabsorbable sutures. The pocket was irrigated with antibiotic solution. Lead was connected to the generator (Need model number SIET0B8, serial number [id number]). The lead was connected to the generator and lead details are as follows: This is a single-coil electronic ICD lead, model number 6935M, 62 cm in length, and serial number [id number]. The lead and the generator were placed in the subfascial pocket and the device was secured to the underlying pectoralis muscle. The wound was closed in three layers and dressed per protocol. RESULT: Successful single-chamber ICD implantation for secondary prevention of sudden cardiac . PLAN: IV antibiotics to continue and switch to carvedilol 6.25 mg twice daily. Stop metoprolol. Continue Coumadin for anticoagulation for stroke prevention. Continue cardiomyopathy medications. In terms of amiodarone dose, continue 400 mg twice daily for two weeks and then reduce to 400 mg once daily for one month, and thereafter 200 mg p.o. daily. FURTHER PLAN: After about 6-8 weeks, when the patient is on 200 mg of amiodarone, DFT testing under anesthesia will be performed along with noninvasive programmed stimulation to look for inducibility for ventricular tachycardia. TORSTEN / ALBA: [id number] /
--- NOTE | 2019-04-25 15:11 | P.PN ---
Subjective Progress Note Date: 04/25/19 Principal diagnosis: Wide complex tachycardia 78-year-old male history of atrial fibrillation, CAD presents with bilateral upper arm pain, diaphoresis, lightheadedness. Patient is currently on Coumadin with history of atrial fibrillation. He is uncertain if he took his morning medications which include metoprolol. He denies central chest pain or symptoms began approximately 30 minutes prior to arrival. He's had some cough and mild dyspnea which is been ongoing for approximately one year. No fever. No other recent illness, no vomiting or diarrhea. 04/24/2019 Patient is seen and evaluated in room at bedside; patient denies any chest pain or shortness of breath; he is status post electrical cardioversion and is scheduled for ICD placement today; patient had cardiac catheterization showing chronic occlusion of mid circumflex and previous inferior CA with EF of 25%; patient's hasn't had any recurrence of ventricular arrhythmia; remains in atrial fibrillation with controlled ventricular response Scheduled for AICD placement today 04/25/2019 Patient is seen and evaluated in room at bedside; he is status post ICD placement due to wide complex tachycardia and severe cardiomyopathy; cardiology is following; ICD site is clean and chest x-ray is stable; device has been interrogated and functioning well; patient has been started on Coumadin and plan is for discharge tomorrow morning if remains stable Objective - Vital Signs Vital signs: Vital Signs Temp 98.1 F 04/25/19 11:40 Pulse 80 04/25/19 11:40 Resp 16 04/25/19 11:40 BP 152/84 04/25/19 11:40 Pulse Ox 98 04/25/19 11:40 Intake & Output 04/24/19 04/25/19 04/25/19 18:59 06:59 18:59 Intake Total 970 Output Total 50 Balance 970 -50 Weight 113.6 kg Intake: IV 350 Intake, IV Titration 260 Amount Sodium Chloride 0.9% 1, 160 000 ml @ 50 mls/hr IV . Q20H [facility] Rx#:[id number] ceFAZolin 2 gm In Sodium 100 Chloride 0.9% 50 ml @ 100 mls/hr IVPB ONCE ONE Rx# :[id number] Oral 360 Output: Urine 50 Other: Voiding Method Toilet Toilet Toilet Diaper Diaper Diaper - Exam PHYSICAL EXAMINATION: GENERAL: The patient is alert and oriented x3, not in any acute distress. Well developed, well nourished. HEENT: Pupils are round and equally reacting to light. EOMI. No scleral icterus. No conjunctival pallor. Normocephalic, atraumatic. No pharyngeal erythema. No thyromegaly. CARDIOVASCULAR: S1 and S2 present. No murmurs, rubs, or gallops. PULMONARY: Chest is clear to auscultation, no wheezing or crackles. ABDOMEN: Soft, nontender, nondistended, normoactive bowel sounds. No palpable organomegaly. MUSCULOSKELETAL: No joint swelling or deformity. EXTREMITIES: No cyanosis, clubbing, or pedal edema. NEUROLOGICAL: Gross neurological examination did not reveal any focal deficits. SKIN: No rashes. - Labs CBC & Chem 7: 04/25/19 05:19 04/25/19 05:19 Labs: Abnormal Lab Results - Last 24 Hours (Table) 04/24/19 04/24/19 04/25/19 Range/Units 16:44 20:50 05:19 RBC 3.73 L (4.30-5.90) m/uL Hgb 10.8 L (13.0-17.5) gm/dL Hct 34.9 L (39.0-53.0) % Lymphocytes # 0.9 L (1.0-4.8) k/uL PT (9.0-12.0) sec INR (<1.2) Chloride (98-107) mmol/L Creatinine (0.66-1.25) mg/dL Glucose (74-99) mg/dL POC Glucose (mg/dL) 132 H 148 H (75-99) mg/dL 04/25/19 04/25/19 04/25/19 Range/Units 05:19 05:19 06:18 RBC (4.30-5.90) m/uL Hgb (13.0-17.5) gm/dL Hct (39.0-53.0) % Lymphocytes # (1.0-4.8) k/uL PT 12.2 H (9.0-12.0) sec INR 1.2 H (<1.2) Chloride 113 H (98-107) mmol/L Creatinine 1.32 H (0.66-1.25) mg/dL Glucose 156 H (74-99) mg/dL POC Glucose (mg/dL) 143 H (75-99) mg/dL 04/25/19 Range/Units 11:44 RBC (4.30-5.90) m/uL Hgb (13.0-17.5) gm/dL Hct (39.0-53.0) % Lymphocytes # (1.0-4.8) k/uL PT (9.0-12.0) sec INR (<1.2) Chloride (98-107) mmol/L Creatinine (0.66-1.25) mg/dL Glucose (74-99) mg/dL POC Glucose (mg/dL) 159 H (75-99) mg/dL Assessment and Plan Assessment: 1. Symptomatic wide complex tachycardia with an atypical left bundle branch block morphology and QS pattern in inferior leads, consistent with ventricular tachycardia, requiring electrical cardioversion 2. CAD status post stenting, recent coronary angiogram showing no progression of coronary artery disease 3. Ischemic cardiomyopathy, recent echocardiogram showing EF 20-25% 4. Persistent atrial fibrillation, rate controlled, Coumadin was on hold for cath 5. Hypertension 6. Dyslipidemia 7. Diabetes Patient is scheduled to proceed with single chamber ICD implantation; patient is a failure of the risks and benefits of the planned procedure and he is agreeable to proceed; cardiology recommending 2-D started on Coumadin 2.5 mg daily after procedure and to discontinue heparin once INR is therapeutic; patient remains on amiodarone with plan to reduce the dose gradually after a month; maximize medical therapy DVT prophylaxis; systemic anticoagulation with heparin CODE STATUS; full code
[2019-04-25 17:20] LABS: Glucose,Whole Blood 168 mg/dL (75-99)
--- NOTE | 2019-04-25 20:02 | P.PRLE ---
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 He has known underlying ischemic cardio myopathy and congestive heart failure. He was treated with IV followed by oral amiodarone. Subsequently I implanted a single chamber ICD for secondary prevention of sudden cardiac I will also switched him from metoprolol to carvedilol since his blood pressure is consistently high in the hospital. I will recommend oral amiodarone 400 mg twice daily for 2 weeks post discharge Thereafter, reduce the dose of amiodarone to 400 mg once daily for 4 weeks Then, reduce the dose further to 200 mg daily Once he is on low-dose amiodarone I would recommend noninvasive program stimulation as well as defibrillation testing under anesthesia in the EP lab I will schedule this procedure for him
[2019-04-25 20:26] LABS: Glucose,Whole Blood 175 mg/dL (75-99)
[2019-04-26] MEDS: PYRIDOSTIGMINE 60 MG TAB PO SCH ×4 (03:34→15:25)
[2019-04-26] MEDS: LOPERAMIDE 2 MG CAP PO PRN (03:36)
[2019-04-26 05:59] LABS: Glucose,Whole Blood 121 mg/dL (75-99)
[2019-04-26] MEDS: INSULIN ASPART (NovoLOG) 100 UNIT/ML VIAL SQ SCH ×3 (06:02→15:25)
[2019-04-26 06:08] LABS: Basophils % (A) 1 %; Eosinophils # (A) 0.3 k/uL (0-0.7); Eosinophils % (A) 4 %; HCT 37.4 % (39.0-53.0); HGB 11.2 gm/dL (13.0-17.5); Hypochromasia Moderate; Lymphocytes # (A) 0.6 k/uL (1.0-4.8); Lymphocytes % (A) 9 %; MCH 27.9 pg (25.0-35.0); MCHC 29.8 g/dL (31.0-37.0); MCV 93.5 fL (80.0-100.0); Mean Platelet Volume 8.8; Monocytes # (A) 0.5 k/uL (0-1.0); Monocytes % (A) 8 %; Neutrophils # (A) 4.8 k/uL (1.3-7.7); Neutrophils % (A) 74 %; Platelet Count 279 k/uL (150-450); RDW 14.7 % (11.5-15.5); WBC 6.4 k/uL (3.8-10.6)
[2019-04-26 06:16] LABS: INR 1.4 (<1.2)
[2019-04-26] MEDS: metFORMIN 500 MG TAB PO SCH ×2 (06:18→15:25)
[2019-04-26] MEDS: PANTOPRAZOLE 40 MG TABLET PO SCH (06:18)
[2019-04-26] MEDS: CARVEDILOL 6.25 MG TAB PO SCH (06:18)
[2019-04-26 06:24] LABS: Calcium 8.5 mg/dL (8.4-10.2)
[2019-04-26] MEDS: ALBUTEROL NEBULIZED 2.5 MG/3 ML INHALATION SCH (09:03)
[2019-04-26] MEDS: TAMSULOSIN 0.4 MG CAP.ER.24H PO SCH (09:47)
[2019-04-26] MEDS: SPIRONOLACTONE 25 MG TAB PO SCH (09:51)
[2019-04-26] MEDS: POTASSIUM CHLORIDE ER 20 MEQ TAB.ER PO SCH (09:52)
[2019-04-26] MEDS: ATORVASTATIN 80 MG TAB PO SCH (09:52)
[2019-04-26] MEDS: LISINOPRIL 20 MG TAB PO SCH (09:52)
[2019-04-26] MEDS: FUROSEMIDE 20 MG TAB PO SCH (09:52)
[2019-04-26] MEDS: ASPIRIN 81 MG PO SCH (09:53)
[2019-04-26] MEDS: AMIODARONE 200 MG TAB PO SCH (09:53)
[2019-04-26 11:50] LABS: Glucose,Whole Blood 156 mg/dL (75-99)
[2019-04-26] MEDS: MULTIVITAMINS, THERA 1 EACH TAB PO SCH (12:58)
[2019-04-26] MEDS: PRIMIDONE 50 MG TAB PO SCH ×2 (12:58→15:25)
[2019-04-26 13:01] VITALS: BP 158/90; PULSE 73; RESP 18; TEMP 98
--- NOTE | 2019-04-26 13:23 | P.PN ---
Subjective Progress Note Date: 04/26/19 PROGRESS NOTE: 04/26/2018 Patient examined this a.m. sitting at the bedside in no acute distress. Patient has no current complaints of chest pain, chest pressure, shortness of breath or palpitations. AICD site CDI, no bleeds, no hematoma and bandaged. Patient remains controlled atrial fibrillation, heart rate 75. Anticoagulated with Coumadin. Blood pressure mildly elevated at 148/76, heart rate 75. Afebrile. 97% on room air. Patient currently sitting at the bedside eating breakfast. May use Tylenol for pain at discharge. Okay from cardiology standpoint for discharge. Patient to follow-up with Dr. Jay in one week. INR 1.4. PHYSICAL EXAMINATION: HEENT: Head is atraumatic, normocephalic. Pupils are equal, round. Sclerae anicteric. Conjunctivae are clear. Mucous membranes of the mouth are moist. Neck is supple. There is no jugular venous distention. No carotid bruit is heard. No thyromegaly. LUNGS: Mildly diminished to auscultation no wheezes, rales or rhonchi. No chest wall tenderness is noted on palpation or with deep breathing. HEART: Controlled rate and irregular rhythm without murmurs, rubs or gallops. S1 and S2 heard. ABDOMEN: Abdominal exam revealed normal bowel sounds. The abdomen was soft, non- tender, and without masses, organomegaly, or appreciable enlargement of the abdominal aorta. EXTREMITIES: Examination of the extremities revealed easily palpable radial, femoral and pedal pulses. There was no cyanosis, clubbing or edema. No calf tenderness noted. VASCULAR: Radial and dorsalis pedis pulses palpated, no evidence of clubbing. NEUROLOGIC: Patient is awake, alert and oriented x3. There were no obvious focal neurologic abnormalities. Procedure site: AICD insertion site CDI, no bleeds or hematoma. Bandaged at this time. LAB DATA: hgb 11.2, hct 37.4. INR 1.4. BUN 20, CR 1.29. FINAL IMPRESSION: 1. S/P AICD insertion 2. S/P electrical cardioversion 3. Ishcemic cardiomyopathy 4. Wide QRS V-tach 5. Hypertension 6. Advanced CAD s/p PCI PLAN: Increase lisinopril to 20 mg twice daily. Increase Coreg to 12.5 mg twice daily. Clear from a cardiology standpoint for discharge. Continue with Coumadin for anticoagulation, INR goal 2-3. Patient to follow-up Dr. Jay in one week. Continue all other medical/medication regime. Heart healthy diet. Clear for discharge. Objective - Vital Signs Vital signs: Vital Signs Temp 98 F 04/26/19 12:00 Pulse 73 04/26/19 12:00 Resp 18 04/26/19 12:00 BP 158/90 04/26/19 12:00 Pulse Ox 96 04/26/19 12:00 Intake & Output 04/25/19 04/26/19 04/26/19 18:59 06:59 18:59 Intake Total 430 230 720 Output Total 400 1 Balance 30 229 720 Weight 113 kg Intake: Oral 430 230 720 Output: Urine 400 Stool 1 Other: Voiding Method Toilet Toilet Toilet Diaper Diaper Diaper # Bowel Movements 1 - Labs CBC & Chem 7: 04/26/19 05:44 04/26/19 05:44 Labs: Abnormal Lab Results - Last 24 Hours (Table) 04/25/19 04/25/19 04/26/19 Range/Units 16:52 20:24 05:44 RBC 4.00 L (4.30-5.90) m/uL Hgb 11.2 L (13.0-17.5) gm/dL Hct 37.4 L (39.0-53.0) % MCHC 29.8 L (31.0-37.0) g/dL Lymphocytes # 0.6 L (1.0-4.8) k/uL PT (9.0-12.0) sec INR (<1.2) Chloride (98-107) mmol/L Carbon Dioxide (22-30) mmol/L Creatinine (0.66-1.25) mg/dL Glucose (74-99) mg/dL POC Glucose (mg/dL) 168 H 175 H (75-99) mg/dL 04/26/19 04/26/19 04/26/19 Range/Units 05:44 05:44 05:57 RBC (4.30-5.90) m/uL Hgb (13.0-17.5) gm/dL Hct (39.0-53.0) % MCHC (31.0-37.0) g/dL Lymphocytes # (1.0-4.8) k/uL PT 14.0 H (9.0-12.0) sec INR 1.4 H (<1.2) Chloride 113 H (98-107) mmol/L Carbon Dioxide 21 L (22-30) mmol/L Creatinine 1.29 H (0.66-1.25) mg/dL Glucose 119 H (74-99) mg/dL POC Glucose (mg/dL) 121 H (75-99) mg/dL 04/26/19 Range/Units 11:43 RBC (4.30-5.90) m/uL Hgb (13.0-17.5) gm/dL Hct (39.0-53.0) % MCHC (31.0-37.0) g/dL Lymphocytes # (1.0-4.8) k/uL PT (9.0-12.0) sec INR (<1.2) Chloride (98-107) mmol/L Carbon Dioxide (22-30) mmol/L Creatinine (0.66-1.25) mg/dL Glucose (74-99) mg/dL POC Glucose (mg/dL) 156 H (75-99) mg/dL
--- NOTE | 2019-04-26 14:45 | P.DS ---
Providers Date of admission: 04/21/19 11:59 Expected date of discharge: 04/26/19 Attending physician: Ubaldo Oglesby Consults: 04/21/19 12:00 Consult Physician Urgent Consulting Provider: Jose Patricio Consult Reason/Comments: Wide-complex tachycardia Do you want consulting provider notified?: Already Contacted 04/23/19 13:59 Consult to Anesthesia Routine Consulting Provider: Anesthesia,Services Consult Reason/Comments: Requires AICD and has Myasthenia Gravis; requires evaluation Primary care physician: Monica [facility] Course: 78-year-old male history of atrial fibrillation, CAD presents with bilateral upper arm pain, diaphoresis, lightheadedness. Patient is currently on Coumadin with history of atrial fibrillation. He is uncertain if he took his morning medications which include metoprolol. He denies central chest pain or symptoms began approximately 30 minutes prior to arrival. He's had some cough and mild dyspnea which is been ongoing for approximately one year. No fever. No other recent illness, no vomiting or diarrhea. 04/24/2019 Patient is seen and evaluated in room at bedside; patient denies any chest pain or shortness of breath; he is status post electrical cardioversion and is scheduled for ICD placement today; patient had cardiac catheterization showing chronic occlusion of mid circumflex and previous inferior DC with EF of 25%; patient's hasn't had any recurrence of ventricular arrhythmia; remains in atrial fibrillation with controlled ventricular response Scheduled for AICD placement today 04/25/2019 Patient is seen and evaluated in room at bedside; he is status post ICD placement due to wide complex tachycardia and severe cardiomyopathy; cardiology is following; ICD site is clean and chest x-ray is stable; device has been interrogated and functioning well; patient has been started on Coumadin and plan is for discharge tomorrow morning if remains stable 04/26/2019; patient remains stable; metoprolol has been switched to oral Coreg 12.5 mg twice a day due to persistently elevated high blood pressure; patient remains on current medication therapy and is cleared for discharge by cardiology service with plan to follow-up with primary public health dentist within one week Patient Condition at Discharge: Serious Plan - Discharge Summary Discharge Rx Participant: No New Discharge Prescriptions: New Spironolactone [Aldactone] 25 mg PO DAILY #30 tab Aspirin 81 mg PO DAILY chew Amiodarone [Cordarone] 200 mg PO BID #60 tab Carvedilol [Coreg*] 12.5 mg PO BID-W/MEALS #60 tab Potassium Chloride ER [K-Dur 20] 20 meq PO DAILY #30 tab.er.prt Furosemide [Lasix] 20 mg PO DAILY #30 tab Lisinopril [Zestril] 20 mg PO BID #0 tab Continue Atorvastatin [Lipitor] 80 mg PO QAM Warfarin Sodium [Coumadin] 5 mg PO SUTUWETHSA Primidone [Mysoline] 25 mg PO AC-SUPPER Pyridostigmine [place] [Mestinon] 60 mg PO Q4H Primidone [Mysoline] 50 mg PO DAILY@1100 metFORMIN HCL ER [Glucophage Xr] 500 mg PO BID Primidone [Mysoline] 250 mg PO HS Aspirin EC [Ecotrin] 325 mg PO DAILY Tamsulosin HCl [Flomax] 0.4 mg PO DAILY Levalbuterol Nebulized [Xopenex Nebulized] 1.25 mg INHALATION RT-DAILY Warfarin [Coumadin] 2.5 mg PO MOFR Lisinopril [Zestril] 20 mg PO DAILY Discontinued Metoprolol Tartrate [Lopressor] 50 mg PO BID #60 tab Discharge Medication List Atorvastatin [Lipitor] 80 mg PO QAM 12/21/15 [History] Warfarin Sodium [Coumadin] 5 mg PO SUTUWETHSA 02/01/16 [History] Primidone [Mysoline] 25 mg PO AC-SUPPER 08/16/18 [History] Primidone [Mysoline] 50 mg PO DAILY@1100 08/16/18 [History] Primidone [Mysoline] 250 mg PO HS 08/16/18 [History] Pyridostigmine [place] [Mestinon] 60 mg PO Q4H 08/16/18 [History] metFORMIN HCL ER [Glucophage Xr] 500 mg PO BID 08/16/18 [History] Aspirin EC [Ecotrin] 325 mg PO DAILY 04/21/19 [History] Levalbuterol Nebulized [Xopenex Nebulized] 1.25 mg INHALATION RT-DAILY 04/21/19 [History] Lisinopril [Zestril] 20 mg PO DAILY 04/21/19 [History] Tamsulosin HCl [Flomax] 0.4 mg PO DAILY 04/21/19 [History] Warfarin [Coumadin] 2.5 mg PO MOFR 04/21/19 [History] Amiodarone [Cordarone] 200 mg PO BID #60 tab 04/26/19 [Rx] Aspirin 81 mg PO DAILY chew 04/26/19 [Rx] Carvedilol [Coreg*] 12.5 mg PO BID-W/MEALS #60 tab 04/26/19 [Rx] Furosemide [Lasix] 20 mg PO DAILY #30 tab 04/26/19 [Rx] Lisinopril [Zestril] 20 mg PO BID #0 tab 04/26/19 [Rx] Potassium Chloride ER [K-Dur 20] 20 meq PO DAILY #30 tab.er.prt 04/26/19 [Rx] Spironolactone [Aldactone] 25 mg PO DAILY #30 tab 04/26/19 [Rx] Follow up Appointment(s)/Referral(s): [facility] [Provider Group] - 1 Week (Device Clinic appointment:) Monica Grewal III, MD [Primary Care Provider] - 1-2 days [facility], [NON-STAFF] - Tae Jay MD [STAFF PHYSICIAN] - 1 Week Patient Instructions/Handouts: Left Heart Catheterization (DC), Heart Healthy Diet (DC), Implantable Cardioverter Defibrillator (DC) Activity/Diet/Wound Care/Special Instructions: DEFIBRILLATOR INSTRUCTIONS: 1. Keep dressing dry and intact for 5 days. You may cover the area with saran or cling wrap, prior to a shower. 2. The dressing will be removed in the Device Clinic at [facility]. Absorbable sutures were used to close the wound. 3. Avoid raising the left arm above the shoulder level. (4-week restriction). 4. Avoid arm movements, like backscratching, rubbing your head, or pulling on a cord with your left arm. (4-week restriction). 5. Gentle range of motion movements of the left shoulder should be performed to avoid a frozen shoulder. (Pendulum exercises). 6. The opposite arm may be used freely. 7. Avoid driving for 7 days. 8. Avoid activities such as golfing, swimming, week whacking, lifting more than 10 pounds of weight, bowling, gymnastics and weight training/lifting. (6-week restriction). 9. Activities such as chopping wood, pull-ups, power lifting, welding, and being around an induction cooktop will always be a problem and can interfere with your pacemaker. 10. Your arm sling is only a reminder to not lift your arm above your head. You do not need to keep the arm completely immobilized. You are free to move your arm and use it for normal activities. In case of any problems, please call [facility] [place] @ [phone]. Discharge Disposition: HOME SELF-CARE
[2019-04-26] MEDS ORDERED: CARVEDILOL 12.5 MG TAB PO SCH (17:30)
[2019-04-26] MEDS ORDERED: LISINOPRIL 20 MG TAB PO SCH (21:00)
--- NOTE | 2019-04-28 08:33 | CDI ---
Documentation Clarification Form Date: 04/23/2019 02:53:34 PM From: Mary Jane Escudero RN CCDS Admit Date: 04/21/2019 11:59:00 AM Patient Name: Rajeev Eagle Visit Number: [id number] Discharge Date: ATTENTION: The Clinical Documentation Specialists (CDI) and [facility] Coding Staff appreciate your assistance in clarifying documentation. Please respond to the clarification below the line at the bottom and electronically sign. The CDI & [facility] Coding staff will review the response and follow-up if needed. Please note: Queries are made part of the Legal Health Record. If you have any questions, please contact the author of this message via ITS. Dr. Jose Patricio The patient is not in overt Heart failure Documented in your progress note 04/23/2019 History/Risk Factors: 78-year-old male presents to the ED with bilateral arm pain, diaphoresis and lightheadedness. Medical history of Atrial Fibrillation CAD, TIA/CVA; HLD; HTN; Clinical Indicators: VS/Pulse OX: 04/21/2019 136/99 174 97.6 19 98% ra BNP: 3890 Echocardiogram Results:04/21/19 Left ventricular systolic function is severely impaired with, an EF between 20 25%. Chest X Ray: Cardiomegaly with basilar atelectasis or infiltrate and small effusion. Treatment: 04/23/19 Lasix 20mg po daily; 04/21/19 Lopressor 50mg bid deanna ;04/22/2019 Lisinopril 20mg daily In your professional opinion, can you please clarify the acuity and type of CHF if known? Chronic Systolic Heart Failure Unable to Determine Other, please specify (Last Revision: July 2017)Chronic Systolic Heart Failure MTDD
--- NOTE | 2019-04-28 10:09 | CDI ---
Documentation Clarification Form Date: 04/28/19 From: Kaye Muhammad Phone: If you have a question about this query, please contact Denia Jeong, County Court Judge at [phone] between 8am and 5pm. Admit Date: 04/21/19 Discharge Date: 04/26/19 Patient Name: Rajeev Eagle Visit Number: [id number] ATTENTION: The Clinical Documentation Specialists (CDI) and [facility] Coding Staff appreciate your assistance in clarifying documentation. Please respond to the clarification below the line at the bottom and electronically sign. The CDI & [facility] Coding staff will review the response and follow-up if needed. Please note: Queries are made part of the Legal Health Record. If you have any questions, please contact the author of this message via ITS. Dear Dr. Oglesby The diagnosis of acute brb-FQ-[id number]-elevation myocardial infarction was documented in the ED note and your 04/22-04/23 progress notes, but is not noted in subsequent documentation. History/Risk Factors: Previous AK, CAD, hypertension, hyperlipidemia, CHF, ventricular tachycardia Clinical Indicators: Chest pain, bilateral arm pain, elevated troponin Heart cath results: Patient stent to LAD, chronic total occlusion of the distal circumflex with collaterals from the RCA, no progression of coronary artery disease. Treatment: Left heart cath Other clinical indicators: Patient also had v-tach with single chamber ICD insertion Consult: patient had a V-tach to nearly 140 to 150 beats per minute for several hours and that may be the reason for troponin elevation. Please clarify if the NSTEMI was Present/active this admission Treated and resolved this admission Ruled out Other, please specify Clinically unable to determine Present/active this admission MTDD
== END 2019-04-26 16:17 | disposition home or self-care (01) | DRG 224 ==
LOC: EC 10:04 → 3SCARD 11:59
PROVIDERS: ADMIT Hospitalist; ATTEND Hospitalist
PROC: 5A2204Z Restoration of Cardiac Rhythm, Single (ICD-10-PCS; 2019-04-21)
PROC: B2111ZZ Fluoroscopy of Multiple Coronary Arteries using Low Osmolar Contrast (ICD-10-PCS; 2019-04-22)
PROC: 4A023N7 Measurement of Cardiac Sampling and Pressure, Left Heart, Percutaneous Approach (ICD-10-PCS; 2019-04-22)
PROC: 02HK3KZ Insertion of Defibrillator Lead into Right Ventricle, Percutaneous Approach (ICD-10-PCS; principal; 2019-04-25)
PROC: 0JH608Z Insertion of Defibrillator Generator into Chest Subcutaneous Tissue and Fascia, Open Approach (ICD-10-PCS; principal; 2019-04-25)
DX: I47.2 Ventricular tachycardia (principal); I21.4 Non-ST elevation (NSTEMI) myocardial infarction; Z68.41 Body mass index [BMI] 40.0-44.9, adult; I50.22 Chronic systolic (congestive) heart failure; I48.21 Permanent atrial fibrillation; G70.00 Myasthenia gravis without (acute) exacerbation; I27.20 Pulmonary hypertension, unspecified; I11.0 Hypertensive heart disease with heart failure; D50.9 Iron deficiency anemia, unspecified; E11.9 Type 2 diabetes mellitus without complications; E66.9 Obesity, unspecified; E78.5 Hyperlipidemia, unspecified; F17.200 Nicotine dependence, unspecified, uncomplicated; F41.9 Anxiety disorder, unspecified; H91.90 Unspecified hearing loss, unspecified ear; I25.10 Atherosclerotic heart disease of native coronary artery without angina pectoris; I25.2 Old myocardial infarction; I25.5 Ischemic cardiomyopathy; I35.9 Nonrheumatic aortic valve disorder, unspecified; I44.7 Left bundle-branch block, unspecified; J44.9 Chronic obstructive pulmonary disease, unspecified; N40.0 Benign prostatic hyperplasia without lower urinary tract symptoms; K44.9 Diaphragmatic hernia without obstruction or gangrene; M19.90 Unspecified osteoarthritis, unspecified site; R41.3 Other amnesia; Z79.01 Long term (current) use of anticoagulants; Z79.4 Long term (current) use of insulin; Z79.82 Long term (current) use of aspirin; Z79.899 Other long term (current) drug therapy; Z86.73 Personal history of transient ischemic attack (TIA), and cerebral infarction without residual deficits; Z86.74 Personal history of sudden cardiac arrest; Z90.49 Acquired absence of other specified parts of digestive tract; Z95.5 Presence of coronary angioplasty implant and graft; Z91.018 Allergy to other foods; Z98.49 Cataract extraction status, unspecified eye; Z96.1 Presence of intraocular lens; Z80.8 Family history of malignant neoplasm of other organs or systems
CPT/HCPCS: 33249; 36415; 71045; 71046; 80048; 80053; 81001; 83735; 83880; 84443; 84484; 85025; 85610; 85730; 92960; 93005; 93306; 93458; 94640; 94760; 96365; 96366; 96368; 96375; 96376; 99291

== ENCOUNTER 2019-06-27 | Emergency (ER) | payer MEDICARE | END 2019-06-27 21:21 | disposition home or self-care (01) | CPT/HCPCS: 36415; 71046; 80053; 83690; 83735; 83880; 84484; 85025; 85610; 85730; 93005; 96360; 99285 ==

== ENCOUNTER 2021-12-14 12:33 | Inpatient (IN) | payer MEDICARE ==
[2021-12-14 13:40] LABS: Albumin 4.1 g/dL (3.5-5.0); Calcium 8.3 mg/dL (8.4-10.2); Total Bilirubin 0.7 mg/dL (0.2-1.3); Total Protein 6.9 g/dL (6.3-8.2)
[2021-12-14 13:41] LABS: INR 2.5 (<1.2); Partial Thromboplastin Time 34.3 sec (22.0-30.0); Prothrombin Time 25.1 sec (9.0-12.0)
--- NOTE | 2021-12-14 14:08 | XR ---
EXAMINATION TYPE: XR chest 2V DATE OF EXAM: 12/14/2021 COMPARISON: Chest x-ray June 27, 2019 HISTORY: Cough. TECHNIQUE: Frontal and lateral views of the chest are obtained. FINDINGS: There is cardiomegaly with single lead pacemaker/defibrillator. There are chronic parench ymal changes with increased left greater than right bibasilar opacities on current study. No pleural effusion or pneumothorax seen bilaterally. Multilevel spurring in thoracic spine redemonstrated. IMPRESSION: Cardiomegaly and chronic changes with left greater than right bibasilar acute infiltrate and/or atelectasis noted.
[2021-12-14] MEDS ORDERED: NITROGLYCERIN SL TABS 0.4 MG TAB SUBLINGUAL PRN (15:35)
--- NOTE | 2021-12-14 15:35 | ED ---
General Adult HPI - General Source: patient, RN notes reviewed Mode of arrival: wheelchair Limitations: no limitations <Nic Latif - Last Filed: 12/14/21 15:32> <Gael Segura - Last Filed: 12/14/21 18:21> - General Chief complaint: Fever Stated complaint: COVID+ Time Seen by Provider: 12/14/21 15:18 - History of Present Illness Initial comments: 80-year-old male presents emergency Department with chief complaint of cough congestion. Patient states he started with symptoms last couple days tested positive at home for COVID-19. Patient states he feels very fatigued, arm pain, body aches. Patient complains of fever, chills. Patient does have nasal congestion no sick contacts at home. Patient has a significant cardiac history. Patient does not have any chest pain at this time. (Nic Latif) - Related Data Home Medications Medication Instructions Recorded Confirmed Atorvastatin [Lipitor] 80 mg PO DAILY 12/21/15 12/14/21 Warfarin Sodium [Coumadin] 5 mg PO SUTUTHSA 02/01/16 12/14/21 Primidone [Mysoline] 200 mg PO HS 08/16/18 12/14/21 Pyridostigmine [place] [Mestinon] 60 mg PO QID 08/16/18 12/14/21 metFORMIN HCL ER [Glucophage XR] 500 mg PO DAILY 08/16/18 12/14/21 Mexilet[place] HCl 150 mg PO BID 12/14/21 12/14/21 Warfarin Sodium 7.5 mg PO MOWEFR 12/14/21 12/14/21 carvediloL 25 mg PO BID 12/14/21 12/14/21 Previous Rx's Medication Instructions Recorded Furosemide [Lasix] 20 mg PO DAILY #30 tab 04/26/19 Potassium Chloride ER [K-Dur 20] 20 meq PO DAILY #30 tab.er.prt 04/26/19 Spironolactone [Aldactone] 25 mg PO DAILY #30 tab 04/26/19 lisinopriL [Zestril] 20 mg PO BID #0 tab 04/26/19 Allergies Allergy/AdvReac Type Severity Reaction Status Date / Time mayonnaise AdvReac Vomiting Verified 12/14/21 16:52 SOUR CREAM AdvReac Vomiting Uncoded 06/27/19 18:35 Review of Systems ROS Other: All systems not noted in ROS Statement are negative. <SalomonNic Webster - Last Filed: 12/14/21 15:32> ROS Other: All systems not noted in ROS Statement are negative. <Gael Segura - Last Filed: 12/14/21 18:21> ROS Statement: Those systems with pertinent positive or pertinent negative responses have been documented in the HPI. Past Medical History Past Medical History: Atrial Fibrillation, COPD, CVA/TIA, Diabetes Mellitus, Eye Disorder, Hearing Disorder / Deafness, Hyperlipidemia, Hypertension, Memory Impairment, Musculoskeletal Disorder, Neurologic Disorder, Prostate Disorder Additional Past Medical History / Comment(s): CARDIAC ARREST IN 2008, MYASTHENIA GRAVIS. tremors, HX Iron deficiency Anemia. New Onset A-Fib 12/2015. Hiatal Hernia. POSS TIA YEARS AGO. BPH. Last Myocardial Infarction Date:: 2008 History of Any Multi-Drug Resistant Organisms: None Reported Past Surgical History: Appendectomy, Cholecystectomy, Heart Catheterization With Stent Additional Past Surgical History / Comment(s): Defbrilator implanted 06/04 HEMORROIDECTOMY. EGD/Colonoscopy. STENTS X2. RIA, CARDIOVERSION, cataract surg. August 2016 Past Anesthesia/Blood Transfusion Reactions: No Reported Reaction Date of Last Stent Placement:: 2008 Past Psychological History: No Psychological Hx Reported Smoking Status: Never smoker Past Alcohol Use History: Rare Past Drug Use History: None Reported - Past Family History Father Family Medical History: Cancer Additional Family Medical History / Comment(s): bone cancer. Mother Additional Family Medical History / Comment(s): when pt was born. Daughter(s) Family Medical History: Cancer <NamNic bautista - Last Filed: 12/14/21 15:32> General Exam General appearance: alert, in no apparent distress Head exam: Present: atraumatic, normocephalic, normal inspection Eye exam: Present: normal appearance, PERRL, EOMI. Absent: scleral icterus, conjunctival injection, periorbital swelling ENT exam: Present: normal exam, mucous membranes moist Neck exam: Present: normal inspection, full ROM. Absent: tenderness, meningismus, lymphadenopathy Respiratory exam: Present: normal lung sounds bilaterally. Absent: respiratory distress, wheezes, rales, rhonchi, stridor Cardiovascular Exam: Present: normal rhythm, tachycardia, normal heart sounds. Absent: systolic murmur, diastolic murmur, rubs, gallop, clicks GI/Abdominal exam: Present: soft, normal bowel sounds. Absent: distended, tenderness, guarding, rebound, rigid <Nic Latif - Last Filed: 12/14/21 15:32> Course Vital Signs 12/14/21 12/14/21 12/14/21 12:34 16:53 18:15 Temperature 100.2 F H 101.3 F H 101.3 F H Pulse Rate 117 H 68 93 Respiratory 18 16 Rate Blood Pressure 149/74 138/70 O2 Sat by Pulse 94 L 95 96 Oximetry EKG Findings - EKG Comments: EKG Findings:: A. fib with rate of 91. QRS 102. QT 349. QTC 397. Normal axis. Normal QRS. Inferior T wave inversion. <Gael Segura - Last Filed: 12/14/21 18:21> Medical Decision Making - Lab Data Result diagrams: 12/14/21 12:51 <Nic Latif - Last Filed: 12/14/21 15:32> - Lab Data Result diagrams: 12/14/21 12:51 <Gael Segura - Last Filed: 12/14/21 18:21> - Medical Decision Making 80-year-old presented for fever cough congestion patient's COVID-19 positive x- ray shows atelectasis versus early infiltrate. Patient had an elevated troponin drawn in triage. Patient is not her complaint of current chest pain this may related to COVID-19 though he has a significant cardiac history or repeat tr oponin, consult to cardiology. (Nic Latif) - Lab Data Lab Results 12/14/21 12/14/21 12/14/21 Range/Units 12:44 12:51 12:51 PT 25.1 H (9.0-12.0) sec INR 2.5 H (<1.2) APTT 34.3 H (22.0-30.0) sec Sodium 137 (137-145) mmol/L Potassium 4.0 (3.5-5.1) mmol/L Chloride 105 (98-107) mmol/L Carbon Dioxide 23 (22-30) mmol/L Anion Gap 9 mmol/L BUN 16 (9-20) mg/dL Creatinine 1.25 (0.66-1.25) mg/dL Est GFR (CKD-EPI)AfAm 63 (>60 ml/min/1.73 sqM) Est GFR (CKD-EPI)NonAf 55 (>60 ml/min/1.73 sqM) Glucose 167 H (74-99) mg/dL Calcium 8.3 L (8.4-10.2) mg/dL Total Bilirubin 0.7 (0.2-1.3) mg/dL AST 28 (17-59) U/L ALT 24 (4-49) U/L Alkaline Phosphatase 165 H (38-126) U/L Troponin I (0.000-0.034) ng/mL Total Protein 6.9 (6.3-8.2) g/dL Albumin 4.1 (3.5-5.0) g/dL Coronavirus (PCR) Detected A (Not Detectd) 12/14/21 Range/Units 12:51 PT (9.0-12.0) sec INR (<1.2) APTT (22.0-30.0) sec Sodium (137-145) mmol/L Potassium (3.5-5.1) mmol/L Chloride (98-107) mmol/L Carbon Dioxide (22-30) mmol/L Anion Gap mmol/L BUN (9-20) mg/dL Creatinine (0.66-1.25) mg/dL Est GFR (CKD-EPI)AfAm (>60 ml/min/1.73 sqM) Est GFR (CKD-EPI)NonAf (>60 ml/min/1.73 sqM) Glucose (74-99) mg/dL Calcium (8.4-10.2) mg/dL Total Bilirubin (0.2-1.3) mg/dL AST (17-59) U/L ALT (4-49) U/L Alkaline Phosphatase (38-126) U/L Troponin I 0.044 H* (0.000-0.034) ng/mL Total Protein (6.3-8.2) g/dL Albumin (3.5-5.0) g/dL Coronavirus (PCR) (Not Detectd) Disposition Time of Disposition: 15:34 <Nic Latif - Last Filed: 12/14/21 15:32> <Gael Segura - Last Filed: 12/14/21 18:21> Clinical Impression: Elevated troponin, COVID-19, Weakness, Myasthenia gravis Disposition: ADMITTED IP TO THIS HOSP Condition: Fair
[2021-12-14] MEDS ORDERED: PYRIDOSTIGMINE 60 MG TAB PO SCH (16:15)
[2021-12-14] MEDS ORDERED: PRIMIDONE 25 MG TAB PO SCH (17:30)
[2021-12-14] MEDS ORDERED: carvediloL 12.5 MG TAB PO SCH (17:30)
[2021-12-14] MEDS ORDERED: WARFARIN 5 MG TAB PO SCH (18:00)
[2021-12-14 18:17] LABS: INR 2.5 (<1.2); Prothrombin Time 25.2 sec (9.0-12.0)
[2021-12-14] MEDS ORDERED: DEXTROSE 50% SYRINGE 50 ML IVP PRN ×2 (18:17)
[2021-12-14] MEDS: carvediloL 12.5 MG TAB PO SCH (18:56)
[2021-12-14] MEDS: PYRIDOSTIGMINE 60 MG TAB PO SCH ×2 (19:00→20:14)
[2021-12-14] MEDS: MEXILETINE 150 MG CAP PO SCH (20:14)
[2021-12-14] MEDS: lisinopriL 20 MG TAB PO SCH (20:14)
[2021-12-14] MEDS ORDERED: PRIMIDONE 50 MG TAB PO SCH ×2 (21:00)
[2021-12-14] MEDS ORDERED: AMIODARONE 200 MG TAB PO SCH (21:00)
[2021-12-14] MEDS ORDERED: metFORMIN 500 MG TAB PO SCH (21:00)
[2021-12-14 21:07] LABS: Glucose,Whole Blood 137 mg/dL (70-110)
[2021-12-14] MEDS: INSULIN ASPART (NovoLOG) 100 UNIT/ML VIAL SQ SCH (21:24)
[2021-12-15 04:30] VITALS: RESP 16
--- NOTE | 2021-12-15 04:30 | HP ---
HISTORY AND PHYSICAL CHIEF COMPLAINT: COVID positive and cough and congestion. HISTORY OF PRESENT ILLNESS: This is a 80-year-old gentleman, being followed by the patient is fully vaccinated. The patient has past medical history of multiple medical issues including diabetes mellitus type 2. The patient is having cough and congestion for the last several days and the patient was very fatigued. The patient came to [facility]. COVID-19 was positive and the troponins elevated up to 0.044 . There is no history of any fever, rigors, or chills. PAST MEDICAL HISTORY: Reviewed, includes diabetes mellitus, atrial fibrillation, and COPD. HOME MEDICATIONS: Reviewed, include Coreg, dose and rest of medications noted. ALLERGIES: FAMILY HISTORY: History of bone cancer. SOCIAL HISTORY: No history of smoking. Rare alcohol intake. REVIEW OF SYSTEMS: 14-point review is negative as mentioned earlier. PHYSICAL EXAMINATION: VITAL SIGNS: Pulse is 117, blood pressure is , respirations 18 temperature 101.3, and pulse ox 94% on room air. HEENT: Conjunctivae normal. NECK: No jugular venous distention. CARDIOVASCULAR: S1, S2 muffled. RESPIRATION: Breath sounds diminished in the bases. Scattered rhonchi. ABDOMEN: Soft and obese. LEGS: No edema. No swelling. LABS: Reviewed. ASSESSMENT: 1. Acute COVID-19 infection. 2. Fever. 3. Troponin of 0.044. 4. Diabetes mellitus, type 2. 5. Chronic obstructive pulmonary disease. 6. Multiple medical issues. RECOMMENDATIONS: This is a 80-year-old gentleman, who presented with multiple complex medical issues. We will resume the home medications. I recommend Cardiology consultation, Infectious Disease evaluation, symptomatic treatment for the fever, ensure oxygenation. See orders for details. Usual treatment for COVID. The patient is only on Coumadin. Further recommendations to follow. Repeat labs. MMODL / IJN: [id number] /
[2021-12-15 06:21] LABS: Glucose,Whole Blood 140 mg/dL (70-110)
[2021-12-15] MEDS: INSULIN ASPART (NovoLOG) 100 UNIT/ML VIAL SQ SCH ×2 (06:33→11:57)
[2021-12-15] MEDS: carvediloL 12.5 MG TAB PO SCH (06:33)
[2021-12-15 07:19] LABS: INR 2.2 (<1.2); Prothrombin Time 22.3 sec (9.0-12.0)
[2021-12-15 07:23] LABS: ALT 22 U/L (4-49); AST 30 U/L (17-59); African American GFR (CKD) 54 (>60 ml/min/1.73 sqM); Albumin 3.4 g/dL (3.5-5.0); Alkaline Phosphatase 118 U/L (38-126); Anion Gap 5 mmol/L; Blood Urea Nitrogen 19 mg/dL (9-20); Calcium 7.8 mg/dL (8.4-10.2); Carbon Dioxide 27 mmol/L (22-30); Chloride 104 mmol/L (98-107); Glucose 119 mg/dL (74-99); Non-African American GFR(CKD) 47 (>60 ml/min/1.73 sqM); Potassium 3.9 mmol/L (3.5-5.1); Sodium 136 mmol/L (137-145); Total Bilirubin 0.6 mg/dL (0.2-1.3); Total Protein 5.9 g/dL (6.3-8.2)
[2021-12-15 07:30] LABS: Basophils % (A) 1 %; Eosinophils % (A) 0 %; HCT 34.8 % (39.0-53.0); HGB 11.3 gm/dL (13.0-17.5); Lymphocytes # (A) 0.5 k/uL (1.0-4.8); Lymphocytes % (A) 9 %; MCH 31.3 pg (25.0-35.0); MCHC 32.3 g/dL (31.0-37.0); MCV 96.8 fL (80.0-100.0); Mean Platelet Volume 8.2; Monocytes # (A) 0.5 k/uL (0-1.0); Monocytes % (A) 10 %; Neutrophils % (A) 77 %; Platelet Count 193 k/uL (150-450); RDW 13.6 % (11.5-15.5); WBC 5.2 k/uL (3.8-10.6)
[2021-12-15] MEDS ORDERED: SODIUM CHLORIDE 0.9% 1,000 ML IV SCH (08:15)
[2021-12-15] MEDS: lisinopriL 20 MG TAB PO SCH (08:24)
[2021-12-15] MEDS: PYRIDOSTIGMINE 60 MG TAB PO SCH ×2 (08:26→13:54)
[2021-12-15] MEDS: MEXILETINE 150 MG CAP PO SCH (08:27)
[2021-12-15] MEDS ORDERED: POTASSIUM CHLORIDE ER 20 MEQ TAB.ER PO SCH (09:00)
[2021-12-15] MEDS ORDERED: NON FORMULARY DRUG (Aspirin Ec 325 MG Tablet.Dr) PO SCH (09:00)
[2021-12-15] MEDS ORDERED: SPIRONOLACTONE 25 MG TAB PO SCH (09:00)
[2021-12-15] MEDS ORDERED: FUROSEMIDE 20 MG TAB PO SCH (09:00)
[2021-12-15] MEDS ORDERED: TAMSULOSIN 0.4 MG CAP.ER.24H PO SCH (09:00)
[2021-12-15] MEDS ORDERED: ATORVASTATIN 80 MG TAB PO SCH (09:00)
[2021-12-15] MEDS ORDERED: ASPIRIN 325 MG TAB PO SCH (09:00)
[2021-12-15] MEDS ORDERED: metFORMIN 500 MG TAB PO SCH (09:00)
--- NOTE | 2021-12-15 10:52 | P.CRDCN ---
History of Present Illness History of present illness: Patient is a 80-year-old male with a past medical myasthenia gravis, history of CAD status post stenting, ischemic cardiomyopathy, persistent atrial fibrillation, diabetes, hypertension, dyslipidemia and former smoker. Follows with Dr. Jay. We are asked to see in consultation for elevated troponin. Patient presents to the emergency department with worsening cough, congestion, shortness of breath, fatigue, bilateral arm pain, generalized body aches, decrease appetite. Patient states his symptoms progressively got worse and presented to the ER for further evaluation. He denies any chest pain, exertional shortness of breath, lightheadedness, dizziness, LE edema, symptoms of orthopnea or PND. He currently states he overall feels fatigued and run down. He states these symptoms are not similar to his previous [place]. DIAGNOSTICS * EKG reveals atrial fibrillation HR 91, non-specific ST-T wave abnormalities, prior EKG in 06/2019 with simillar findings * Echocardiogram in the office 02/2021 EF 45-50%, small hypokinetic area of the inferior wall from the base to the mid wall, moderate aortic regurgiation, mild to moderate aortic stenosis, moderate mitral regurgitation, moderate tric uspid regurgitation * Lexiscan stress test 2018- reported prior inferolateral wall myocardial infarction with mild LV dysfunction without any ischemia * Cardiac catheterization 04/2019 reveals completely occluded distal circumflex, patent stent, collaterals from the RCA to circumflex, passes 1040% stenosis, RCA with mild to moderate atherosclerotic plaque in the midportion, left main free of any significant stenosis * Telemetry tracings indicate atrial fibrillation with controlled ventricular rates * Chest xray chronic changes with left greater than right bibasilar acute infiltrate * Laboratory reviewed, CBC 5.2, hemoglobin 11.3, INR 2.2, sodium 136, potassium 3.9, BUN 19, serum creatinine 1.4, troponin 0.04, 0.17, 0.28, Covid 19 positive * Current home cardiac medications include carvedilol 25 mg twice a day, mexiletine 150 mg twice a day, Coumadin, aspirin lactone driven milligrams daily, lisinopril 20 mg twice a day, Lasix 20 mg daily, atorvastatin 80 mg daily REVIEW OF SYSTEMS At the time of my exam: CONSTITUTIONAL: Denies fever or chills. +Generalized fatigue, +Decreased appetite CARDIOVASCULAR: Denies chest pain, +shortness of breath, Denies orthopnea, PND or palpitations. RESPIRATORY: Reports cough, congestion GASTROINTESTINAL: Denies abdominal pain, diarrhea, constipation, nausea or vomiting. MUSCULOSKELETAL: Denies myalgias. NEUROLOGIC: Denies numbness, tingling, headacbe or weakness. ENDOCRINE: Denies fatigue, weight change, polydipsia or polyurina. GENITOURINARY: Denies burning, hematuria or urgency with micturation. HEMATOLOGIC: Denies history of anemia or bleeding. PHYSICAL EXAMINATION Vitals reviewed CONSTITUTIONAL: No apparent distress. HEENT: Head is normocephalic. Pupils are equal, round. Sclerae anicteric. Mucous membranes of the mouth are moist. No JVD. CHEST EXAMINATION: Lungs are diminished in lower bases to auscultation. No chest wall tenderness is noted on palpation or with deep breathing. HEART EXAMINATION: Irregular rate and rhythm. S1, S2 heard. Systolic ejection murmur at base and apex ABDOMEN: Soft, nontender. Positive bowel sounds. EXTREMITIES: 2+ peripheral pulses, no lower extremity edema and no calf tenderness. NEUROLOGIC EXAMINATION: Patient is awake, alert and oriented x3. ASSESSMENT Covid-19 Infection Symptoms of cough, congestion, shortness of breath, fatigue, generalized body aches, decrease appetite Elevated troponin, unclear significance, likely related to febrile illness, covid-19 infection, patient without chest pain, no ischemia noted on EKG. Acute kidney injury History of ventricular tachycardia s/p ICD 2019 CAD status post stenting to circumflex in 2008, coronary angiogram in 2019 showing no progression of coronary artery disease Ischemic cardiomyopathy with improved ejection fraction Persistent atrial fibrillation, on coumadin Hypertension Dyslipidemia Type 2 Diabetes Former tobacco use PLAN: Hold Lasix, recommend IV fluids temporarily Continue home cardiac medications Elevated troponin, unclear significance, likely related to febrile illness, covid-19 infection, patient without chest pain, no ischemia noted on EKG. Continue home cardiac medications No further inpatient workup from a cardiology perspective. We will follow the patient as needed. Please reconsult if needed Follow up with Dr. Jay in 2 weeks. Nurse practitioner note has been reviewed by physician. Signing provider agrees with the documented findings, assessment, and plan of care. Past Medical History Past Medical History: Atrial Fibrillation, COPD, CVA/TIA, Diabetes Mellitus, Eye Disorder, Hearing Disorder / Deafness, Hyperlipidemia, Hypertension, Memory Impairment, Musculoskeletal Disorder, Neurologic Disorder, Prostate Disorder Additional Past Medical History / Comment(s): CARDIAC ARREST IN 2008, MYASTHENIA GRAVIS. tremors, HX Iron deficiency Anemia. New Onset A-Fib 12/2015. Hiatal Hernia. POSS TIA YEARS AGO. BPH. Last Myocardial Infarction Date:: 2008 History of Any Multi-Drug Resistant Organisms: None Reported Past Surgical History: Appendectomy, Cholecystectomy, Heart Catheterization With Stent Additional Past Surgical History / Comment(s): Defbrilator implanted 06/04 HEMORROIDECTOMY. EGD/Colonoscopy. STENTS X2. RIA, CARDIOVERSION, cataract surg. August 2016 Past Anesthesia/Blood Transfusion Reactions: No Reported Reaction Date of Last Stent Placement:: 2008 Past Psychological History: No Psychological Hx Reported Additional Psychological History / Comment(s): DENIES. Smoking Status: Never smoker Past Alcohol Use History: Rare Additional Past Alcohol Use History / Comment(s): QUIT 20 YRS AGO (1993), SMOKED FOR 20 YRS, 1PPD. Past Drug Use History: None Reported - Past Family History Father Family Medical History: Cancer Additional Family Medical History / Comment(s): bone cancer. Mother Additional Family Medical History / Comment(s): when pt was born. Daughter(s) Family Medical History: Cancer Medications and Allergies Home Medications Medication Instructions Recorded Confirmed Type Atorvastatin [Lipitor] 80 mg PO DAILY 12/21/15 12/14/21 History Warfarin Sodium [Coumadin] 5 mg PO SUTUTHSA 02/01/16 12/14/21 History Primidone [Mysoline] 200 mg PO HS 08/16/18 12/14/21 History Pyridostigmine Frannie [Mestinon] 60 mg PO QID 08/16/18 12/14/21 History metFORMIN HCL ER [Glucophage XR] 500 mg PO DAILY 08/16/18 12/14/21 History Furosemide [Lasix] 20 mg PO DAILY #30 tab 04/26/19 12/14/21 Rx Potassium Chloride ER [K-Dur 20] 20 meq PO DAILY #30 tab.er.prt 04/26/19 12/14/21 Rx Spironolactone [Aldactone] 25 mg PO DAILY #30 tab 04/26/19 12/14/21 Rx lisinopriL [Zestril] 20 mg PO BID #0 tab 04/26/19 12/14/21 Rx Mexiletine HCl 150 mg PO BID 12/14/21 12/14/21 History Warfarin Sodium 7.5 mg PO MOWEFR 12/14/21 12/14/21 History carvediloL 25 mg PO BID 12/14/21 12/14/21 History Allergies Allergy/AdvReac Type Severity Reaction Status Date / Time [facility] AdvReac Vomiting Verified 12/14/21 16:52 SOUR CREAM AdvReac Vomiting Uncoded 06/27/19 18:35 Physical Exam Vitals: Vital Signs Temp Pulse Pulse Resp BP BP Pulse Ox 12/15/21 04:29 99.4 F 78 16 115/73 98 12/15/21 00:00 99.3 F 76 18 136/68 95 12/14/21 20:00 99.3 F 87 16 135/62 94 L 12/14/21 18:15 101.3 F H 93 16 138/70 96 12/14/21 16:53 101.3 F H 68 18 149/74 95 12/14/21 12:34 100.2 F H 117 H 94 L Intake and Output 12/14/21 12/15/21 12/15/21 22:59 06:59 14:59 Intake Total 300 Output Total 0 Balance 300 Intake: Oral 300 Output: Stool 0 Other: Voiding Method Toilet Toilet Urinal Urinal # Voids 1 Weight 97.522 kg Results 12/15/21 06:37 12/15/21 06:37 Cardiac Enzymes 12/14/21 12/14/21 12/14/21 Range/Units 12:51 12:51 17:48 AST 28 (17-59) U/L Troponin I 0.044 H* 0.174 H* (0.000-0.034) ng/mL 12/14/21 12/15/21 Range/Units 20:59 06:37 AST 30 (17-59) U/L Troponin I 0.280 H* (0.000-0.034) ng/mL Coagulation 12/14/21 12/14/21 12/15/21 Range/Units 12:51 17:48 06:37 PT 25.1 H 25.2 H 22.3 H (9.0-12.0) sec APTT 34.3 H (22.0-30.0) sec CBC 12/15/21 Range/Units 06:37 WBC 5.2 (3.8-10.6) k/uL RBC 3.60 L (4.30-5.90) m/uL Hgb 11.3 L (13.0-17.5) gm/dL Hct 34.8 L (39.0-53.0) % Plt Count 193 (150-450) k/uL Comprehensive Metabolic Panel 12/14/21 12/15/21 Range/Units 12:51 06:37 Sodium 137 136 L (137-145) mmol/L Potassium 4.0 3.9 (3.5-5.1) mmol/L Chloride 105 104 (98-107) mmol/L Carbon Dioxide 23 27 (22-30) mmol/L BUN 16 19 (9-20) mg/dL Creatinine 1.25 1.42 H (0.66-1.25) mg/dL Glucose 167 H 119 H (74-99) mg/dL Calcium 8.3 L 7.8 L (8.4-10.2) mg/dL AST 28 30 (17-59) U/L ALT 24 22 (4-49) U/L Alkaline Phosphatase 165 H 118 (38-126) U/L Total Protein 6.9 5.9 L (6.3-8.2) g/dL Albumin 4.1 3.4 L (3.5-5.0) g/dL Current Medications Generic Name Dose Route Start Last Admin Trade Name Freq PRN Reason Stop Dose Admin Aspirin 325 mg 12/15/21 09:00 Aspirin 325 Mg Tab PO DAILY [facility] Atorvastatin Calcium 80 mg 12/15/21 09:00 [facility] 80 [facility] [place] Carvedil[place] 25 mg 12/14/21 18:30 12/15/21 06:33 Carvedilol 12.5 Mg Tab PO 25 mg BID-W/MEALS [facility] Administration Dextrose/Water 25 ml 12/14/21 18:17 Dextrose 50% Syringe 50 Ml IVP PER PROTOCOL PRN Hypoglycemia Protocol Dextrose/Water 50 ml 12/14/21 18:17 Dextrose 50% Syringe 50 Ml IVP PER PROTOCOL PRN Hypoglycemia Protocol Insulin Aspart 0 unit 12/14/21 21:00 12/15/21 06:33 Insulin Aspart (Novolog) 100 Unit/Ml Vial SQ Not Given ACHS [facility] Protocol Lisinopril 20 mg 12/14/21 21:00 12/14/21 20:14 Lisinopril 20 Mg Tab PO 20 mg BID [facility] Administration Metformin HCl 250 mg 12/15/21 09:00 Metformin 500 Mg Tab PO BID [facility] Mexiletine HCl 150 mg 12/14/21 21:00 12/14/21 20:14 Mexiletine 150 Mg Cap PO 150 mg Q12HR [facility] Administration Miscellaneous Information 1 each 12/14/21 16:17 Warfarin Per Pharmacy MISCELLANE DIRECTED PRN Per Protocol Nitroglycerin 0.4 mg 12/14/21 15:35 Nitroglycerin Sl Tabs 0.4 Mg Tab SUBLINGUAL Q5M PRN Chest Pain Potassium Chloride 20 meq 12/15/21 09:00 Potassium Chloride Er 20 Meq Tab.Er PO DAILY [facility] Primidone 200 mg 12/14/21 21:00 12/14/21 20:15 Primidone 50 Mg Tab PO 200 mg HS [facility] Administration Pyridostigmine Frannie 60 mg 12/14/21 18:30 12/14/21 20:14 Pyridostigmine 60 Mg Tab PO 60 mg QID [facility] Administration Spironolactone 25 mg 12/15/21 09:00 Spironolactone 25 Mg Tab PO DAILY [facility] Warfarin Sodium 7.5 mg 12/15/21 18:00 Warfarin 7.5 Mg Tab PO [email or web address] [facility] Protocol Warfarin Sodium 5 mg 12/14/21 18:00 12/14/21 18:56 Warfarin 5 Mg Tab PO 5 mg [email or web address] [facility] Administration Protocol Intake and Output 12/14/21 12/15/21 12/15/21 22:59 06:59 14:59 Intake Total 300 Output Total 0 Balance 300 Intake: Oral 300 Output: Stool 0 Other: Voiding Method Toilet Toilet Urinal Urinal # Voids 1 Weight 97.522 kg 12/15/21 06:37 12/15/21 06:37
[2021-12-15] MEDS ORDERED: PRIMIDONE 50 MG TAB PO SCH (11:00)
[2021-12-15] MEDS ORDERED: LOPERAMIDE 2 MG CAP PO PRN (11:54)
[2021-12-15 11:56] LABS: Glucose,Whole Blood 126 mg/dL (70-110)
[2021-12-15 16:59] VITALS: BP 159/72; PULSE 76; TEMP 96.6
[2021-12-15] MEDS ORDERED: WARFARIN 7.5 MG TAB PO SCH (18:00)
[2021-12-15 22:22] LABS: Chol/HDL Ratio 2.69 Ratio; LDL Cholesterol,Calculated 56.1 mg/dL (0.0-131.0)
== END 2021-12-15 17:34 | disposition home or self-care (01) | DRG 178 ==
LOC: EC 12:33 → 3SCARD 15:36
PROVIDERS: ADMIT Hospitalist; ATTEND Hospitalist
DX: U07.1 COVID-19 (principal); I48.19 Other persistent atrial fibrillation; N17.9 Acute kidney failure, unspecified; I25.10 Atherosclerotic heart disease of native coronary artery without angina pectoris; R79.89 Other specified abnormal findings of blood chemistry; D50.9 Iron deficiency anemia, unspecified; J44.9 Chronic obstructive pulmonary disease, unspecified; I25.5 Ischemic cardiomyopathy; I08.3 Combined rheumatic disorders of mitral, aortic and tricuspid valves; G70.00 Myasthenia gravis without (acute) exacerbation; I10 Essential (primary) hypertension; E11.9 Type 2 diabetes mellitus without complications; E78.5 Hyperlipidemia, unspecified; H91.90 Unspecified hearing loss, unspecified ear; I25.2 Old myocardial infarction; N40.0 Benign prostatic hyperplasia without lower urinary tract symptoms; Z79.01 Long term (current) use of anticoagulants; Z79.84 Long term (current) use of oral hypoglycemic drugs; Z79.899 Other long term (current) drug therapy; Z86.73 Personal history of transient ischemic attack (TIA), and cerebral infarction without residual deficits; Z86.74 Personal history of sudden cardiac arrest; Z86.79 Personal history of other diseases of the circulatory system; Z87.891 Personal history of nicotine dependence; Z95.5 Presence of coronary angioplasty implant and graft; Z91.018 Allergy to other foods; Z90.49 Acquired absence of other specified parts of digestive tract; Z87.19 Personal history of other diseases of the digestive system
CPT/HCPCS: 36415; 71046; 80053; 80061; 84484; 85025; 85610; 85730; 87635; 93005; 99285

== ENCOUNTER 2022-03-27 15:23 | Inpatient (IN) | payer MEDICARE ==
[2022-03-27] MEDS ORDERED: DILTIAZEM DRIP BOLUS FROM BAG 1 MG SOLN IV ONE (15:29)
[2022-03-27] MEDS ORDERED: DILTIAZEM 125 MG in SODIUM CHLORIDE 0.9% 100 ML IV SCH (15:30)
[2022-03-27 16:13] LABS: Basophils # (A) 0.1 k/uL (0-0.2); Basophils % (A) 1 %; Eosinophils # (A) 0.2 k/uL (0-0.7); Eosinophils % (A) 3 %; HCT 38.8 % (39.0-53.0); HGB 12.6 gm/dL (13.0-17.5); Hypochromasia Moderate; Lymphocytes # (A) 0.6 k/uL (1.0-4.8); Lymphocytes % (A) 8 %; MCH 30.6 pg (25.0-35.0); MCHC 32.4 g/dL (31.0-37.0); MCV 94.4 fL (80.0-100.0); Mean Platelet Volume 8.7; Monocytes # (A) 0.4 k/uL (0-1.0); Monocytes % (A) 5 %; Neutrophils % (A) 81 %; Platelet Count 347 k/uL (150-450); RBC 4.11 m/uL (4.30-5.90); RDW 13.9 % (11.5-15.5); WBC 7.4 k/uL (3.8-10.6)
--- NOTE | 2022-03-27 16:19 | XR ---
EXAMINATION TYPE: XR chest 2V DATE OF EXAM: 03/27/2022 COMPARISON: Chest x-ray December 14, 2021 HISTORY: Chest pain. TECHNIQUE: Frontal and lateral views of the chest are obtained. FINDINGS: There is cardiomegaly with single lead defibrillator redemonstrated. Mild bilateral inter stitial edema and small to tiny bilateral pleural effusions are present. The osseous structures are i ntact. Surgical clips in the abdomen noted on lateral view. IMPRESSION: Correlate for suspected CHF exacerbation.
[2022-03-27 16:21] LABS: INR 2.8 (<1.2); Prothrombin Time 27.4 sec (9.0-12.0)
[2022-03-27 16:31] LABS: Albumin 4.1 g/dL (3.5-5.0); Calcium 8.1 mg/dL (8.4-10.2); Magnesium 1.9 mg/dL (1.6-2.3); Potassium 4.5 mmol/L (3.5-5.1); Total Bilirubin 0.7 mg/dL (0.2-1.3)
--- NOTE | 2022-03-27 17:25 | ED ---
General Adult HPI - General Chief complaint: Shortness of Breath Stated complaint: arm & neck pain Time Seen by Provider: 03/27/22 15:25 Source: patient, EMS, RN notes reviewed, old records reviewed Limitations: no limitations - History of Present Illness Initial comments: This is an 81-year-old male who presents to the emergency department complaining that he has been having some pain in his arms radiates to his back. Patient states also been short of breath but he states his baseline is normally short of breath. Patient states he doesn't believe the shortness of breath is worsened normal. Patient states she does have a history of atrial fibrillation is on a blood thinner. Patient states the pain and discomfort started about 2:00. Patient went to an urgent care they did an EKG and heart was 150 beats a minute so they called EMS and the patient here. Patient denies any recent fever chills or cough per patient denies abdominal pain. Patient denies any calf tenderness or leg swelling. Patient denies any other problems at this time. - Related Data Home Medications Medication Instructions Recorded Confirmed Atorvastatin [Lipitor] 80 mg PO DAILY 12/21/15 12/14/21 Warfarin Sodium [Coumadin] 5 mg PO SUTUTHSA 02/01/16 12/14/21 Primidone [Mysoline] 200 mg PO HS 08/16/18 12/14/21 Pyridostigmine [place] [Mestinon] 60 mg PO QID 08/16/18 12/14/21 metFORMIN HCL ER [Glucophage XR] 500 mg PO DAILY 08/16/18 12/14/21 Mexiletine HCl 150 mg PO BID 12/14/21 12/14/21 Warfarin Sodium 7.5 mg PO MOWEFR 12/14/21 12/14/21 carvediloL 25 mg PO BID 12/14/21 12/14/21 Previous Rx's Medication Instructions Recorded Furosemide [Lasix] 20 mg PO DAILY #30 tab 04/26/19 Potassium Chloride ER [K-Dur 20] 20 meq PO DAILY #30 tab.er.prt 04/26/19 Spironolactone [Aldactone] 25 mg PO DAILY #30 tab 04/26/19 lisinopriL [Zestril] 20 mg PO BID #0 tab 04/26/19 Allergies Allergy/AdvReac Type Severity Reaction Status Date / Time mayonnaise AdvReac Vomiting Verified 12/14/21 16:52 SOUR CREAM AdvReac Vomiting Uncoded 06/27/19 18:35 Review of Systems ROS Statement: Those systems with pertinent positive or pertinent negative responses have been documented in the HPI. ROS Other: All systems not noted in ROS Statement are negative. Past Medical History Past Medical History: Atrial Fibrillation, COPD, CVA/TIA, Diabetes Mellitus, Eye Disorder, Hearing Disorder / Deafness, Hyperlipidemia, Hypertension, Memory Impairment, Musculoskeletal Disorder, Neurologic Disorder, Prostate Disorder Additional Past Medical History / Comment(s): CARDIAC ARREST IN 2008, MYASTHENIA GRAVIS. tremors, HX Iron deficiency Anemia. New Onset A-Fib 12/2015. Hiatal Hernia. POSS TIA YEARS AGO. BPH. Last Myocardial Infarction Date:: 2008 History of Any Multi-Drug Resistant Organisms: None Reported Past Surgical History: Appendectomy, Cholecystectomy, Heart Catheterization With Stent Additional Past Surgical History / Comment(s): Defbrilator implanted 06/04 HEMORROIDECTOMY. EGD/Colonoscopy. STENTS X2. RIA, CARDIOVERSION, cataract surg. August 2016 Past Anesthesia/Blood Transfusion Reactions: No Reported Reaction Date of Last Stent Placement:: 2008 Past Psychological History: No Psychological Hx Reported Smoking Status: Never smoker Past Alcohol Use History: Rare Past Drug Use History: None Reported - Past Family History Father Family Medical History: Cancer Additional Family Medical History / Comment(s): bone cancer. Mother Additional Family Medical History / Comment(s): when pt was born. Daughter(s) Family Medical History: Cancer General Exam - General Exam Comments Initial Comments: GENERAL: Patient is well-developed and well-nourished. Patient is nontoxic and well- hydrated and is in mild distress. ENT: Neck is soft and supple. No significant lymphadenopathy is noted. Oropharynx is clear. Moist mucous membranes. Neck has full range of motion without eliciting any pain. EYES: The sclera were anicteric and conjunctiva were pink and moist. Extraocular movements were intact and pupils were equal round and reactive to light. Eyelids were unremarkable. PULMONARY: Unlabored respirations. Good breath sounds bilaterally. No audible rales rhonchi or wheezing was noted. CARDIOVASCULAR: Patient is tachycardic at 150 beats a minute. ABDOMEN: Soft and nontender with normal bowel sounds. SKIN: Skin is clear with no lesions or rashes and otherwise unremarkable. NEUROLOGIC: Patient is alert and oriented x3. Cranial nerves II through XII are grossly intact. Motor and sensory are also intact. Normal speech, volume and content. Symmetrical smile. MUSCULOSKELETAL: Normal extremities with adequate strength and full range of motion. No lower extremity swelling or edema. No calf tenderness. LYMPHATICS: No significant lymphadenopathy is noted PSYCHIATRIC: Normal psychiatric evaluation. Limitations: no limitations Course Vital Signs 03/27/22 03/27/22 03/27/22 15:30 15:32 15:40 Temperature 98.5 F Pulse Rate 156 H Respiratory 20 42 H 22 Rate Blood Pressure 133/97 O2 Sat by Pulse 97 Oximetry 03/27/22 03/27/22 03/27/22 16:00 16:10 16:20 Temperature Pulse Rate 62 70 Respiratory 19 15 Rate Blood Pressure 100/74 119/72 129/70 O2 Sat by Pulse 95 95 Oximetry Medical Decision Making - Medical Decision Making I interpret EKG. EKG shows probable flutter at 154 bpm [place] interval 137 QRSs on nursing 70 QT interval 336 QTC is 423 per patient's EKG shows left bundle branch block. Patient was given Cardizem 10 mg IV push as well as started on a Cardizem drip. Shortly thereafter patient seemed to convert and another EKG was done EKG again was interpreted by me. EKG showed atrial flutter at 62 bpm QRS is 11 Q-T intervals 424 QTC is 431. Patient's EKG shows no ST segment elevation with some very minimal ST segment depression in V5 and V6. Chest x-ray was interpreted by me chest x-ray showed some small pleural effusions cardiomegaly a consistent signs of pulmonary edema I spoke with the [facility] agreed to admit the patient admitted the patient wrote admitting orders. This consult cardiology. Patient was continued on a Cardizem drip. - Lab Data Result diagrams: 03/27/22 15:40 03/27/22 15:40 Lab Results 03/27/22 03/27/22 03/27/22 Range/Units 15:40 15:40 15:40 WBC 7.4 (3.8-10.6) k/uL RBC 4.11 L (4.30-5.90) m/uL Hgb 12.6 L (13.0-17.5) gm/dL Hct 38.8 L (39.0-53.0) % MCV 94.4 (80.0-100.0) fL MCH 30.6 (25.0-35.0) pg MCHC 32.4 (31.0-37.0) g/dL RDW 13.9 (11.5-15.5) % Plt Count 347 (150-450) k/uL MPV 8.7 Neutrophils % 81 % Lymphocytes % 8 % Monocytes % 5 % Eosinophils % 3 % Basophils % 1 % Neutrophils # 6.0 (1.3-7.7) k/uL Lymphocytes # 0.6 L (1.0-4.8) k/uL Monocytes # 0.4 (0-1.0) k/uL Eosinophils # 0.2 (0-0.7) k/uL Basophils # 0.1 (0-0.2) k/uL Hypochromasia Moderate PT 27.4 H (9.0-12.0) sec INR 2.8 H (<1.2) APTT 34.0 H (22.0-30.0) sec Sodium 140 (137-145) mmol/L Potassium 4.5 (3.5-5.1) mmol/L Chloride 110 H (98-107) mmol/L Carbon Dioxide 23 (22-30) mmol/L Anion Gap 7 mmol/L BUN 23 H (9-20) mg/dL Creatinine 1.26 H (0.66-1.25) mg/dL Est GFR (CKD-EPI)AfAm 62 (>60 ml/min/1.73 sqM) Est GFR (CKD-EPI)NonAf 54 (>60 ml/min/1.73 sqM) Glucose 226 H (74-99) mg/dL Calcium 8.1 L (8.4-10.2) mg/dL Magnesium 1.9 (1.6-2.3) mg/dL Total Bilirubin 0.7 (0.2-1.3) mg/dL AST 37 (17-59) U/L ALT 29 (4-49) U/L Alkaline Phosphatase 192 H (38-126) U/L Troponin I (0.000-0.034) ng/mL NT-Pro-B Natriuret Pep pg/mL Total Protein 7.0 (6.3-8.2) g/dL Albumin 4.1 (3.5-5.0) g/dL 03/27/22 03/27/22 Range/Units 15:40 15:40 WBC (3.8-10.6) k/uL RBC (4.30-5.90) m/uL Hgb (13.0-17.5) gm/dL Hct (39.0-53.0) % MCV (80.0-100.0) fL MCH (25.0-35.0) pg MCHC (31.0-37.0) g/dL RDW (11.5-15.5) % Plt Count (150-450) k/uL MPV Neutrophils % % Lymphocytes % % Monocytes % % Eosinophils % % Basophils % % Neutrophils # (1.3-7.7) k/uL Lymphocytes # (1.0-4.8) k/uL Monocytes # (0-1.0) k/uL Eosinophils # (0-0.7) k/uL Basophils # (0-0.2) k/uL Hypochromasia PT (9.0-12.0) sec INR (<1.2) APTT (22.0-30.0) sec Sodium (137-145) mmol/L Potassium (3.5-5.1) mmol/L Chloride (98-107) mmol/L Carbon Dioxide (22-30) mmol/L Anion Gap mmol/L BUN (9-20) mg/dL Creatinine (0.66-1.25) mg/dL Est GFR (CKD-EPI)AfAm (>60 ml/min/1.73 sqM) Est GFR (CKD-EPI)NonAf (>60 ml/min/1.73 sqM) Glucose (74-99) mg/dL Calcium (8.4-10.2) mg/dL Magnesium (1.6-2.3) mg/dL Total Bilirubin (0.2-1.3) mg/dL AST (17-59) U/L ALT (4-49) U/L Alkaline Phosphatase (38-126) U/L Troponin I 0.015 (0.000-0.034) ng/mL NT-Pro-B Natriuret Pep 3170 pg/mL Total Protein (6.3-8.2) g/dL Albumin (3.5-5.0) g/dL Critical Care Time Critical Care Time: Yes Total Critical Care Time: 35 Disposition Clinical Impression: Atrial flutter with rapid ventricular response Disposition: ADMITTED IP TO THIS HOSP Referrals: Monica Grewal III, MD [Primary Care Provider] - 1-2 days Time of Disposition: 17:27
[2022-03-27] MEDS ORDERED: NITROGLYCERIN SL TABS 0.4 MG TAB SUBLINGUAL PRN (17:34)
[2022-03-27 21:38] LABS: Glucose,Whole Blood 182 mg/dL (70-110)
[2022-03-27] MEDS ORDERED: carvediloL 12.5 MG TAB PO STA (22:10)
[2022-03-27] MEDS ORDERED: lisinopriL 20 MG TAB PO STA (22:14)
[2022-03-28 06:10] LABS: Glucose,Whole Blood 133 mg/dL (70-110)
[2022-03-28] MEDS: INSULIN ASPART (NovoLOG) 100 UNIT/ML VIAL SQ SCH ×4 (06:13→20:18)
[2022-03-28] MEDS: carvediloL 12.5 MG TAB PO SCH ×2 (06:33→17:21)
[2022-03-28] MEDS: lisinopriL 20 MG TAB PO SCH ×2 (08:10→20:16)
[2022-03-28] MEDS ORDERED: ASPIRIN 325 MG TAB PO SCH (09:00)
[2022-03-28] MEDS: ASPIRIN 81 MG PO SCH (09:00)
[2022-03-28] MEDS: ATORVASTATIN 80 MG TAB PO SCH (09:40)
[2022-03-28] MEDS: SPIRONOLACTONE 25 MG TAB PO SCH (09:40)
[2022-03-28] MEDS ORDERED: NITROGLYCERIN SL TABS 0.4 MG TAB SUBLINGUAL PRN (09:41)
[2022-03-28] MEDS ORDERED: ALPRAZolam 0.5 MG TAB PO PRN (09:41)
[2022-03-28] MEDS ORDERED: ALPRAZolam 0.25 MG TAB PO PRN (09:41)
[2022-03-28] MEDS ORDERED: ATORVASTATIN 80 MG TAB PO STA (09:41)
[2022-03-28] MEDS ORDERED: ASPIRIN 325 MG TAB PO STA (09:41)
--- NOTE | 2022-03-28 10:14 | P.CRDCN ---
History of Present Illness Consult date: 03/28/22 Requesting physician: Ubaldo Oglesby Reason for Consult (text): Atrial Flutter w/RVR Chief complaint: bilateral arm pain History of present illness: This is a pleasant 81-year-old gentleman who follows with Dr. Jay in the office. He has a known history of ischemic cardiomyopathy, prior angioplasty of the LAD with chronic occlusion of the circumflex, chronic systolic heart failure, ventricular tachycardia status post AICD placement, myasthenia gravis, Parkinson's, permanent atrial fibrillation for which she is anticoagulated on warfarin. Presented to the emergency department due to complaints of bilateral arm pain that radiated into his upper back which reminded him of what he felt with his AK in 2005. Upon presentation EKG was read as atrial flutter with rapid ventricular response however upon further review it appears patient could have very likely been in ventricular tachycardia compared to an EKG from 2019. He denies receiving a shock from his ICD but heart rates were in the high 150s which could be below his therapy zone. Chest x-ray on admission with impression correlate for suspected CHF exacerbation. Patient does not appear to be in acute fluid overload. Laboratory values show hemoglobin of 12.6, INR 2.8, BUN 23, creatinine 1.26 which is at his baseline, troponins of an elevated at 0.015, 0.354 and 1.1. Upon examination he is resting comfortably in bed. He has had further episodes of nonsustained ventricular tachycardia noted on telemetry. He's had no further complaints of arm pain. He does complain of dyspnea on exertion but this is chronic and stable. He denies any palpitations, dizziness, lightheadedness or syncope. He's had no orthopnea, PND or edema. He is currently on lisinopril 20 mg by mouth twice a day, carvedilol 25 mg by mouth twice a day, warfarin, Aldactone 25 mg by mouth daily, Mestinon, Mysoline, furosemide 20 mg by mouth daily, atorvastatin 80 mg by mouth daily and mexilitine 150 mg by mouth twice a day. Past Medical History Past Medical History: Atrial Fibrillation, COPD, CVA/TIA, Diabetes Mellitus, Eye Disorder, Hearing Disorder / Deafness, Hyperlipidemia, Hypertension, Memory I mpairment, Musculoskeletal Disorder, Neurologic Disorder, Prostate Disorder Additional Past Medical History / Comment(s): CARDIAC ARREST IN 2008, MYASTHENIA GRAVIS. tremors, HX Iron deficiency Anemia. New Onset A-Fib 12/2015. Hiatal Hernia. POSS TIA YEARS AGO. BPH. Last Myocardial Infarction Date:: 2008 History of Any Multi-Drug Resistant Organisms: None Reported Past Surgical History: Appendectomy, Cholecystectomy, Heart Catheterization With Stent Additional Past Surgical History / Comment(s): Defbrilator implanted 06/04 HEMORROIDECTOMY. EGD/Colonoscopy. STENTS X2. RIA, CARDIOVERSION, cataract surg. August 2016 Past Anesthesia/Blood Transfusion Reactions: No Reported Reaction Date of Last Stent Placement:: 2008 Smoking Status: Former smoker - Past Family History Father Family Medical History: Cancer Additional Family Medical History / Comment(s): bone cancer. Mother Additional Family Medical History / Comment(s): when pt was born. Daughter(s) Family Medical History: Cancer Medications and Allergies Home Medications Medication Instructions Recorded Confirmed Type Atorvastatin [Lipitor] 80 mg PO DAILY 12/21/15 03/28/22 History Warfarin Sodium [Coumadin] 5 mg PO SUTUTHSA 02/01/16 03/28/22 History Primidone [Mysoline] 200 mg PO HS 08/16/18 03/28/22 History Pyridostigmine [place] [Mestinon] 60 mg PO QID 08/16/18 03/28/22 History metFORMIN HCL ER [Glucophage XR] 500 mg PO DAILY 08/16/18 03/28/22 History Furosemide [Lasix] 20 mg PO DAILY #30 tab 04/26/19 03/28/22 Rx Potassium Chloride ER [K-Dur 20] 20 meq PO DAILY #30 tab.er.prt 04/26/19 03/28/22 Rx Spironolactone [Aldactone] 25 mg PO DAILY #30 tab 04/26/19 03/28/22 Rx lisinopriL [Zestril] 20 mg PO BID #0 tab 04/26/19 03/28/22 Rx Mexiletine HCl 150 mg PO BID 12/14/21 03/28/22 History Warfarin Sodium 7.5 mg PO MOWEFR 12/14/21 03/28/22 History carvediloL 25 mg PO BID 12/14/21 03/28/22 History Allergies Allergy/AdvReac Type Severity Reaction Status Date / Time mayonnaise AdvReac Vomiting Verified 12/14/21 16:52 SOUR CREAM AdvReac Vomiting Uncoded 06/27/19 18:35 Physical Exam Vitals: Vital Signs Temp Pulse Pulse Resp BP BP Pulse Ox 03/28/22 07:46 97 03/28/22 03:38 97.7 F 73 16 151/69 91 L 03/28/22 00:00 97.5 F L 59 L 16 151/86 98 03/27/22 22:36 97.7 F 62 18 193/79 96 03/27/22 20:00 97.7 F 62 18 193/79 96 03/27/22 19:59 64 17 144/90 97 03/27/22 18:00 60 20 144/90 95 03/27/22 16:20 70 15 129/70 95 03/27/22 16:10 119/72 03/27/22 16:00 62 19 100/74 95 03/27/22 15:40 22 03/27/22 15:32 42 H 03/27/22 15:30 98.5 F 156 H 20 133/97 97 Intake and Output 03/27/22 03/28/22 03/28/22 22:59 06:59 14:59 Intake Total 118 1090 Balance 118 1090 Intake: Intake, IV Titration 10 Amount Diltiazem 125 mg In 10 Sodium Chloride 0.9% 100 ml @ 5 MG/HR 5 mls/hr IV .Q24H [facility] Rx#:[id number] Oral 118 1080 Other: Voiding Method Toilet Toilet Diaper Diaper Weight 81.647 kg PHYSICAL EXAMINATION: This is a 81-year-old gentleman in no apparent distress at the time of my examination. HEENT: Head is atraumatic, normocephalic. Pupils are equal, round. Sclerae anicteric. Conjunctivae are clear. Mucous membranes of the mouth are moist. Neck is supple. There is no elevated jugular venous pressure. No carotid bruit is heard. CHEST EXAMINATION: As reveal diminished air entry bilaterally. No wheezes rales or rhonchi. Respirations even and nonlabored. HEART EXAMINATION: Heart regular, positive S1 and S2. No S3. No S4. Soft systolic murmur. ABDOMEN: Soft, nontender. Bowel sounds are heard. No organomegaly noted. EXTREMITIES: 2+ peripheral pulses with no evidence of peripheral edema and no calf tenderness noted. NEUROLOGIC EXAMINATION: Patient is awake, alert and oriented x3. Results 03/27/22 15:40 03/27/22 15:40 Cardiac Enzymes 03/27/22 03/27/22 03/27/22 Range/Units 15:40 15:40 19:00 AST 37 (17-59) U/L Troponin I 0.015 0.354 H* (0.000-0.034) ng/mL 03/28/22 Range/Units 07:12 AST (17-59) U/L Troponin I 1.100 H* (0.000-0.034) ng/mL Coagulation 03/27/22 Range/Units 15:40 PT 27.4 H (9.0-12.0) sec APTT 34.0 H (22.0-30.0) sec CBC 03/27/22 Range/Units 15:40 WBC 7.4 (3.8-10.6) k/uL RBC 4.11 L (4.30-5.90) m/uL Hgb 12.6 L (13.0-17.5) gm/dL Hct 38.8 L (39.0-53.0) % Plt Count 347 (150-450) k/uL Comprehensive Metabolic Panel 03/27/22 Range/Units 15:40 Sodium 140 (137-145) mmol/L Potassium 4.5 (3.5-5.1) mmol/L Chloride 110 H (98-107) mmol/L Carbon Dioxide 23 (22-30) mmol/L BUN 23 H (9-20) mg/dL Creatinine 1.26 H (0.66-1.25) mg/dL Glucose 226 H (74-99) mg/dL Calcium 8.1 L (8.4-10.2) mg/dL AST 37 (17-59) U/L ALT 29 (4-49) U/L Alkaline Phosphatase 192 H (38-126) U/L Total Protein 7.0 (6.3-8.2) g/dL Albumin 4.1 (3.5-5.0) g/dL Current Medications Generic Name Dose Route Start Last Admin Trade Name Freq PRN Reason Stop Dose Admin Aspirin 81 mg 03/28/22 09:00 Aspirin 81 Mg PO DAILY [facility] Carvedilol 25 mg 03/28/22 07:30 03/28/22 06:33 Carvedilol 12.5 Mg Tab PO 25 mg BID-W/MEALS [facility] Administration Insulin Aspart 0 unit 03/28/22 07:30 03/28/22 06:13 Insulin Aspart (Novolog) 100 Unit/Ml Vial SQ Not Given ACHS [facility] Protocol Lisinopril 20 mg 03/28/22 09:00 03/28/22 08:10 Lisinopril 20 Mg Tab PO 20 mg BID [facility] Administration Nitroglycerin 0.4 mg 03/27/22 17:34 Nitroglycerin Sl Tabs 0.4 Mg Tab SUBLINGUAL Q5M PRN Chest Pain Primidone 200 mg 03/28/22 21:00 Primidone 50 Mg Tab PO DAILY [facility] Intake and Output 03/27/22 03/28/22 03/28/22 22:59 06:59 14:59 Intake Total 118 1090 Balance 118 1090 Intake: Intake, IV Titration 10 Amount Diltiazem 125 mg In 10 Sodium Chloride 0.9% 100 ml @ 5 MG/HR 5 mls/hr IV .Q24H [facility] Rx#:[id number] Oral 118 1080 Other: Voiding Method Toilet Toilet Diaper Diaper Weight 81.647 kg 03/27/22 15:40 03/27/22 15:40 Assessment and Plan Assessment: #1 symptoms of bilateral arm pain with evidence of ventricular tachycardia on EKG with troponin elevation #2 CAD with prior angioplasty of LAD and known chronic occlusion of the circumflex #3 permanent atrial fibrillation, and circulated on warfarin #4 ischemic cardiomyopathy most recent EF 45-50% on an echocardiogram from 2020 #5 hypertension #6 hyperlipidemia #7 diabetes mellitus type 2 #8 myasthenia gravis #9 Parkinson's Plan: From cardiology's perspective we will obtain a 2-D echo with Doppler study to assess cardiac structure and function. We will hold warfarin in anticipation of cardiac catheterization to be done tomorrow. Recheck INR and renal function in the morning. We will have the ICD interrogated. We will continue to follow the patient and provide further recommendations accordingly. G[employer]ATIONS [employer]OCIATE note has been reviewed, I agree with a documented findings and plan of care. Patient was seen and examined.
[2022-03-28] MEDS: MEXILETINE 150 MG CAP PO SCH ×2 (10:49→20:18)
[2022-03-28 10:54] LABS: Chol/HDL Ratio 2.54 Ratio; LDL Cholesterol,Calculated 56.1 mg/dL (0.0-131.0); VLDL Calculation 16.62 mg/dL (5.00-40.00)
[2022-03-28 11:41] LABS: Glucose,Whole Blood 343 mg/dL (70-110)
[2022-03-28 12:02] LABS: INR 2.4 (<1.2); Prothrombin Time 23.5 sec (9.0-12.0)
[2022-03-28] MEDS: PYRIDOSTIGMINE 60 MG TAB PO SCH ×3 (12:02→20:16)
[2022-03-28] MEDS ORDERED: METOPROLOL TARTRATE 5 MG/5 ML VIAL IVP STA ×2 (14:03→14:39)
--- NOTE | 2022-03-28 14:08 | P.HPIM ---
History of Present Illness H&P Date: 03/28/22 This is an 81 year old male with medical history of atrial fibrillation, COPD, diabetes, stroke, hypertension, previous PCI x 3, has AICD, heart failure presents to the emergency room with complaints of arm pain with radiation to the back which began around 2 pm yesterday. He had an EKG completed at urgent care and was found to have heart rate of 150s, he was then brought to the emergency center by EMS. Denies cough, fever. Short of breath at baseline. He is anticoagulated with warfarin. Chest xray on admission showing small bilateral pleural effusions correlate for possible CHF exacerbation. Evidence of ventricular tachycardia on EKG. Blood pressure on admission 193/79. Patient is admitted to telemetry and cardiology has been consulted. Patient received IV cardizem bolus and gtt and heart rate has improved to 60-70s bpm. Blood pressure has improved to 151/69. Creatinine is slightly elevated at 1.26, INR 2.8. Patient has troponin elevation at 0.354, 1.100. He does appear to be in fluid overload. Chest pain has resolved at this time. ICD will be interrogated, Echocardiogram has been ordered. Plan is for cardiac catheterization tomorrow. REVIEW OF SYSTEMS: CONSTITUTIONAL: No fever, no malaise, no fatigue. HEENT: No recent visual problems or hearing problems. Denied any sore throat. CARDIOVASCULAR: No chest pain, orthopnea, PND, no palpitations, no syncope. PULMONARY: No shortness of breath, no cough, no hemoptysis. GASTROINTESTINAL: No diarrhea, no nausea, no vomiting, no abdominal pain. NEUROLOGICAL: No headaches, no weakness, no numbness. HEMATOLOGICAL: Denies any bleeding or petechiae. GENITOURINARY: Denies any burning micturition, frequency, or urgency. MUSCULOSKELETAL/RHEUMATOLOGICAL: Mild bilateral lower extremity edema. ENDOCRINE: Denies any polyuria or polydipsia. The rest of the 14-point review of systems is negative. PHYSICAL EXAMINATION: GENERAL: The patient is alert and oriented x3, not in any acute distress. Well developed, well nourished. HEENT: Pupils are round and equally reacting to light. EOMI. No scleral icterus. No conjunctival pallor. Normocephalic, atraumatic. No pharyngeal erythema. No thyromegaly. CARDIOVASCULAR: S1 and S2 present. No murmurs, rubs, or gallops. PULMONARY: Chest is clear to auscultation, no wheezing or crackles. ABDOMEN: Soft, nontender, nondistended, normoactive bowel sounds. No palpable organomegaly. MUSCULOSKELETAL: No joint swelling or deformity. EXTREMITIES: No cyanosis, clubbing, or pedal edema. NEUROLOGICAL: Gross neurological examination did not reveal any focal deficits. SKIN: No rashes. Assessment and Plan Assessment Bilateral arm pain with radiation to the back Troponin elevation rule out ACS cardiology on consultation Permanent Atrial fibrillation with rapid ventricular rate on admission Hypertension with urgency, improving Acute renal injury mostly prerenal Diabetes Mellitus Iron deficiency anemia History ischemic cardiomyopathy Chronic systolic heart failure History COPD History TIA years ago History hyperlipidemia Cardiac arrest in 2008 History v.tach with AICD Coronary artery disease with prior PCI History myasthenia gravis Parkinson's Former smoker GI prophylaxis DVT prophylaxis Full Code Plan Resume appropriate home medications Echocardiogram pending TSH pending Cardiology consultation ICD interrogation and cardiac catheterization planned for tomorrow PT/OT consultation The impression and plan of care has been dictated by Asia Velasquez Nurse Practitioner as directed. Dr. Juan Alberto MD I have performed a history and physical examination and medical decision making of this patient, discussed the same with the dictator, and agree with the dictators assessment and plan as written, documented as a scribe. Based on total visit time, I have performed more than 50% of this visit. Past Medical History Past Medical History: Atrial Fibrillation, COPD, CVA/TIA, Diabetes Mellitus, Eye Disorder, Hearing Disorder / Deafness, Hyperlipidemia, Hypertension, Memory Impairment, Musculoskeletal Disorder, Neurologic Disorder, Prostate Disorder Additional Past Medical History / Comment(s): CARDIAC ARREST IN 2008, MYASTHENIA GRAVIS. tremors, HX Iron deficiency Anemia. New Onset A-Fib 12/2015. Hiatal Hernia. POSS TIA YEARS AGO. BPH. Last Myocardial Infarction Date:: 2008 History of Any Multi-Drug Resistant Organisms: None Reported Past Surgical History: Appendectomy, Cholecystectomy, Heart Catheterization With Stent Additional Past Surgical History / Comment(s): Defbrilator implanted 06/04 HEMORROIDECTOMY. EGD/Colonoscopy. STENTS X2. RIA, CARDIOVERSION, cataract surg. August 2016 Past Anesthesia/Blood Transfusion Reactions: No Reported Reaction Date of Last Stent Placement:: 2008 Smoking Status: Former smoker - Past Family History Father Family Medical History: Cancer Additional Family Medical History / Comment(s): bone cancer. Mother Additional Family Medical History / Comment(s): when pt was born. Daughter(s) Family Medical History: Cancer Medications and Allergies Home Medications Medication Instructions Recorded Confirmed Type Atorvastatin [Lipitor] 80 mg PO DAILY 12/21/15 03/28/22 History Warfarin Sodium [Coumadin] 5 mg PO SUTUTHSA 02/01/16 03/28/22 History Primidone [Mysoline] 250 mg PO HS 08/16/18 03/28/22 History Pyridostigmine [place] [Mestinon] 60 mg PO 5XD 08/16/18 03/28/22 History metFORMIN HCL ER [Glucophage XR] 500 mg PO BID 08/16/18 03/28/22 History Furosemide [Lasix] 20 mg PO DAILY #30 tab 04/26/19 03/28/22 Rx Potassium Chloride ER [K-Dur 20] 20 meq PO DAILY #30 tab.er.prt 04/26/19 03/28/22 Rx lisinopriL [Zestril] 20 mg PO BID #0 tab 04/26/19 03/28/22 Rx Mexiletine HCl 150 mg PO Q8H 12/14/21 03/28/22 History Warfarin Sodium 7.5 mg PO MOWEFR 12/14/21 03/28/22 History carvediloL 25 mg PO BID 12/14/21 03/28/22 History Mv-Mn/Om3/Dha/Epa/Fish/Lut/Shannen 1 cap PO DAILY 03/28/22 03/28/22 History [Ocuvite Adult 50 Plus Softgel] Spironolactone 12.5 mg PO DAILY 03/28/22 03/28/22 History Allergies Allergy/AdvReac Type Severity Reaction Status Date / Time mayonnaise AdvReac Vomiting Verified 12/14/21 16:52 SOUR CREAM AdvReac Vomiting Uncoded 06/27/19 18:35 Physical Exam Vitals: Vital Signs Temp Pulse Pulse Resp BP BP Pulse Ox 03/28/22 07:46 97 03/28/22 03:38 97.7 F 73 16 151/69 91 L 03/28/22 00:00 97.5 F L 59 L 16 151/86 98 03/27/22 22:36 97.7 F 62 18 193/79 96 03/27/22 20:00 97.7 F 62 18 193/79 96 03/27/22 19:59 64 17 144/90 97 03/27/22 18:00 60 20 144/90 95 03/27/22 16:20 70 15 129/70 95 03/27/22 16:10 119/72 03/27/22 16:00 62 19 100/74 95 03/27/22 15:40 22 03/27/22 15:32 42 H 03/27/22 15:30 98.5 F 156 H 20 133/97 97 Intake and Output 03/27/22 03/28/22 03/28/22 22:59 06:59 14:59 Intake Total 118 1090 Balance 118 1090 Intake: Intake, IV Titration 10 Amount Diltiazem 125 mg In 10 Sodium Chloride 0.9% 100 ml @ 5 MG/HR 5 mls/hr IV .Q24H [facility] Rx#:[id number] Oral 118 1080 Other: Voiding Method Toilet Toilet Diaper Diaper Weight 81.647 kg Results CBC & Chem 7: 03/27/22 15:40 03/27/22 15:40 Labs: Abnormal Lab Results - Last 24 Hours (Table) 03/27/22 03/27/22 03/27/22 Range/Units 15:40 15:40 15:40 RBC 4.11 L (4.30-5.90) m/uL Hgb 12.6 L (13.0-17.5) gm/dL Hct 38.8 L (39.0-53.0) % Lymphocytes # 0.6 L (1.0-4.8) k/uL PT 27.4 H (9.0-12.0) sec INR 2.8 H (<1.2) APTT 34.0 H (22.0-30.0) sec Chloride 110 H (98-107) mmol/L BUN 23 H (9-20) mg/dL Creatinine 1.26 H (0.66-1.25) mg/dL Glucose 226 H (74-99) mg/dL POC Glucose (mg/dL) (70-110) mg/dL Calcium 8.1 L (8.4-10.2) mg/dL Alkaline Phosphatase 192 H (38-126) U/L Troponin I (0.000-0.034) ng/mL 03/27/22 03/27/22 03/28/22 Range/Units 19:00 21:36 06:09 RBC (4.30-5.90) m/uL Hgb (13.0-17.5) gm/dL Hct (39.0-53.0) % Lymphocytes # (1.0-4.8) k/uL PT (9.0-12.0) sec INR (<1.2) APTT (22.0-30.0) sec Chloride (98-107) mmol/L BUN (9-20) mg/dL Creatinine (0.66-1.25) mg/dL Glucose (74-99) mg/dL POC Glucose (mg/dL) 182 H 133 H (70-110) mg/dL Calcium (8.4-10.2) mg/dL Alkaline Phosphatase (38-126) U/L Troponin I 0.354 H* (0.000-0.034) ng/mL 03/28/22 Range/Units 07:12 RBC (4.30-5.90) m/uL Hgb (13.0-17.5) gm/dL Hct (39.0-53.0) % Lymphocytes # (1.0-4.8) k/uL PT (9.0-12.0) sec INR (<1.2) APTT (22.0-30.0) sec Chloride (98-107) mmol/L BUN (9-20) mg/dL Creatinine (0.66-1.25) mg/dL Glucose (74-99) mg/dL POC Glucose (mg/dL) (70-110) mg/dL Calcium (8.4-10.2) mg/dL Alkaline Phosphatase (38-126) U/L Troponin I 1.100 H* (0.000-0.034) ng/mL Thrombosis Risk Factor Assmnt - Choose All That Apply Any of the Below Risk Factors Present?: Yes Each Factor Represents 1 point: Obesity (BMI >25) Other Risk Factors: Yes Each Risk Factor Represents 3 Points: Age 75 years or older Other congenital or acquired thrombophilia - If yes, enter type in comment: No Thrombosis Risk Factor Assessment Total Risk Factor Score: 4 Thrombosis Risk Factor Assessment Level: Moderate Risk Assessment and Plan Time with Patient: Greater than 30
[2022-03-28] MEDS ORDERED: DEXTROSE 5% IN WATER 100 ML with AMIODARONE 150 MG IV ONE (14:20)
[2022-03-28] MEDS ORDERED: AMIODARONE 360 MG in DEXTROSE 5% IN WATER 200 ML IV ONE ×2 (14:30)
[2022-03-28 17:05] LABS: Glucose,Whole Blood 130 mg/dL (70-110)
[2022-03-28 20:06] LABS: Glucose,Whole Blood 193 mg/dL (70-110)
[2022-03-28] MEDS: PRIMIDONE 50 MG TAB PO SCH (20:16)
[2022-03-28] MEDS ORDERED: PRIMIDONE 50 MG TAB PO SCH (21:00)
[2022-03-28] MEDS: AMIODARONE 450 MG in DEXTROSE 5% IN WATER 250 ML IV SCH ×2 (21:22)
[2022-03-29 06:12] LABS: Glucose,Whole Blood 162 mg/dL (70-110)
[2022-03-29] MEDS: carvediloL 12.5 MG TAB PO SCH ×2 (06:27→17:11)
[2022-03-29] MEDS: ATORVASTATIN 80 MG TAB PO SCH (06:27)
[2022-03-29] MEDS: lisinopriL 20 MG TAB PO SCH ×2 (06:28→20:34)
[2022-03-29] MEDS ORDERED: HEPARIN SODIUM,PORCINE 10,000 UNIT in SODIUM CHLORIDE 0.9% 1,000 ML IRRIGATION PRN (07:00)
[2022-03-29] MEDS ORDERED: HEPARIN SODIUM,PORCINE 2,500 UNIT in SODIUM CHLORIDE 0.9% 250 ML IRRIGATION PRN (07:00)
[2022-03-29 09:14] LABS: INR 1.8 (<1.2); Prothrombin Time 17.7 sec (9.0-12.0)
[2022-03-29 09:23] LABS: Calcium 8.1 mg/dL (8.4-10.2)
[2022-03-29] MEDS: INSULIN ASPART (NovoLOG) 100 UNIT/ML VIAL SQ SCH ×4 (09:49→20:34)
[2022-03-29] MEDS ORDERED: VERAPAMIL 2.5 MG/ML 2 ML AMP ONE (10:26)
[2022-03-29] MEDS ORDERED: fentaNYL (PF) 50 MCG/ML 2 ML AMP ONE (10:26)
[2022-03-29] MEDS ORDERED: HEPARIN SODIUM 1,000 UN/ML (10ML VL) ONE (10:26)
[2022-03-29] MEDS ORDERED: IV FLUID CONTINUATION 1,000 ML IV ONE (10:50)
[2022-03-29] MEDS ORDERED: ASPIRIN 81 MG ONE (10:58)
[2022-03-29] MEDS ORDERED: MIDAZOLAM 2 MG/2 ML VIAL IV ONE (11:00)
[2022-03-29] MEDS ORDERED: ASPIRIN 81 MG PO ONE (11:00)
[2022-03-29] MEDS ORDERED: fentaNYL (PF) 50 MCG/ML 2 ML AMP IV ONE (11:00)
[2022-03-29] MEDS ORDERED: LIDOCAINE 1% INJ 10MG/ML (5 ML VIAL-PF) SQ ONE (11:01)
[2022-03-29] MEDS ORDERED: VERAPAMIL SYRINGE (5 MG/10 ML) INTRAARTER ONE (11:03)
[2022-03-29] MEDS ORDERED: IOPAMIDOL-370 125ML BTL INJ ONE (11:27)
[2022-03-29 11:49] LABS: Glucose,Whole Blood 152 mg/dL (70-110)
[2022-03-29] MEDS: ASPIRIN 81 MG PO SCH (11:55)
[2022-03-29] MEDS: AMIODARONE 200 MG TAB PO SCH ×2 (13:13→20:35)
[2022-03-29] MEDS: SPIRONOLACTONE 25 MG TAB PO SCH (13:16)
[2022-03-29] MEDS: PYRIDOSTIGMINE 60 MG TAB PO SCH ×4 (13:16→20:34)
[2022-03-29] MEDS: MEXILETINE 150 MG CAP PO SCH ×2 (13:16→20:34)
[2022-03-29] MEDS: AMIODARONE 450 MG in DEXTROSE 5% IN WATER 250 ML IV SCH ×2 (14:34)
[2022-03-29] MEDS ORDERED: RX INFO: IV CONTRAST WAS GIVEN 1 EACH MISC MISCELLANE PRN (14:41)
[2022-03-29] MEDS ORDERED: SODIUM CHLORIDE 0.9% 1,000 ML IV SCH (14:45)
--- NOTE | 2022-03-29 15:46 | P.PN ---
Subjective Progress Note Date: 03/29/22 This is an 81 year old male with medical history of atrial fibrillation, COPD, diabetes, stroke, hypertension, previous PCI x 3, has AICD, heart failure presents to the emergency room with complaints of arm pain with radiation to the back which began around 2 pm yesterday. He had an EKG completed at urgent care and was found to have heart rate of 150s, he was then brought to the emergency center by EMS. Denies cough, fever. Short of breath at baseline. He is anticoagulated with warfarin. Chest xray on admission showing small bilateral pleural effusions correlate for possible CHF exacerbation. Evidence of ventricular tachycardia on EKG. Blood pressure on admission 193/79. Patient is admitted to telemetry and cardiology has been consulted. Patient received IV cardizem bolus and gtt and heart rate has improved to 60-70s bpm. Blood pressure has improved to 151/69. Creatinine is slightly elevated at 1.26, INR 2.8. Patient has troponin elevation at 0.354, 1.100. He does appear to be in fluid overload. Chest pain has resolved at this time. ICD will be interrogated, Echocardiogram has been ordered. Plan is for cardiac catheterization tomorrow. 03/29/2022 Patient is evaluated today status post cardiac catheterization with right radial approach. Per nursing cath was reported as clear. Patient reports that arm pain and back pain have resolved. Currently denying chest pain, no shortness of damir th. He will be optimized medically. He did have an episode of tachyarrythmia in the 150s yesterday afternoon and was placed on amiodarone gtt which is currently off. Echocardiogram is currently pending at this time. Further medication recommendations pending. Review of Systems Constitutional: Denied any fatigue denied any fever. Cardio vascular: denied any chest pain, palpitations Gastrointestinal: denied any nausea, vomiting, diarrhea Pulmonary: Denied any shortness of breath cough Neurologic denied any new focal deficits All inpatient medications were reviewed and appropriate changes in these medications as dictated in the interval history and assessment and plan. PHYSICAL EXAMINATION: GENERAL: The patient is alert and oriented x3, not in any acute distress. Well developed, well nourished. HEENT: Pupils are round and equally reacting to light. EOMI. No scleral icterus. No conjunctival pallor. Normocephalic, atraumatic. No pharyngeal erythema. No thyromegaly. CARDIOVASCULAR: S1 and S2 present. No murmurs, rubs, or gallops. PULMONARY: Chest is clear to auscultation, no wheezing or crackles. ABDOMEN: Soft, nontender, nondistended, normoactive bowel sounds. No palpable organomegaly. MUSCULOSKELETAL: No joint swelling or deformity. EXTREMITIES: No cyanosis, clubbing, or pedal edema. NEUROLOGICAL: Gross neurological examination did not reveal any focal deficits. SKIN: No rashes. Assessment and Plan Assessment Bilateral arm pain with radiation to the back Troponin elevation rule out ACS cardiology on consultation Permanent Atrial fibrillation with rapid ventricular rate on admission Hypertension with urgency, improving Acute renal injury mostly prerenal Diabetes Mellitus Iron deficiency anemia History ischemic cardiomyopathy Chronic systolic heart failure History COPD History TIA years ago History hyperlipidemia Cardiac arrest in 2009 History v.tach with AICD Coronary artery disease with prior PCI History myasthenia gravis Parkinson's Former smoker GI prophylaxis DVT prophylaxis Full Code Plan Resume appropriate home medications Echocardiogram pending TSH pending Cardiology consultation Status post cardiac catheterization with no intervention Pending further medication adjustments by cardiology Possible D/C in the next 24 hours. The impression and plan of care has been dictated by Asia Velasquez Nurse Practitioner as directed. Dr. Juan Alberto MD I have performed a history and physical examination and medical decision making of this patient, discussed the same with the dictator, and agree with the dictators assessment and plan as written, documented as a scribe. Based on total visit time, I have performed more than 50% of this visit. Objective - Vital Signs Vital signs: Vital Signs Temp 97.8 F 03/29/22 08:00 Pulse 71 03/29/22 08:00 Resp 16 03/29/22 08:00 BP 171/78 03/29/22 08:00 Pulse Ox 98 03/29/22 08:00 FiO2 Intake & Output 03/28/22 03/29/22 03/29/22 18:59 06:59 18:59 Intake Total 100 Balance 100 Intake: IV 100 Other: Voiding Method Toilet Toilet Diaper Diaper # Voids 2 2 - Labs CBC & Chem 7: 03/27/22 15:40 03/29/22 07:28 Labs: Abnormal Lab Results - Last 24 Hours (Table) 03/28/22 03/28/22 03/29/22 Range/Units 17:03 20:04 06:05 PT (9.0-12.0) sec INR (<1.2) Chloride (98-107) mmol/L Carbon Dioxide (22-30) mmol/L BUN (9-20) mg/dL Glucose (74-99) mg/dL POC Glucose (mg/dL) 130 H 193 H 162 H (70-110) mg/dL Calcium (8.4-10.2) mg/dL 03/29/22 03/29/22 03/29/22 Range/Units 07:28 07:28 11:47 PT 17.7 H (9.0-12.0) sec INR 1.8 H (<1.2) Chloride 112 H (98-107) mmol/L Carbon Dioxide 20 L (22-30) mmol/L BUN 25 H (9-20) mg/dL Glucose 145 H (74-99) mg/dL POC Glucose (mg/dL) 152 H (70-110) mg/dL Calcium 8.1 L (8.4-10.2) mg/dL Assessment and Plan Time with Patient: Less than 30
[2022-03-29 16:32] LABS: Glucose,Whole Blood 157 mg/dL (70-110)
[2022-03-29] MEDS ORDERED: WARFARIN 7.5 MG TAB PO ONE (18:00)
--- NOTE | 2022-03-29 19:53 | P.EPCON ---
Electrophysiology Consult - EP Consult Electrophysiology Consult: This is Dr. Black dictating a consult on this patient The patient was interviewed and examined IMPRESSION / ASSESSMENT: Sustained monomorphic ventricular tachycardia below the detection rate for the ICD is currently programmed Inferior septal exit History of intolerance to amiodarone and this was discontinued in the past, last year by Dr. Kohli Ischemic cardio myopathy coronary artery disease no progression of CAD Congestive heart failure class II, at least Myasthenia gravis Permanent atrial fibrillation PLAN: I had a detailed discussion with patient regarding EP study and radiofrequency ablation for slow ventricular tachycardia versus the role of and treatment drug therapy However the patient does not want to proceed with any ablation He states that his memory is failing him and his overweight he is of age and would rather choose medications for now At this time I'm not sure the problem was with amiodarone but I would quickly cut back to low-dose amiodarone if this is deemed okay for his primary physicians Continue mexiletine TSH is normal If he has breakthrough episodes on antiarrhythmic Therapy which is quite likely, the patient understands that he will then proceed with an EP study and ablation for scar base VT He understands the risks of the procedure including risk of stroke, cardiac puncture need for open heart surgery vascular injury My approach in his case would be via the right femoral vein, transseptal he across the mitral valve Obviously warfarin should NOT be stopped prior to the VT ablation if and when it would happen Add a detailed discussion regarding this with the patient and his daughter In terms of medical treatment one could also use a combination of sotalol along with mexiletine HPI 81-year-old male patient who came in complaining of arm pain radiates through to the back and palpitations He first went to the urgent care and twelve-lead EKG showed a wide complex tachycardia and he was sent to the ER In the ER twelve-lead EKG was performed which showed a wide complex tachycardia with a left bundle branch block morphology with a slurred downslope Q waves in the inferior leads transition between V1 and V2 Heart rate is 154 beats a minute He underwent coronary angiography which did not reveal any progression of coronary artery disease today He has persistent atrial fibrillation as his underlying rhythm According to Dr. Kohli, his intellectual property paralegal he has had ventricular tachycardia ostia in his chest with amiodarone Apparently there was some problem with amiodarone, I'm not clear about the exact issues with amiodarone but this was discontinued The patient does have myasthenia gravis He has a history of ischemic adenopathy stenting to the LAD Chronic occlusion of the left circumflex Chronic systolic heart failure AICD implantation past Pulmonary atrial fibrillation on warfarin He also states that he has a memory impairment and history of TIA ROS: No fever chills or rigors, no cough, phlegm or expectoration, no nausea, vomiting or diarrhea, no hematuria, dysuria, no musculoskeletal complaints, no strokes or seizures, no skin lesions. EXAMINATION: Blood pressure elevated 175/76. His mercury pulse rate in the 60s and 70s normal respirations No JVD Heart sounds S1 and S2 are soft No S3 gallop no JVD REVIEW OF LABS, ECG & MEDICAL DATA normal white count, hemoglobin 12.6, platelet count 347,000 Sodium 140, potassium 4.0 BUN 25 creatinine 1.25 LDL 56 TSH 0.69
[2022-03-29 20:05] LABS: Glucose,Whole Blood 174 mg/dL (70-110)
[2022-03-29] MEDS: PRIMIDONE 50 MG TAB PO SCH (20:34)
--- NOTE | 2022-03-29 22:35 | CC ---
CARDIAC CATHETERIZATION REPORT INDICATION: Acute liq-CB-pllwkzs elevation MS with ventricular tachycardia in a patient with known ischemic cardiomyopathy with status post prior episodes of VT. PROCEDURE NOTE: After obtaining informed consent, left heart catheterization and coronary angiogram were performed via the right radial artery using size 3.5 right and left Tyson catheters. Hemodynamics were obtained using the right Tyson catheter. The patient tolerated the procedure well without any obvious immediate complications. A TR band was placed for hemostasis. The patient was on Coumadin prior to coming in. INR this morning was 1.8. I explained to the patient that there is increased risk of bleeding, and I did not use any heparin during the procedure as a result. The patient received 5 mg of verapamil per protocol, and a TR band was used per protocol to obtain hemostasis. I obtained right radial artery access using modified Seldinger technique. A 6-Guyanese sheath was introduced into the right radial artery, and using the Glidewire, I manipulated the catheter into the ascending aorta, where I exchanged the catheters. The patient received moderate conscious sedation. Total sedation time was 25 minutes. FINDINGS: 1. Hemodynamics: Left ventricular end-diastolic pressure is 20 mm. There is no significant gradient across the aortic valve. 2. Left ventriculogram: Left ventriculogram was not performed. 3. Angiographic data: a.Left main coronary artery: Left main coronary artery appears calcified but is free of significant stenosis, divides into left anterior descending coronary artery and circumflex coronary artery. Circumflex coronary artery is totally occluded as it becomes the AV groove circ. The large caliber OM branch appears normal. There are extensive collaterals to the circ from the distal RCA. LAD was previously stented in the midportion. The stent itself appears patent. There is a 30% to 40% stenosis beyond the stent. b.Right coronary artery is a large dominant vessel that appears heavily calcified, and there is a tkle-vg-kjxbnsgs diffuse atherosclerotic plaque without any focal stenotic lesions. CONCLUSION: 1. Patent stent within the LAD. 2. Chronically occluded circumflex coronary artery with extensive bbllx-gv-uzxs collaterals. 3. Tobl-bv-lysuiwes nonobstructive disease involving right coronary artery. PLAN: I reviewed angiographic data with the patient and told him that his management is going to be with medical therapy and optimal treatment for his VT and if necessary to refer him for VT ablation. MMODL / IJN: [id number] /
[2022-03-30 03:08] VITALS: RESP 18
[2022-03-30 06:07] LABS: Glucose,Whole Blood 123 mg/dL (70-110)
[2022-03-30] MEDS: INSULIN ASPART (NovoLOG) 100 UNIT/ML VIAL SQ SCH (06:29)
[2022-03-30] MEDS: carvediloL 12.5 MG TAB PO SCH (06:29)
[2022-03-30] MEDS: PYRIDOSTIGMINE 60 MG TAB PO SCH ×2 (08:04→12:21)
[2022-03-30] MEDS: ATORVASTATIN 80 MG TAB PO SCH (08:05)
[2022-03-30] MEDS: SPIRONOLACTONE 25 MG TAB PO SCH (08:05)
[2022-03-30] MEDS: MEXILETINE 150 MG CAP PO SCH (08:05)
[2022-03-30] MEDS: ASPIRIN 81 MG PO SCH (08:05)
[2022-03-30] MEDS: lisinopriL 20 MG TAB PO SCH (08:05)
[2022-03-30 08:07] VITALS: BP 135/72; PULSE 72; TEMP 97.9
[2022-03-30 09:04] LABS: INR 1.5 (<1.2); Prothrombin Time 15.3 sec (9.0-12.0)
[2022-03-30 09:24] LABS: Potassium 4.4 mmol/L (3.5-5.1)
[2022-03-30 09:35] LABS: Calcium 8.1 mg/dL (8.4-10.2)
[2022-03-30] MEDS ORDERED: SOTALOL 80 MG TAB PO SCH (09:45)
--- NOTE | 2022-03-30 09:55 | P.PN ---
Subjective Progress Note Date: 03/30/22 PROGRESS NOTE The patient is an 9-year-old male with a history of CAD, atrial fibrillation who presented with bilateral arm discomfort and ventricular tachycardia. He underwent cardiac catheterization yesterday and had no evidence of significant progression of disease. He's feeling well this morning, denies any dizziness or palpitations or syncope. He denies any nausea or vomiting. He has been evalu ated by Dr. Black in the patient will be changed from amiodarone to sotalol because of prior side effects from amiodarone. The patient is reluctant to undergo ablation. He is ambulating and is anxious to go home today. Medications: Aspirin, Lipitor 80 mg daily, Coreg 25 mg twice a day, Zestril 20 mg twice a day, Mysoline, Aldactone 25 mg daily, Coumadin PHYSICAL EXAMINATION: Blood pressure 135/70 heart rate 70 LUNGS: Clear to auscultation HEART: Irregular rate and rhythm, S1, S2. No S3. systolic ejection murmur ABDOMEN: Soft, nontender, no organomegaly EXTREMETIES: No edema, right radial pulse intact LAB: INR 1.5, BUN 26, creatinine 1.34 IMPRESSION: 1. Recurrent ventricular tachycardia 2. History of CAD stable 3. Ischemic cardiomyopathy 4. Post ICD PLAN: 1. Start sotalol and start amiodarone 2. Continue anticoagulation 3. Increase physical activity 4. If stable discharged home today and follow-up with Dr. Jay Objective - Vital Signs Vital signs: Vital Signs Temp 97.9 F 03/30/22 08:07 Pulse 72 03/30/22 08:07 Resp 18 03/30/22 08:07 BP 135/72 03/30/22 08:07 Pulse Ox 97 03/30/22 08:07 FiO2 Intake & Output 03/29/22 03/30/22 03/30/22 18:59 06:59 18:59 Intake Total 340 600 118 Output Total 250 Balance 90 600 118 Intake: IV 100 Intake, IV Titration 150 Amount Sodium Chloride 0.9% 1, 150 000 ml @ 75 mls/hr IV . [id number] [facility] Rx#:[id number] Oral 240 450 118 Output: Urine 250 Other: Voiding Method Toilet Toilet Diaper Diaper # Voids 1 - Labs CBC & Chem 7: 03/27/22 15:40 03/30/22 06:43 Labs: Abnormal Lab Results - Last 24 Hours (Table) 03/29/22 03/29/22 03/29/22 Range/Units 11:47 16:28 20:03 PT (9.0-12.0) sec INR (<1.2) Chloride (98-107) mmol/L Carbon Dioxide (22-30) mmol/L BUN (9-20) mg/dL Creatinine (0.66-1.25) mg/dL Glucose (74-99) mg/dL POC Glucose (mg/dL) 152 H 157 H 174 H (70-110) mg/dL Calcium (8.4-10.2) mg/dL 03/30/22 03/30/22 03/30/22 Range/Units 06:05 06:43 06:43 PT 15.3 H (9.0-12.0) sec INR 1.5 H (<1.2) Chloride 111 H (98-107) mmol/L Carbon Dioxide 21 L (22-30) mmol/L BUN 26 H (9-20) mg/dL Creatinine 1.34 H (0.66-1.25) mg/dL Glucose 106 H (74-99) mg/dL POC Glucose (mg/dL) 123 H (70-110) mg/dL Calcium 8.1 L (8.4-10.2) mg/dL
[2022-03-30] MEDS: AMIODARONE 200 MG TAB PO SCH (10:35)
[2022-03-30 11:46] LABS: Glucose,Whole Blood 152 mg/dL (70-110)
--- NOTE | 2022-03-30 17:17 | CA ---
Transthoracic Echo Report Name: Rajeev Eagle Age: 81 Gender: M : 1940 Exam Date: 03/30/2022 11:43 Exam Location: [facility] Ht (in): 67 Wt (lb): 180 Ordering Physician: Blacna Neil Attending/Referring Phys: [id number], Rashaad Reconcilement Clerk Nicole Thorne RDCS Procedure CPT: Indications: cardiomyopathy Cardiac Hx: Technical Quality: Fair Contrast 1: Total Dose (mL): Contrast 2: Total Dose (mL): MEASUREMENTS (Male / Female) Normal Values 2D ECHO LV Diastolic Diameter PLAX 5.7 cm 4.2 - 5.9 / 3.9 - 5.3 cm LV Systolic Diameter PLAX 4.5 cm IVS Diastolic Thickness 1.2 cm 0.6 - 1.0 / 0.6 - 0.9 cm LVPW Diastolic Thickness 1.5 cm 0.6 - 1.0 / 0.6 - 0.9 cm LV Relative Wall Thickness 0.5 RV Internal Dim ED PLAX 3.8 cm LVOT Diameter 1.4 cm LA Volume 76.3 cm??? 18 - 58 / 22 - 52 cm??? M-MODE Aortic Root Diameter MM 3.1 cm LA Systolic Diameter MM 5.4 cm LA Ao Ratio MM 1.7 AV Cusp Separation MM 1.2 cm DOPPLER AV Peak Velocity 241.5 cm/s AV Peak Gradient 23.3 mmHg AV Mean Velocity 173.1 cm/s AV Mean Gradient 13.6 mmHg AV Velocity Time Integral 50.7 cm AI Peak Velocity 459.1 cm/s AI Peak Gradient 84.3 mmHg AI Pressure Half Time 377.9 ms LVOT Peak Velocity 72.0 cm/s LVOT Peak Gradient 2.1 mmHg LVOT Velocity Time Integral 17.0 cm LVOT Stroke Volume 27.8 cm??? LVOT Stroke Volume Index 14.4 ml/m??? LVOT Cardiac Index 882.5 cm???/min???m??? AV Area Cont Eq vti 0.5 cm??? AV Area Cont Eq pk 0.5 cm??? TR Peak Velocity 347.1 cm/s TR Peak Gradient 48.2 mmHg Right Ventricular Systolic Press 51.4 mmHg FINDINGS Left Ventricle Mildly increased left ventricular wall thickness. Reduced global left ventricular systolic function. Left ventricular ejection fraction is estimated at 35-40 %. Right Ventricle Mild right ventricular dilatation. Moderate to severe pulmonary hypertension. Right ventricular systolic pressure estimated at 51 mm hg. Right Atrium Moderate right atrial dilatation. Catheter/pacemaker wire in the right atrial cavity. Left Atrium Moderately increased left atrial volume. Mitral Valve Mitral valve thickened. Moderate mitral annular calcification. Uera-fi-qelwkjfu mitral regurgitation. Aortic Valve Mild aortic stenosis with a peak gradient of 2.4 mmHg and a mean gradient of 14 mmHg. Mild aortic regurgitation. Tricuspid Valve Ceimstnr-rv-iyexni tricuspid regurgitation. Pulmonic Valve Trace pulmonic regurgitation. Pericardium No pericardial effusion. Aorta Normal size aortic root and proximal ascending aorta. CONCLUSIONS Moderate to severe LV systolic dysfunction with an ejection fraction of 35-40% Basal and mid inferior wall hypokinesis suggestive of prior myocardial infarction Mild to moderate mitral regurgitation and mild aortic stenosis Moderate to severe tricuspid regurgitation Previewed by: Dr. Tae Jay MD (Electronically Signed) Final Date: 30 March 2022 17:16
[2022-03-30] MEDS ORDERED: WARFARIN 7.5 MG TAB PO SCH (18:00)
[2022-03-31] MEDS ORDERED: WARFARIN 5 MG TAB PO SCH (18:00)
--- NOTE | 2022-03-31 22:57 | P.DS ---
Providers Date of admission: 03/27/22 17:40 Attending physician: Ubaldo Oglesby Consults: 03/27/22 17:35 Consult Physician Urgent Consulting Provider: [facility] Consult Reason/Comments: Atrial flutter with rapid ventricular response Do you want consulting provider notified?: Yes Primary care physician: Monica Cook [facility] Course: Final Diagnosis Recurrent ventricular tachycardia Permanent Atrial fibrillation with rapid ventricular rate on admission Status post coronary angiography with no progression of his coronary artery disease Hypertension with urgency, improving Acute renal injury mostly prerenal Diabetes Mellitus Iron deficiency anemia Ischemic cardiomyopathy Chronic systolic heart failure History COPD History TIA years ago History hyperlipidemia Cardiac arrest in 2009 History v.tach with AICD Coronary artery disease with prior PCI, stable History myasthenia gravis Parkinson's Former smoker Full Code Discharge Disposition Patient is stable for discharge home with overall guarded prognosis. He has declined ablation at this time which was discussed secondary to recurrent ventricular tachycardia. He has been started on sotalol, amiodarone has been discontinued. Continue warfarin, aldactone increased. Cleared by cardiology for discharge. He will follow up with Dr. Jay in the office. He will need to repeat a BMP in 2 to 3 days. Hospital Course This is an 81 year old male with medical history of atrial fibrillation, COPD, diabetes, stroke, hypertension, previous PCI x 3, has AICD, heart failure presents to the emergency room with complaints of arm pain with radiation to the back with 1 day duration. He was evaluated at urgent care and was found to have heart rate of 150s with EKG showing wide complex tachycardia, he was then brought to the emergency center by EMS. Denies cough, fever. Short of breath at baseline. He is anticoagulated with warfarin. Chest xray on admission showing small bilateral pleural effusions correlate for possible CHF exacerbation. Evidence of ventricular tachycardia on EKG. Blood pressure on admission 193/79. Patient received IV cardizem bolus and gtt and heart rate improved to 60-70s bpm. Blood pressure has improved to 151/69. Creatinine is slightly elevated at 1.26, INR 2.8. Patient has troponin elevation at 0.354, 1.100. He does appear to be in fluid overload. Chest pain has resolved at this time. ICD was interrogated revealing episodes of ventricular tachycardia. Echocardiogram reveals moderate to severe LV function with EF 35 to 40%, basal and mid inferior hypokinesis suggestive of prior [place]. Moderate to severe tricuspid regurgitation. Patient underwent coronary angiography with right radial approach with reveals stable coronary artery disease with no progression. He was monitored overnight, medications adjusted. He was evaluated by Dr Black regarding ventricular tachycardia and has declined ablation at this time and cardiology recommending to discharge on mexiletine and sotalol. Patient agreeable to this and will follow up with cardiology on discharge. 03/30/2022 Patient is evaluated today, he has been up ambulating in the hallway. Underwent coronary angiography yesterday. No complaints of chest pain, no shortness of breath. He had EKG completed after being initiated on sotalol and reviewed by cardiology. Currently his lungs are clear, S1 S2 auscultated. His abdomen is soft and nontender. Focal neurological exam is negative. He is anxious for discharge today secondary to family wedding. INR today 1.5. Creatinine is bumped to 1.3 post cath. He is given repeat labs for 2 to 3 days time to check. Recommend to see his PCP in 1 to 2 days. Afebrile, heart rate 72, blood pressure 135/72, 97% room air. He is maintaining atrial fibrillation. Patient will be discharged with above mentioned recommendations and follow up. Total time taken in discharge planning greater than 35 minutes. Please see medication reconciliation for a list of current medication. Thank you for allowing us to participate in the care of this patient. The impression and plan of care has been dictated by Asia Velasquez, Nurse Practitioner as directed. Dr. Juan Alberto MD I have performed a history and physical examination and medical decision making of this patient, discussed the same with the dictator, and agree with the dictators assessment and plan as written, documented as a scribe. Based on total visit time, I have performed more than 50% of this visit. Patient Condition at Discharge: Fair Plan - Discharge Summary Discharge Rx Participant: No New Discharge Prescriptions: New Sotalol [Betapace] 80 mg PO BID #180 tab Aspirin 81 mg PO DAILY tab Spironolactone [Aldactone] 25 mg PO DAILY #30 tab Continue Atorvastatin [Lipitor] 80 mg PO DAILY Warfarin Sodium [Coumadin] 5 mg PO SUTUTHSA Pyridostigmine [place] [Mestinon] 60 mg PO 5XD metFORMIN HCL ER [Glucophage XR] 500 mg PO BID Primidone [Mysoline] 250 mg PO HS Potassium Chloride ER [K-Dur 20] 20 meq PO DAILY #30 tab.er.prt Furosemide [Lasix] 20 mg PO DAILY #30 tab lisinopriL [Zestril] 20 mg PO BID #0 tab Mv-Mn/Om3/Dha/Epa/Fish/Lut/Shannen [Ocuvite Adult 50 Plus Softgel] 1 cap PO DAILY Warfarin Sodium 7.5 mg PO MOWEFR Mexiletine HCl 150 mg PO Q8H carvediloL 25 mg PO BID Discontinued Spironolactone 12.5 mg PO DAILY Discharge Medication List Atorvastatin [Lipitor] 80 mg PO DAILY 12/21/15 [History] Warfarin Sodium [Coumadin] 5 mg PO SUTUTHSA 02/01/16 [History] Primidone [Mysoline] 250 mg PO HS 08/16/18 [History] Pyridostigmine [place] [Mestinon] 60 mg PO 5XD 08/16/18 [History] metFORMIN HCL ER [Glucophage XR] 500 mg PO BID 08/16/18 [History] Furosemide [Lasix] 20 mg PO DAILY #30 tab 04/26/19 [Rx] Potassium Chloride ER [K-Dur 20] 20 meq PO DAILY #30 tab.er.prt 04/26/19 [Rx] lisinopriL [Zestril] 20 mg PO BID #0 tab 04/26/19 [Rx] Mexiletine HCl 150 mg PO Q8H 12/14/21 [History] Warfarin Sodium 7.5 mg PO MOWEFR 12/14/21 [History] carvediloL 25 mg PO BID 12/14/21 [History] Mv-Mn/Om3/Dha/Epa/Fish/Lut/Shannen [Ocuvite Adult 50 Plus Softgel] 1 cap PO DAILY 03/28/22 [History] Aspirin 81 mg PO DAILY tab 03/30/22 [Rx] Sotalol [Betapace] 80 mg PO BID #180 tab 03/30/22 [Rx] Spironolactone [Aldactone] 25 mg PO DAILY #30 tab 03/30/22 [Rx] Follow up Appointment(s)/Referral(s): Monica Grewal III, MD [Primary Care Provider] - 1-2 days (Please call office to schedule follow up appoitment. ) Tae Jay MD [STAFF PHYSICIAN] - 1 Week (Office will call you to schedule follow up appoitment. ) Ambulatory/Diagnostic Orders: Basic Metabolic Panel [LAB.AMB] Time Frame: 3 Days, Location: None Selected Complete Blood Count w/diff [LAB.AMB] Time Frame: 3 Days, Location: None Selected Prothrombin Time INR [LAB.AMB] Time Frame: 04/02/22, Location: None Selected Patient Instructions/Handouts: Atrial Flutter (IP) Activity/Diet/Wound Care/Special Instructions: Patient is discharged home to follow up with cardiology Continue on medication changes including increased dose of aldactone and also new medication sotalol. Repeat labs in 2 to 3 days Return to [facility] if experiencing chest pain or shortness of breath Discharge Disposition: HOME SELF-CARE
--- NOTE | 2022-04-02 07:58 | CDI ---
Documentation Clarification Form Date: 04/02/2022 07:28:00 AM From: Kerrie Allan Admit Date: 03/27/2022 05:40:00 PM Patient Name: Rajeve Eagle Visit Number: [id number] Discharge Date: 03/30/2022 12:44:00 PM ATTENTION: The Clinical Documentation Specialists (CDI) and [facility] Coding Staff appreciate your assistance in clarifying documentation. Please respond to the clarification below the line at the bottom and electronically sign. The CDI & [facility] Coding staff will review the response and follow-up if needed. Please note: Queries are made part of the Legal Health Record. If you have any questions, please contact the author of this message via ITS. Dr. Helen Avendano Per cardiac cath indications Acute non-ST ([place]) with ventricular tachycardia is documented on 03/29 by cardiology. This diagnosis is not carried through chart. Additional clarification regarding if patient had an NSTEMI or was it ruled out is requested. History/Risk Factors: CAD Clinical Indicators: Troponin: .015, .354, 1.100 EKG Results: Atrial fib non specific T waves Abnormal EKG Treatment: Cardiac cath, Cardizem drip, Nitro, Aspirin, Heparin, Warfarin continued from home. Please clarify the type of [place], if known: [ x ] NSTEMI [ ] NSTEMI ruled out [ ] Unable to determine [ ] Other Condition, please specify MTDD
== END 2022-03-30 12:44 | disposition home or self-care (01) | DRG 281 ==
LOC: EC 15:23 → 3SCARD 17:40
PROVIDERS: ADMIT Hospitalist; ATTEND Hospitalist
PROC: 4A023N7 Measurement of Cardiac Sampling and Pressure, Left Heart, Percutaneous Approach (ICD-10-PCS; principal; 2022-03-29 09:00)
PROC: B2111ZZ Fluoroscopy of Multiple Coronary Arteries using Low Osmolar Contrast (ICD-10-PCS; principal; 2022-03-29 09:00)
DX: I21.4 Non-ST elevation (NSTEMI) myocardial infarction (principal); I47.20 Ventricular tachycardia, unspecified; I48.21 Permanent atrial fibrillation; I48.92 Unspecified atrial flutter; I50.22 Chronic systolic (congestive) heart failure; N17.9 Acute kidney failure, unspecified; D50.9 Iron deficiency anemia, unspecified; I44.7 Left bundle-branch block, unspecified; G20 Parkinson's disease; E78.5 Hyperlipidemia, unspecified; E11.9 Type 2 diabetes mellitus without complications; G70.00 Myasthenia gravis without (acute) exacerbation; H91.90 Unspecified hearing loss, unspecified ear; I11.0 Hypertensive heart disease with heart failure; I07.1 Rheumatic tricuspid insufficiency; I25.10 Atherosclerotic heart disease of native coronary artery without angina pectoris; E66.9 Obesity, unspecified; I25.2 Old myocardial infarction; I25.5 Ischemic cardiomyopathy; Z86.74 Personal history of sudden cardiac arrest; J44.9 Chronic obstructive pulmonary disease, unspecified; N40.0 Benign prostatic hyperplasia without lower urinary tract symptoms; Z79.01 Long term (current) use of anticoagulants; Z79.84 Long term (current) use of oral hypoglycemic drugs; Z79.899 Other long term (current) drug therapy; Z86.73 Personal history of transient ischemic attack (TIA), and cerebral infarction without residual deficits; Z87.891 Personal history of nicotine dependence; Z95.810 Presence of automatic (implantable) cardiac defibrillator; Z98.61 Coronary angioplasty status; Z68.28 Body mass index [BMI] 28.0-28.9, adult
CPT/HCPCS: 36415; 71046; 80048; 80053; 80061; 83735; 83880; 84443; 84484; 85025; 85610; 85730; 93005; 93306; 93458; 94760; 96374; 96376; 99291

== ENCOUNTER → 2022-04-02 | Outpatient (CLI) | payer MEDICARE ==
[2022-04-02 18:18] LABS: Basophils # (A) 0.06 X 10*3/uL (0.00-0.10); Eosinophils # (A) 0.25 X 10*3/uL (0.04-0.35); HCT 39.6 % (39.6-50.0); HGB 11.7 g/dL (13.0-17.0); Immature Grans, Automated 0.2 %; Lymphocytes # (A) 0.71 X 10*3/uL (0.90-5.00); Lymphocytes % (A) 11.3 %; MCH 29.1 pg (27.0-32.0); MCHC 29.5 g/dL (32.0-37.0); MCV 98.5 fL (80.0-97.0); Monocytes # (A) 0.75 X 10*3/uL (0.20-1.00); Monocytes % (A) 11.9 %; NRBC Per 100 WBC 0 /100 WBCS (0.0-0.0); Neutrophils % (A) 71.6 %; Platelet Count 290 X 10*3/uL (140-440); RBC 4.02 X 10*6/uL (4.40-5.60); RDW 14.5 % (11.5-14.5); WBC 6.28 X 10*3/uL (4.50-10.00)
[2022-04-02 18:59] LABS: African American GFR (CKD) 54.6 (60.0-200.0); Anion Gap 11.9 mmol/L (10.00-18.00); BUN/Creat Ratio 17.36 Ratio (12.00-20.00); Blood Urea Nitrogen 24.3 mg/dL (9.0-27.0); Calcium 8.6 mg/dL (8.7-10.3); Carbon Dioxide 21.4 mmol/L (20.0-27.5); Non-African American GFR(CKD) 47.1 (60.0-200.0); Potassium 4.2 mmol/L (3.5-5.5)
[2022-04-02 19:49] LABS: INR 2.16 (0.90-1.11); Prothrombin Time 23.7 sec (9.9-11.9)
== END | disposition expired ==
LOC: LABWHC1 12:02
PROVIDERS: ATTEND Nurse Practitioner Family
DX: Z09 Encounter for follow-up examination after completed treatment for conditions other than malignant neoplasm (principal); N17.9 Acute kidney failure, unspecified; Z79.01 Long term (current) use of anticoagulants
CPT/HCPCS: 36415; 80048; 85025; 85610

== ENCOUNTER 2022-04-06 14:50 | Inpatient (IN) | payer MEDICARE ==
[2022-04-06] MEDS ORDERED: ONDANSETRON 4 MG/2 ML VIAL IVP STA (15:22)
[2022-04-06] MEDS ORDERED: HYDROmorphone 1 MG/ML 1 ML SYRINGE IVP STA (15:22)
--- NOTE | 2022-04-06 15:25 | ED ---
Abdominal Pain HPI - General Chief Complaint: Abdominal Pain Stated Complaint: stomach pain Time Seen by Provider: 04/06/22 15:05 Source: patient, EMS, RN notes reviewed Mode of arrival: EMS Limitations: no limitations - History of Present Illness Initial Comments: 81-year-old male history of kidney stones status post cholecystectomy and appendectomy in the past who states he had the onset 3 or 4 hours prior to arrival of abdominal pain mostly flank in nature he states he was recently diagnosed with a kidney stone would not pass. He's had some urinary frequency no hematuria. No fevers chills or sweats he states pain is improved at this time. He does not want any pain medication my initial evaluation that he did later request him and also did have some vomiting after I did my initial exam. No chest pain or shortness of breath no other current complaints or modifying factors MD Complaint: abdominal pain - Related Data Home Medications Medication Instructions Recorded Confirmed Atorvastatin [Lipitor] 80 mg PO DAILY 12/21/15 04/06/22 Warfarin Sodium [Coumadin] 5 mg PO SUTUTHSA@209902/01/16 04/06/22 Primidone [Mysoline] 250 mg PO HS 08/16/18 04/06/22 Pyridostigmine [place] [Mestinon] 60 mg PO 5XD 08/16/18 04/06/22 metFORMIN HCL ER [Glucophage XR] 500 mg PO BID 08/16/18 04/06/22 Mexiletine HCl 150 mg PO Q8H 12/14/21 04/06/22 Warfarin Sodium 7.5 mg PO MOWEFR@209912/14/21 04/06/22 carvediloL 25 mg PO BID 12/14/21 04/06/22 Mv-Mn/Om3/Dha/Epa/Fish/Lut/Shannen 1 cap PO DAILY 03/28/22 04/06/22 [Ocuvite Adult 50 Plus Softgel] Previous Rx's Medication Instructions Recorded Furosemide [Lasix] 20 mg PO DAILY #30 tab 04/26/19 Potassium Chloride ER [K-Dur 20] 20 meq PO DAILY #30 tab.er.prt 04/26/19 lisinopriL [Zestril] 20 mg PO BID #0 tab 04/26/19 Aspirin 81 mg PO DAILY tab 03/30/22 Sotalol [Betapace] 80 mg PO BID #180 tab 03/30/22 Spironolactone [Aldactone] 25 mg PO DAILY #30 tab 03/30/22 Allergies Allergy/AdvReac Type Severity Reaction Status Date / Time mayonnaise AdvReac Vomiting Verified 04/06/22 17:12 SOUR CREAM AdvReac Vomiting Uncoded 04/06/22 14:59 Review of Systems ROS Statement: Those systems with pertinent positive or pertinent negative responses have been documented in the HPI. ROS Other: All systems not noted in ROS Statement are negative. Past Medical History Past Medical History: Atrial Fibrillation, COPD, CVA/TIA, Diabetes Mellitus, Eye Disorder, Hearing Disorder / Deafness, Hyperlipidemia, Hypertension, Memory Impairment, Musculoskeletal Disorder, Neurologic Disorder, Prostate Disorder Additional Past Medical History / Comment(s): CARDIAC ARREST IN 2008, MYASTHENIA GRAVIS. tremors, HX Iron deficiency Anemia. New Onset A-Fib 12/2015. Hiatal Hernia. POSS TIA YEARS AGO. BPH. Last Myocardial Infarction Date:: 2008 History of Any Multi-Drug Resistant Organisms: None Reported Past Surgical History: Appendectomy, Cholecystectomy, Heart Catheterization With Stent Additional Past Surgical History / Comment(s): Defbrilator implanted 06/04 HEMORROIDECTOMY. EGD/Colonoscopy. STENTS X2. RIA, CARDIOVERSION, cataract surg. August 2016 Past Anesthesia/Blood Transfusion Reactions: No Reported Reaction Date of Last Stent Placement:: 2008 Past Psychological History: No Psychological Hx Reported Smoking Status: Former smoker - Past Family History Father Family Medical History: Cancer Additional Family Medical History / Comment(s): bone cancer. Mother Additional Family Medical History / Comment(s): when pt was born. Daughter(s) Family Medical History: Cancer General Exam - General Exam Comments Initial Comments: This is a well-developed well-nourished awake alert oriented 4 male Limitations: no limitations General appearance: alert, in no apparent distress Head exam: Present: atraumatic, normocephalic, normal inspection Eye exam: Present: normal appearance, PERRL, EOMI. Absent: scleral icterus, conjunctival injection, periorbital swelling ENT exam: Present: normal exam, mucous membranes moist Neck exam: Present: normal inspection, full ROM, other (No stridor JVD or bruits). Absent: tenderness, meningismus, lymphadenopathy Respiratory exam: Present: normal lung sounds bilaterally. Absent: respiratory distress, wheezes, rales, rhonchi, stridor Cardiovascular Exam: Present: tachycardia, irregular rhythm. Absent: systolic murmur, diastolic murmur, rubs, gallop, clicks GI/Abdominal exam: Present: soft, tenderness (Has palpation no guarding rebound masses or bruits), normal bowel sounds. Absent: distended, guarding, rebound, rigid Rectal exam: Present: deferred Extremities exam: Present: normal inspection, full ROM, normal capillary refill. Absent: tenderness, pedal edema, joint swelling, calf tenderness Back exam: Present: normal inspection Neurological exam: Present: alert, oriented X3, CN II-XII intact Psychiatric exam: Present: normal affect, normal mood Skin exam: Present: warm, dry, intact, normal color. Absent: rash Course Vital Signs 04/06/22 04/06/22 04/06/22 14:56 15:26 16:47 Temperature 98.0 F 102.9 F H 100 F H Pulse Rate 114 H Respiratory 18 Rate Blood Pressure 192/127 O2 Sat by Pulse 98 Oximetry Medical Decision Making - Medical Decision Making I did discuss findings with the patient and his as well as with Dr. Kelly patient will be admitted for inpatient treatment and be on antibiotics which. IV fluids Was pt. sent in by a medical professional or institution? @ No-[by , PA, [employer], urgent care, hospital, or custodial] Did you speak to anyone other than the patient for history? @ -Yes, the patient's Did you review nursing and triage notes? @ -Yes and agree [agree or disagree, why?] Were old charts reviewed? @ No -[outside hosp., previous admissions, EMS record, old EKG, old radiological studies, urgent care reports/EKGs, custodial records?] Differential Diagnosis? @ Abdominal pain, EKG was interpreted by me-[chest pain, altered mental status abdominal pain women, abdominal pain men, vaginal bleeding, weakness, fever, dyspnea, syncope, headache, dizziness, GI bleed, back pain, seizure] EKG interpreted by me (3pts min.)? @ Yes-[none] X-rays interpreted by me (1pt min.)? @ -Yes [none] CT interpreted by me (1pt min.)? @ Yes-[none] U/S interpreted by me (1pt. min.)? @ -[none] What testing was considered but not performed? (CT, X-rays, U/S, labs)? Why? @ Not applicable CT, X-rays, U/S, labs? Why?] What meds were considered but not given? Why? @ -[none] Did you discuss the management of the patient with other professionals? @ Yes-[professionals i.e. Dr, PA, [employer], Lab, RT, Psych Nurse, Special Needs Nanny, Residential Property Tax Appraiser, Teacher, Social Media Specialist, top case assembler? Give summary] Did you reconcile home meds? @ Yes-[none] Was smoking cessation discussed for >3mins.? @ -[none] Was critical care preformed (if so, how long)? @ -[none] Were there social determinants of health that impacted care today? How? (Homelessness, low income, unemployed, alcoholism, drug addiction, transportation, low edu. Level, literacy, decrease access to med. care, chcf, rehab)? @ Not applicable-[Homelessness, low income, unemployed, alcoholism, drug addiction, transportation, low edu. Level, literacy, decrease access to med. care, chcf, rehab?] Was there de-escalation of care discussed even if they declined? (Discuss DNR or withdrawal of care, Hospice)? @ No -[Discuss DNR or withdrawal of care, Hospice?] What co-morbidities impacted this encounter? (DM, HTN, Smoking, COPD, CAD, Cancer, CVA, Hep., AIDS, mental health diagnosis, sleep apnea, morbid obesity)? @ Yes-[DM, HTN, Smoking, COPD, CAD, Cancer, CVA, Hep., AIDS, mental health diagnosis, sleep apnea, morbid obesity?] Was patient admitted / discharged? @ Admitted -[hospital course] Undiagnosed new problem with uncertain prognosis? @ -[none] Drug Therapy requiring intensive monitoring for toxicity (Heparin, Nitro, Insulin, Cardizem)? @ -[none] Were any procedures done? @ -[none] Diagnosis/symptom? @ Acute diverticulitis, abdominal pain, nephrolithiasis -[default] Acute, or Chronic, or Acute on Chronic? @ Possible perforation and diverticulitis-[default] Uncomplicated (without systemic symptoms) or Complicated (systemic symptoms)? @ -[default] Side effects of treatment? @ -[none] Exacerbation, Progression, or Severe Exacerbation] @ -[no] Poses a threat to life or bodily function? @ Yes diverticulitis with possible perforation -[no] - Lab Data Result diagrams: 04/06/22 15:30 04/06/22 15:30 Lab Results 04/06/22 04/06/22 04/06/22 Range/Units 15:30 15:30 15:30 WBC 7.6 (3.8-10.6) k/uL RBC 4.85 (4.30-5.90) m/uL Hgb 14.8 (13.0-17.5) gm/dL Hct 46.3 (39.0-53.0) % MCV 95.5 (80.0-100.0) fL MCH 30.4 (25.0-35.0) pg MCHC 31.8 (31.0-37.0) g/dL RDW 13.9 (11.5-15.5) % Plt Count 348 (150-450) k/uL MPV 9.0 Neutrophils % 86 % Lymphocytes % 6 % Monocytes % 4 % Eosinophils % 2 % Basophils % 0 % Neutrophils # 6.5 (1.3-7.7) k/uL Lymphocytes # 0.4 L (1.0-4.8) k/uL Monocytes # 0.3 (0-1.0) k/uL Eosinophils # 0.2 (0-0.7) k/uL Basophils # 0.0 (0-0.2) k/uL Hypochromasia Moderate Sodium 142 (137-145) mmol/L Potassium 4.3 (3.5-5.1) mmol/L Chloride 106 (98-107) mmol/L Carbon Dioxide 25 (22-30) mmol/L Anion Gap 11 mmol/L BUN 22 H (9-20) mg/dL Creatinine 1.37 H (0.66-1.25) mg/dL Est GFR (CKD-EPI)AfAm 56 (>60 ml/min/1.73 sqM) Est GFR (CKD-EPI)NonAf 48 (>60 ml/min/1.73 sqM) Glucose 165 H (74-99) mg/dL Plasma Lactic Acid Luke 2.3 H* (0.7-2.0) mmol/L Calcium 9.0 (8.4-10.2) mg/dL Total Bilirubin 0.9 (0.2-1.3) mg/dL AST 39 (17-59) U/L ALT 39 (4-49) U/L Alkaline Phosphatase 255 H (38-126) U/L Creatine Kinase 43 L (55-170) U/L Troponin I (0.000-0.034) ng/mL Total Protein 7.9 (6.3-8.2) g/dL Albumin 4.4 (3.5-5.0) g/dL Amylase 83 (30-110) U/L Lipase 304 H (23-300) U/L Coronavirus (PCR) (Not Detectd) 04/06/22 04/06/22 Range/Units 15:30 15:30 WBC (3.8-10.6) k/uL RBC (4.30-5.90) m/uL Hgb (13.0-17.5) gm/dL Hct (39.0-53.0) % MCV (80.0-100.0) fL MCH (25.0-35.0) pg MCHC (31.0-37.0) g/dL RDW (11.5-15.5) % Plt Count (150-450) k/uL MPV Neutrophils % % Lymphocytes % % Monocytes % % Eosinophils % % Basophils % % Neutrophils # (1.3-7.7) k/uL Lymphocytes # (1.0-4.8) k/uL Monocytes # (0-1.0) k/uL Eosinophils # (0-0.7) k/uL Basophils # (0-0.2) k/uL Hypochromasia Sodium (137-145) mmol/L Potassium (3.5-5.1) mmol/L Chloride (98-107) mmol/L Carbon Dioxide (22-30) mmol/L Anion Gap mmol/L BUN (9-20) mg/dL Creatinine (0.66-1.25) mg/dL Est GFR (CKD-EPI)AfAm (>60 ml/min/1.73 sqM) Est GFR (CKD-EPI)NonAf (>60 ml/min/1.73 sqM) Glucose (74-99) mg/dL Plasma Lactic Acid Luke (0.7-2.0) mmol/L Calcium (8.4-10.2) mg/dL Total Bilirubin (0.2-1.3) mg/dL AST (17-59) U/L ALT (4-49) U/L Alkaline Phosphatase (38-126) U/L Creatine Kinase (55-170) U/L Troponin I 0.013 (0.000-0.034) ng/mL Total Protein (6.3-8.2) g/dL Albumin (3.5-5.0) g/dL Amylase (30-110) U/L Lipase (23-300) U/L Coronavirus (PCR) Not Detected (Not Detectd) - EKG Data -: EKG Interpreted by Me EKG Comments: fibrillation rate of 97 QRS 104 QT since QTC 361/4:[address] configuration this was interpreted by me. - Radiology Data Radiology results: image reviewed Interpreted by me: Imaging interpreted by me evidence of right pleural effusion slight left effus ion and imaging also evidence of diverticulitis question perforation. Her kidney stones in the right kidney. Disposition Clinical Impression: Acute abdomen, Acute diverticulitis, Nephrolithiasis, Dehydration, Lactic acidosis, Febrile illness, acute, Vomiting Disposition: ADMITTED IP TO THIS [facility] Condition: Fair Referrals: Monica Grewal III, MD [Primary Care Provider] - 1-2 days Decision Date: 04/06/22 Decision Time: 17:45
[2022-04-06] MEDS ORDERED: ACETAMINOPHEN IV (For NPO) 1,000 MG in EMPTY BAG 1 BAG IVPB STA (15:30)
--- NOTE | 2022-04-06 15:54 | XR ---
KUB HISTORY: Abdominal pain COMPARISON: 08/16/2018. TECHNIQUE: 4 supine views of the abdomen and pelvis are obtained. FINDINGS: Bowel gas pattern is nonspecific and there is no definite evidence of obstruction. There is a 2 cm calcification overlying the region of the right kidney which is seen previously and m ost likely represents a renal cyst linear calcifications in the right upper quadrant which could repr esent gallstones. These were seen previously and are stable. The osseous structures are intact. IMPRESSION: 1. Nonspecific bowel gas pattern. 2. Abdominal calcifications on the right as described above unchanged compared to previous.
[2022-04-06 16:06] LABS: Basophils % (A) 0 %; Eosinophils # (A) 0.2 k/uL (0-0.7); Eosinophils % (A) 2 %; HCT 46.3 % (39.0-53.0); HGB 14.8 gm/dL (13.0-17.5); Hypochromasia Moderate; Lymphocytes # (A) 0.4 k/uL (1.0-4.8); Lymphocytes % (A) 6 %; MCH 30.4 pg (25.0-35.0); MCHC 31.8 g/dL (31.0-37.0); MCV 95.5 fL (80.0-100.0); Monocytes # (A) 0.3 k/uL (0-1.0); Monocytes % (A) 4 %; Neutrophils # (A) 6.5 k/uL (1.3-7.7); Neutrophils % (A) 86 %; Platelet Count 348 k/uL (150-450); RBC 4.85 m/uL (4.30-5.90); RDW 13.9 % (11.5-15.5); WBC 7.6 k/uL (3.8-10.6)
[2022-04-06 16:17] LABS: Albumin 4.4 g/dL (3.5-5.0); Potassium 4.3 mmol/L (3.5-5.1); Total Bilirubin 0.9 mg/dL (0.2-1.3); Total Protein 7.9 g/dL (6.3-8.2)
--- NOTE | 2022-04-06 17:12 | CT ---
EXAMINATION TYPE: CT abdomen pelvis wo/w con DATE OF EXAM: 04/06/2022 COMPARISON: 08/16/2018 HISTORY: abdominal pain and nausea. hx of stones CT DLP: 2877 mGycm Automated exposure control for dose reduction was used. TECHNIQUE: Helical acquisition of images was performed from the lung bases through the pelvis. CONTRAST: Performed without Oral Contrast and without and with IV Contrast, patient injected with 70 mL of Isov ue 300. FINDINGS: There are moderate to large bilateral pleural effusions. There are no definite lung infiltrates in th e visualized lung bases. There are surgical absence of gallbladder. There is no focal mass or organomegaly involving the liver, pancreas, spleen or adrenal glands. Kidneys are mildly atrophic. There is no solid renal mass or hydronephrosis. There is a large nonobst ructing 16.5 mm right renal calculus which was seen previously. The bowel loops are normal in caliber and there is no evidence of obstruction. There is a moderate to large area of diffuse abnormal hazy density in the pericolic fat in the right upper quadrant adjacen t appears to be associated either is diffuse small bowel loops with thickened wall or the proximal tr ansverse colon. This could represent acute diverticulitis with associated adjacent small bowel wall t hickening with a small perforation although the inflammatory process could reside within the small lula wel itself and the possibility of small segment of ischemic small bowel is not excluded.. There are a few small droplets of the extraluminal air. . There is no abscess. There is no free intraperitoneal fluid. There is no pelvic mass or adenopathy. There is a small right inguinal hernia containing a small soft tissue density but no bowel. The osseous structures are grossly intact. IMPRESSION: 1.willa inflammatory process with possible small perforation in the right upper quadrant and described above. The findings could represent acute diverticulitis of the proximal transverse colon versus an i nflammatory or ischemic process involving a few small bowel loops as described above. 2. Moderate to large bilateral pleural effusions. 3. Nonobstructing 16.5 mm right renal calculus 4. Mild atrophy of the kidneys.
[2022-04-06] MEDS ORDERED: PIPERACILLIN-TAZOBACTAM 3.375 GM in SODIUM CHLORIDE 0.9% 100 ML IVPB STA (18:04)
[2022-04-06] MEDS ORDERED: HYDROmorphone 0.5 MG/0.5 ML SYRINGE IVP PRN (18:23)
[2022-04-06] MEDS ORDERED: NALOXONE 0.4 MG/ML 1 ML VIAL IV PRN (18:23)
[2022-04-06] MEDS ORDERED: ONDANSETRON 4 MG/2 ML VIAL IVP PRN (18:23)
[2022-04-06 18:52] LABS: Appearance,Urine Clear (Clear); Bilirubin,Urine Negative (Negative); Blood,Urine Negative (Negative); Color,Urine Yellow; Glucose,Urine (UA) Negative (Negative); Ketones,Urine Negative (Negative); Leukocyte Esterase,Urine Moderate (Negative); Mucus,Urine Rare /hpf; Nitrite,Urine Negative (Negative); PH, Urine 5.5 (5.0-8.0); Protein,Urine Trace (Negative); RBC,Urine 3 /hpf (0-5); Squamous Epithelial Cell,Urine 1 /hpf (0-4); Urobilinogen,Urine <2.0 mg/dL (<2.0); WBC,Urine 27 /hpf (0-5)
[2022-04-06 18:56] LABS: Specific Gravity,Urine >1.050 (1.001-1.035)
[2022-04-06] MEDS: SODIUM CHLORIDE 0.9% 1,000 ML IV SCH (19:02)
[2022-04-06] MEDS: PIPERACILLIN-TAZOBACTAM 3.375 GM in SODIUM CHLORIDE 0.9% 100 ML IVPB SCH (23:39)
[2022-04-07] MEDS: SODIUM CHLORIDE 0.9% 1,000 ML IV SCH ×3 (04:55→15:42)
[2022-04-07 07:42] LABS: Glucose,Whole Blood 129 mg/dL (70-110)
[2022-04-07] MEDS: PIPERACILLIN-TAZOBACTAM 3.375 GM in SODIUM CHLORIDE 0.9% 100 ML IVPB SCH ×2 (09:04→15:41)
[2022-04-07] MEDS: SPIRONOLACTONE 25 MG TAB PO SCH (09:05)
[2022-04-07] MEDS: carvediloL 12.5 MG TAB PO SCH ×2 (09:06→20:23)
[2022-04-07] MEDS: FUROSEMIDE 20 MG TAB PO SCH (09:06)
[2022-04-07] MEDS: SOTALOL 80 MG TAB PO SCH ×2 (09:06→20:23)
[2022-04-07] MEDS: lisinopriL 20 MG TAB PO SCH ×2 (09:06→20:23)
[2022-04-07] MEDS: ATORVASTATIN 80 MG TAB PO SCH (09:06)
[2022-04-07] MEDS: PANTOPRAZOLE 40 MG/10 ML VIAL IV SCH (09:06)
[2022-04-07] MEDS: POTASSIUM CHLORIDE ER 20 MEQ TAB.ER PO SCH (09:07)
[2022-04-07] MEDS: MEXILETINE 150 MG CAP PO SCH ×2 (09:07→15:42)
[2022-04-07 10:50] LABS: Basophils # (A) 0.03 X 10*3/uL (0.00-0.10); Basophils % (A) 0.3 %; Eosinophils # (A) 0.04 X 10*3/uL (0.04-0.35); Eosinophils % (A) 0.3 %; HGB 11.4 g/dL (13.0-17.0); Immature Grans, Automated 0.4 %; Lymphocytes # (A) 0.62 X 10*3/uL (0.90-5.00); Lymphocytes % (A) 5.3 %; MCH 29.2 pg (27.0-32.0); MCV 97.4 fL (80.0-97.0); Mean Platelet Volume 11.3 fL (9.5-12.2); Monocytes # (A) 0.88 X 10*3/uL (0.20-1.00); Monocytes % (A) 7.5 %; NRBC Per 100 WBC 0 /100 WBCS (0.0-0.0); Neutrophils # (A) 10.05 X 10*3/uL (1.80-7.70); Neutrophils % (A) 86.2 %; Platelet Count 266 X 10*3/uL (140-440); RDW 14.5 % (11.5-14.5); WBC 11.67 X 10*3/uL (4.50-10.00)
[2022-04-07] MEDS: PYRIDOSTIGMINE 60 MG TAB PO SCH ×3 (11:11→20:23)
[2022-04-07 11:59] LABS: African American GFR (CKD) 49.4 (60.0-200.0); Albumin 3.6 g/dL (3.8-4.9); Albumin/Globulin Ratio 1.46 (1.60-3.17); Anion Gap 13.2 mmol/L (10.00-18.00); BUN/Creat Ratio 14.01 Ratio (12.00-20.00); Blood Urea Nitrogen 21.3 mg/dL (9.0-27.0); Calcium 8.2 mg/dL (8.7-10.3); Globulin 2.5 g/dL (1.6-3.3); Non-African American GFR(CKD) 42.7 (60.0-200.0); Potassium 4.1 mmol/L (3.5-5.5); Total Bilirubin 0.8 mg/dL (0.30-1.20)
[2022-04-07 12:01] LABS: Glucose,Whole Blood 107 mg/dL (70-110)
--- NOTE | 2022-04-07 12:56 | P.GSHP ---
History of Present Illness H&P Date: 04/07/22 Chief Complaint: Perforated diverticula was This 81-year-old male who was admitted through the emergency room complaints of abdominal pain. Patient's workup found have evidence of diverticulitis of possible transverse colon microperforation. Patient states she's had pain on and off for the last few days. He states his pain is better this morning. Past Medical History Past Medical History: Atrial Fibrillation, COPD, CVA/TIA, Diabetes Mellitus, Eye Disorder, Hearing Disorder / Deafness, Hyperlipidemia, Hypertension, Memory Impairment, Musculoskeletal Disorder, Neurologic Disorder, Prostate Disorder Additional Past Medical History / Comment(s): CARDIAC ARREST IN 2008, MYASTHENIA GRAVIS. tremors, HX Iron deficiency Anemia. New Onset A-Fib 12/2015. Hiatal Hernia. POSS TIA YEARS AGO. BPH. Last Myocardial Infarction Date:: 2008 History of Any Multi-Drug Resistant Organisms: None Reported Past Surgical History: Appendectomy, Cholecystectomy, Heart Catheterization With Stent Additional Past Surgical History / Comment(s): Defbrilator implanted 06/04 HEMORROIDECTOMY. EGD/Colonoscopy. STENTS X2. RIA, CARDIOVERSION, cataract surg. August 2016 Past Anesthesia/Blood Transfusion Reactions: No Reported Reaction Date of Last Stent Placement:: 2008 Past Psychological History: No Psychological Hx Reported Additional Psychological History / Comment(s): DENIES. Smoking Status: Former smoker Past Alcohol Use History: Rare Additional Past Alcohol Use History / Comment(s): QUIT 20 YRS AGO (1993), SMOKED FOR 20 YRS, 1PPD. Past Drug Use History: None Reported - Past Family History Father Family Medical History: Cancer Additional Family Medical History / Comment(s): bone cancer. Mother Additional Family Medical History / Comment(s): when pt was born. Daughter(s) Family Medical History: Cancer Medications and Allergies Home Medications Medication Instructions Recorded Confirmed Type Atorvastatin [Lipitor] 80 mg PO DAILY 12/21/15 04/06/22 History Warfarin Sodium [Coumadin] 5 mg PO SUTUTHSA@2100 02/01/16 04/06/22 History Primidone [Mysoline] 250 mg PO HS 08/16/18 04/06/22 History Pyridostigmine [place] [Mestinon] 60 mg PO 5XD 08/16/18 04/06/22 History metFORMIN HCL ER [Glucophage XR] 500 mg PO BID 08/16/18 04/06/22 History Furosemide [Lasix] 20 mg PO DAILY #30 tab 04/26/19 04/06/22 Rx Potassium Chloride ER [K-Dur 20] 20 meq PO DAILY #30 tab.er.prt 04/26/19 04/06/22 Rx lisinopriL [Zestril] 20 mg PO BID #0 tab 04/26/19 04/06/22 Rx Mexiletine HCl 150 mg PO Q8H 12/14/21 04/06/22 History Warfarin Sodium 7.5 mg PO MOWEFR@2100 12/14/21 04/06/22 History carvediloL 25 mg PO BID 12/14/21 04/06/22 History Mv-Mn/Om3/Dha/Epa/Fish/Lut/Shannen 1 cap PO DAILY 03/28/22 04/06/22 History [Ocuvite Adult 50 Plus Softgel] Aspirin 81 mg PO DAILY tab 03/30/22 04/06/22 Rx Sotalol [Betapace] 80 mg PO BID #180 tab 03/30/22 04/06/22 Rx Spironolactone [Aldactone] 25 mg PO DAILY #30 tab 03/30/22 04/06/22 Rx Allergies Allergy/AdvReac Type Severity Reaction Status Date / Time mayonnaise AdvReac Vomiting Verified 04/06/22 17:12 SOUR CREAM AdvReac Vomiting Uncoded 04/06/22 14:59 Surgical - Exam Vital Signs Temp Pulse Resp BP Pulse Ox 98.0 F 114 H 18 192/127 98 04/06/22 14:56 04/06/22 14:56 04/06/22 14:56 04/06/22 14:56 04/06/22 14:56 - General well developed, well nourished, no distress - Eyes PERRL - ENT normal pinna - Neck no masses - Respiratory normal expansion - Cardiovascular Rhythm: regular - Abdomen Mild abdominal pain. Is no rebound or guarding. Abdomen: soft Results - Labs 04/07/22 06:07 04/07/22 06:07 Abnormal Lab Results - Last 24 Hours (Table) 04/06/22 04/06/22 04/06/22 Range/Units 15:30 15:30 15:30 WBC (4.50-10.00) X 10*3/uL RBC (4.40-5.60) X 10*6/uL Hgb (13.0-17.0) g/dL Hct (39.6-50.0) % MCV (80.0-97.0) fL MCHC (32.0-37.0) g/dL Immature Gran # (0.00-0.04) X 10*3/uL Neutrophils # (1.80-7.70) X 10*3/uL Lymphocytes # 0.4 L (1.0-4.8) k/uL BUN 22 H (9-20) mg/dL Creatinine 1.37 H (0.66-1.25) mg/dL Est GFR (CKD-EPI)AfAm (60.0-200.0) Est GFR (CKD-EPI)NonAf (60.0-200.0) Glucose 165 H (74-99) mg/dL POC Glucose (mg/dL) (70-110) mg/dL Plasma Lactic Acid Luke 2.3 H* (0.7-2.0) mmol/L Calcium (8.7-10.3) mg/dL Alkaline Phosphatase 255 H (38-126) U/L Creatine Kinase 43 L (55-170) U/L Total Protein (6.2-8.2) g/dL Albumin (3.8-4.9) g/dL Albumin/Globulin Ratio (1.60-3.17) g/dL Lipase 304 H (23-300) U/L Ur Specific [place] (1.001-1.035) Urine Protein (Negative) Ur Leukocyte Esterase (Negative) Urine WBC (0-5) /hpf Urine Mucus (None) /hpf 04/06/22 04/07/22 04/07/22 Range/Units 18:30 06:07 06:07 WBC 11.67 H (4.50-10.00) X 10*3/uL RBC 3.90 L (4.40-5.60) X 10*6/uL Hgb 11.4 L (13.0-17.0) g/dL Hct 38.0 L (39.6-50.0) % MCV 97.4 H (80.0-97.0) fL MCHC 30.0 L (32.0-37.0) g/dL Immature Gran # 0.05 H (0.00-0.04) X 10*3/uL Neutrophils # 10.05 H (1.80-7.70) X 10*3/uL Lymphocytes # 0.62 L (1.0-4.8) k/uL BUN (9-20) mg/dL Creatinine (0.66-1.25) mg/dL Est GFR (CKD-EPI)AfAm 49.4 L (60.0-200.0) Est GFR (CKD-EPI)NonAf 42.7 L (60.0-200.0) Glucose 116 H (74-99) mg/dL POC Glucose (mg/dL) (70-110) mg/dL Plasma Lactic Acid Luke (0.7-2.0) mmol/L Calcium 8.2 L (8.7-10.3) mg/dL Alkaline Phosphatase 162 H (38-126) U/L Creatine Kinase (55-170) U/L Total Protein 6.0 L (6.2-8.2) g/dL Albumin 3.6 L (3.8-4.9) g/dL Albumin/Globulin Ratio 1.46 L (1.60-3.17) g/dL Lipase (23-300) U/L Ur Specific [place] >1.050 H (1.001-1.035) Urine Protein Trace H (Negative) Ur Leukocyte Esterase Moderate H (Negative) Urine WBC 27 H (0-5) /hpf Urine Mucus Rare H (None) /hpf 04/07/22 Range/Units 07:41 WBC (4.50-10.00) X 10*3/uL RBC (4.40-5.60) X 10*6/uL Hgb (13.0-17.0) g/dL Hct (39.6-50.0) % MCV (80.0-97.0) fL MCHC (32.0-37.0) g/dL Immature Gran # (0.00-0.04) X 10*3/uL Neutrophils # (1.80-7.70) X 10*3/uL Lymphocytes # (1.0-4.8) k/uL BUN (9-20) mg/dL Creatinine (0.66-1.25) mg/dL Est GFR (CKD-EPI)AfAm (60.0-200.0) Est GFR (CKD-EPI)NonAf (60.0-200.0) Glucose (74-99) mg/dL POC Glucose (mg/dL) 129 H (70-110) mg/dL Plasma Lactic Acid Luke (0.7-2.0) mmol/L Calcium (8.7-10.3) mg/dL Alkaline Phosphatase (38-126) U/L Creatine Kinase (55-170) U/L Total Protein (6.2-8.2) g/dL Albumin (3.8-4.9) g/dL Albumin/Globulin Ratio (1.60-3.17) g/dL Lipase (23-300) U/L Ur Specific [place] (1.001-1.035) Urine Protein (Negative) Ur Leukocyte Esterase (Negative) Urine WBC (0-5) /hpf Urine Mucus (None) /hpf Microbiology - Last 24 Hours (Table) 04/06/22 18:30 Urine Culture - Preliminary Urine,Clean Catch Diabetes panel 04/06/22 04/07/22 Range/Units 15:30 06:07 Sodium 142 141 (137-145) mmol/L Potassium 4.3 4.1 (3.5-5.1) mmol/L Chloride 106 107 (98-107) mmol/L Carbon Dioxide 25 21.0 (22-30) mmol/L BUN 22 H 21.3 (9-20) mg/dL Creatinine 1.37 H 1.5 (0.66-1.25) mg/dL Glucose 165 H 116 H (74-99) mg/dL Calcium 9.0 8.2 L (8.4-10.2) mg/dL AST 39 27 (17-59) U/L ALT 39 28 (4-49) U/L Alkaline Phosphatase 255 H 162 H (38-126) U/L Total Protein 7.9 6.0 L (6.3-8.2) g/dL Albumin 4.4 3.6 L (3.5-5.0) g/dL Calcium panel 04/06/22 04/07/22 Range/Units 15:30 06:07 Calcium 9.0 8.2 L (8.4-10.2) mg/dL Albumin 4.4 3.6 L (3.5-5.0) g/dL Pituitary panel 04/06/22 04/07/22 Range/Units 15:30 06:07 Sodium 142 141 (137-145) mmol/L Potassium 4.3 4.1 (3.5-5.1) mmol/L Chloride 106 107 (98-107) mmol/L Carbon Dioxide 25 21.0 (22-30) mmol/L BUN 22 H 21.3 (9-20) mg/dL Creatinine 1.37 H 1.5 (0.66-1.25) mg/dL Glucose 165 H 116 H (74-99) mg/dL Calcium 9.0 8.2 L (8.4-10.2) mg/dL Adrenal panel 04/06/22 04/07/22 Range/Units 15:30 06:07 Sodium 142 141 (137-145) mmol/L Potassium 4.3 4.1 (3.5-5.1) mmol/L Chloride 106 107 (98-107) mmol/L Carbon Dioxide 25 21.0 (22-30) mmol/L BUN 22 H 21.3 (9-20) mg/dL Creatinine 1.37 H 1.5 (0.66-1.25) mg/dL Glucose 165 H 116 H (74-99) mg/dL Calcium 9.0 8.2 L (8.4-10.2) mg/dL Total Bilirubin 0.9 0.80 (0.2-1.3) mg/dL AST 39 27 (17-59) U/L ALT 39 28 (4-49) U/L Alkaline Phosphatase 255 H 162 H (38-126) U/L Total Protein 7.9 6.0 L (6.3-8.2) g/dL Albumin 4.4 3.6 L (3.5-5.0) g/dL Assessment and Plan Assessment: Diverticula is microperforation. Patient will continue receive IV antibiotic. He will start full liquid diet.
[2022-04-07] MEDS: HEPARIN SODIUM,PORCINE/PF 5,000 UNIT/0.5 ML SYRINGE SQ SCH ×2 (15:41→20:23)
[2022-04-07 17:26] LABS: Glucose,Whole Blood 249 mg/dL (70-110)
[2022-04-07] MEDS: PRIMIDONE 250 MG TAB PO SCH (20:23)
[2022-04-07 21:10] LABS: Glucose,Whole Blood 173 mg/dL (70-110)
--- NOTE | 2022-04-07 22:23 | P.CONS ---
History of Present Illness - Reason for Consult Consult date: 04/07/22 Diverticulitis Requesting physician: Joe Kelly - Chief Complaint Abdominal pain x 1 day - History of Present Illness Patient is a 81-year-old male with a past medical history significant for atrial fibrillation COPD CVA TIA diabetes mellitus hypertension hy perlipidemia presenting to the ER for evaluation of acute abdominal pain that started 3-4 hour prior to now to the hospital patient describing pain to be mostly left upper quadrant area describing it to be sharp was almost 10 out of 10 when he presented to the hospital with some nausea but no vomiting and denies having any diarrhea or constipation, patient of presentation to hospital was afebrile he did have a normal white count initially the white count is up to 11.3 this morning with a left shift creatinine is 1.5 plasma lactic acid was normal patient did have a CT of abdominal pelvis which was reported as inflammatory process with possible small perforation in the right upper quadrant could be acute diverticulitis of the proximal transverse colon versus an inflammatory ischemic process involving his few small bowel loops patient was started on Zosyn and infectious disease was consulted for further management of antibiotic therapy patient is admitted to general surgery currently being treated medically Review of Systems Positive point has been mentioned in the HPI rest of the systems are negative Past Medical History Past Medical History: Atrial Fibrillation, COPD, CVA/TIA, Diabetes Mellitus, Eye Disorder, Hearing Disorder / Deafness, Hyperlipidemia, Hypertension, Memory Impairment, Musculoskeletal Disorder, Neurologic Disorder, Prostate Disorder Additional Past Medical History / Comment(s): CARDIAC ARREST IN 2008, MYASTHENIA GRAVIS. tremors, HX Iron deficiency Anemia. New Onset A-Fib 12/2015. Hiatal Hernia. POSS TIA YEARS AGO. BPH. Last Myocardial Infarction Date:: 2008 History of Any Multi-Drug Resistant Organisms: None Reported Past Surgical History: Appendectomy, Cholecystectomy, Heart Catheterization With Stent Additional Past Surgical History / Comment(s): Defbrilator implanted 06/04 HEMORROIDECTOMY. EGD/Colonoscopy. STENTS X2. RIA, CARDIOVERSION, cataract wade rg. August 2016 Past Anesthesia/Blood Transfusion Reactions: No Reported Reaction Date of Last Stent Placement:: 2008 Past Psychological History: No Psychological Hx Reported Additional Psychological History / Comment(s): DENIES. Smoking Status: Former smoker Past Alcohol Use History: Rare Additional Past Alcohol Use History / Comment(s): QUIT 20 YRS AGO (1993), SMOKED FOR 20 YRS, 1PPD. Past Drug Use History: None Reported - Past Family History Father Family Medical History: Cancer Additional Family Medical History / Comment(s): bone cancer. Mother Additional Family Medical History / Comment(s): when pt was born. Daughter(s) Family Medical History: Cancer Medications and Allergies Home Medications Medication Instructions Recorded Confirmed Type Atorvastatin [Lipitor] 80 mg PO DAILY 12/21/15 04/06/22 History Warfarin Sodium [Coumadin] 5 mg PO SUTUTHSA@209902/01/16 04/06/22 History Primidone [Mysoline] 250 mg PO HS 08/16/18 04/06/22 History Pyridostigmine Dutton [Mestinon] 60 mg PO 5XD 08/16/18 04/06/22 History metFORMIN HCL ER [Glucophage XR] 500 mg PO BID 08/16/18 04/06/22 History Furosemide [Lasix] 20 mg PO DAILY #30 tab 04/26/19 04/06/22 Rx Potassium Chloride ER [K-Dur 20] 20 meq PO DAILY #30 tab.er.prt 04/26/19 04/06/22 Rx lisinopriL [Zestril] 20 mg PO BID #0 tab 04/26/19 04/06/22 Rx Mexiletine HCl 150 mg PO Q8H 12/14/21 04/06/22 History Warfarin Sodium 7.5 mg PO MOWEFR@209912/14/21 04/06/22 History carvediloL 25 mg PO BID 12/14/21 04/06/22 History Mv-Mn/Om3/Dha/Epa/Fish/Lut/Shannen 1 cap PO DAILY 03/28/22 04/06/22 History [Ocuvite Adult 50 Plus Softgel] Aspirin 81 mg PO DAILY tab 03/30/22 04/06/22 Rx Sotalol [Betapace] 80 mg PO BID #180 tab 03/30/22 04/06/22 Rx Spironolactone [Aldactone] 25 mg PO DAILY #30 tab 03/30/22 04/06/22 Rx Allergies Allergy/AdvReac Type Severity Reaction Status Date / Time mayonnaise AdvReac Vomiting Verified 04/06/22 17:12 SOUR CREAM AdvReac Vomiting Uncoded 04/06/22 14:59 Physical Exam Vitals: Vital Signs Temp Pulse Pulse Resp BP BP BP 04/07/22 08:00 98 F 108 H 19 124/63 04/07/22 03:06 97.7 F 79 19 120/72 04/06/22 23:29 97.8 F 86 18 156/105 04/06/22 22:47 88 15 107/66 04/06/22 16:47 100 F H 04/06/22 15:26 102.9 F H 04/06/22 14:56 98.0 F 114 H 18 192/127 Pulse Ox 04/07/22 08:00 95 04/07/22 03:06 97 04/06/22 23:29 98 04/06/22 22:47 100 04/06/22 16:47 04/06/22 15:26 04/06/22 14:56 98 Intake and Output 04/06/22 04/07/22 04/07/22 22:59 06:59 14:59 Other: # Voids 1 1 Weight 95.254 kg GENERAL DESCRIPTION: Elderly male lying in bed, no distress. No tachypnea or accessory muscle of respiration use. HEENT: Shows Pallor , no scleral icterus. Oral mucous membrane is dry. No pharyngeal erythema or thrush NECK: Trachea central, no thyromegaly. LUNGS: Unlabored breathing. Clear to auscultation anteriorly. No wheeze or crackle. HEART: S1, S2, regular rate and rhythm. No loud murmur ABDOMEN: Soft, no tenderness , guarding or rigidity, no organomegaly EXTREMITIES: No edema of feet. SKIN: No rash, no masses palpable. NEUROLOGICAL: The patient is awake, alert, oriented x3, mood and affect normal. Results CBC & Chem 7: 04/09/22 11:36 04/09/22 11:57 Labs: Abnormal Lab Results - Last 24 Hours (Table) 04/06/22 04/06/22 04/06/22 Range/Units 15:30 15:30 15:30 WBC (4.50-10.00) X 10*3/uL RBC (4.40-5.60) X 10*6/uL Hgb (13.0-17.0) g/dL Hct (39.6-50.0) % MCV (80.0-97.0) fL MCHC (32.0-37.0) g/dL Immature Gran # (0.00-0.04) X 10*3/uL Neutrophils # (1.80-7.70) X 10*3/uL Lymphocytes # 0.4 L (1.0-4.8) k/uL BUN 22 H (9-20) mg/dL Creatinine 1.37 H (0.66-1.25) mg/dL Est GFR (CKD-EPI)AfAm (60.0-200.0) Est GFR (CKD-EPI)NonAf (60.0-200.0) Glucose 165 H (74-99) mg/dL POC Glucose (mg/dL) (70-110) mg/dL Plasma Lactic Acid Luke 2.3 H* (0.7-2.0) mmol/L Calcium (8.7-10.3) mg/dL Alkaline Phosphatase 255 H (38-126) U/L Creatine Kinase 43 L (55-170) U/L Total Protein (6.2-8.2) g/dL Albumin (3.8-4.9) g/dL Albumin/Globulin Ratio (1.60-3.17) g/dL Lipase 304 H (23-300) U/L Ur Specific Sharon (1.001-1.035) Urine Protein (Negative) Ur Leukocyte Esterase (Negative) Urine WBC (0-5) /hpf Urine Mucus (None) /hpf 04/06/22 04/07/22 04/07/22 Range/Units 18:30 06:07 06:07 WBC 11.67 H (4.50-10.00) X 10*3/uL RBC 3.90 L (4.40-5.60) X 10*6/uL Hgb 11.4 L (13.0-17.0) g/dL Hct 38.0 L (39.6-50.0) % MCV 97.4 H (80.0-97.0) fL MCHC 30.0 L (32.0-37.0) g/dL Immature Gran # 0.05 H (0.00-0.04) X 10*3/uL Neutrophils # 10.05 H (1.80-7.70) X 10*3/uL Lymphocytes # 0.62 L (1.0-4.8) k/uL BUN (9-20) mg/dL Creatinine (0.66-1.25) mg/dL Est GFR (CKD-EPI)AfAm 49.4 L (60.0-200.0) Est GFR (CKD-EPI)NonAf 42.7 L (60.0-200.0) Glucose 116 H (74-99) mg/dL POC Glucose (mg/dL) (70-110) mg/dL Plasma Lactic Acid Luke (0.7-2.0) mmol/L Calcium 8.2 L (8.7-10.3) mg/dL Alkaline Phosphatase 162 H (38-126) U/L Creatine Kinase (55-170) U/L Total Protein 6.0 L (6.2-8.2) g/dL Albumin 3.6 L (3.8-4.9) g/dL Albumin/Globulin Ratio 1.46 L (1.60-3.17) g/dL Lipase (23-300) U/L Ur Specific Sharon >1.050 H (1.001-1.035) Urine Protein Trace H (Negative) Ur Leukocyte Esterase Moderate H (Negative) Urine WBC 27 H (0-5) /hpf Urine Mucus Rare H (None) /hpf 04/07/ Range/Units 07:41 WBC (4.50-10.00) X 10*3/uL RBC (4.40-5.60) X 10*6/uL Hgb (13.0-17.0) g/dL Hct (39.6-50.0) % MCV (80.0-97.0) fL MCHC (32.0-37.0) g/dL Immature Gran # (0.00-0.04) X 10*3/uL Neutrophils # (1.80-7.70) X 10*3/uL Lymphocytes # (1.0-4.8) k/uL BUN (9-20) mg/dL Creatinine (0.66-1.25) mg/dL Est GFR (CKD-EPI)AfAm (60.0-200.0) Est GFR (CKD-EPI)NonAf (60.0-200.0) Glucose (74-99) mg/dL POC Glucose (mg/dL) 129 H (70-110) mg/dL Plasma Lactic Acid Luke (0.7-2.0) mmol/L Calcium (8.7-10.3) mg/dL Alkaline Phosphatase (38-126) U/L Creatine Kinase (55-170) U/L Total Protein (6.2-8.2) g/dL Albumin (3.8-4.9) g/dL Albumin/Globulin Ratio (1.60-3.17) g/dL Lipase (23-300) U/L Ur Specific Sharon (1.001-1.035) Urine Protein (Negative) Ur Leukocyte Esterase (Negative) Urine WBC (0-5) /hpf Urine Mucus (None) /hpf Microbiology - Last 24 Hours (Table) 04/06/22 18:30 Urine Culture - Preliminary Urine,Clean Catch Assessment and Plan (1) Acute abdomen Status: Acute Code(s): R10.0 - ACUTE ABDOMEN SNOMED Code(s): 7727874 Plan: 1patient is in the hospital with abdominal pain and acute onset now with concern for possible microperforation of the transverse colon versus ischemic changes to the small bowel however the patient did have a normal lactic acid white count is not significantly elevated and the patient is afebrile and the patient abdominal pain subsequently resolved question of possible micro- perforation/ diverticulitis and will need to cover for enteric gram-negative both anaerobes and aerobes 2patient to continue with the Zosyn 3.375 g every 8 hours 3gentle IV fluid 4recheck inflammatory markers with a.m. lab We will follow on clinical condition and cultures to further adjust medication if needed Thank you for this consultation will follow this patient with you Time with Patient: Greater than 30
[2022-04-08] MEDS: MEXILETINE 150 MG CAP PO SCH ×3 (01:34→16:21)
[2022-04-08] MEDS: PIPERACILLIN-TAZOBACTAM 3.375 GM in SODIUM CHLORIDE 0.9% 100 ML IVPB SCH ×3 (01:34→16:20)
[2022-04-08] MEDS: PYRIDOSTIGMINE 60 MG TAB PO SCH ×5 (01:36→21:04)
[2022-04-08] MEDS: SODIUM CHLORIDE 0.9% 1,000 ML IV SCH ×3 (01:43→19:35)
--- NOTE | 2022-04-08 06:31 | CONS ---
CONSULTATION REASON FOR CONSULTATION: Advice regarding diabetes and other medical issues requested by surgery. HISTORY OF PRESENT ILLNESS: This is an 81-year-old gentleman with a past medical history of atrial ablation, diabetes, and multiple medical issues, admitted with complaints of abdominal pain, transverse colon diverticulitis and microperforation suspected. The patient was admitted for further evaluation. There is no history of any fever, rigors, or chills. A broad-spectrum antibiotic has been started. PAST MEDICAL HISTORY: Reviewed include atrial fibrillation, diabetes mellitus, and the rest of the history and the whole chart is reviewed. HOME MEDICATIONS: Reviewed again Coumadin, dose and rest of the medications also reviewed. ALLERGIES: ntd FAMILY HISTORY: History of bone cancer. SOCIAL HISTORY: Previous history of smoking. REVIEW OF SYSTEMS: A 14-point review is negative except as mentioned earlier. PHYSICAL EXAMINATION: VITAL SIGNS: Pulse is 87, blood pressure 130/70, respirations 18. HEENT: Conjunctivae normal. NECK: No JVD. CARDIOVASCULAR: S1, S2. RESPIRATIONS: Breath sounds diminished at the bases, few scattered rhonchi. ABDOMEN: Soft, obese, mild diffuse tenderness. No guarding, no rigidity. No masses palpable. LEGS: No edema. NERVOUS SYSTEM: Nonfocal. SKIN: No ulcer, rash, or bleeding. JOINTS: No active deforming arthropathy. LABS: Reviewed. ASSESSMENT: 1. Acute diverticulitis and transverse colon microperforation. 2. Atrial fibrillation. 3. Chronic obstructive pulmonary disease. 4. Diabetes mellitus, type 2. 5. Hypertension. 6. Multiple medical issues. RECOMMENDATIONS: This 81-year-old gentleman presented with multiple complex medical issues. At this time, the surgery has initiated antibiotic and following empiric treatment, I would recommend to continue current treatment and hold off anticoagulants. Cardiology will be consulted to follow up the atrial fibrillation. Otherwise, once the acute phase is over, the anticoagulation may be re-initiated once it is evident that surgery is no more needed. In any case overall prognosis is extremely guarded because of multiple complex medical issues and see orders for details. MMODL / IJN: [id number] / MTDD
[2022-04-08] MEDS ORDERED: FUROSEMIDE 10 MG/ML 4 ML VIAL IV STA (08:38)
[2022-04-08] MEDS ORDERED: DAPTOmycin 500 MG VIAL IVPB SCH (09:00)
[2022-04-08] MEDS: DAPTOmycin 500 MG in SODIUM CHLORIDE 0.9% 50 ML IVPB SCH (09:02)
[2022-04-08] MEDS: PANTOPRAZOLE 40 MG/10 ML VIAL IV SCH (09:05)
[2022-04-08] MEDS: SOTALOL 80 MG TAB PO SCH ×2 (09:05→21:04)
[2022-04-08] MEDS: HEPARIN SODIUM,PORCINE/PF 5,000 UNIT/0.5 ML SYRINGE SQ SCH ×2 (09:05→21:04)
[2022-04-08] MEDS: carvediloL 12.5 MG TAB PO SCH ×2 (09:06→21:04)
[2022-04-08] MEDS: ATORVASTATIN 80 MG TAB PO SCH (09:06)
[2022-04-08] MEDS: SPIRONOLACTONE 25 MG TAB PO SCH (09:07)
[2022-04-08] MEDS: POTASSIUM CHLORIDE ER 20 MEQ TAB.ER PO SCH (09:07)
[2022-04-08] MEDS: lisinopriL 20 MG TAB PO SCH ×2 (09:07→21:04)
[2022-04-08] MEDS: FUROSEMIDE 20 MG TAB PO SCH (11:07)
[2022-04-08 11:37] LABS: Basophils # (A) 0.02 X 10*3/uL (0.00-0.10); Basophils % (A) 0.2 %; Eosinophils # (A) 0.11 X 10*3/uL (0.04-0.35); Eosinophils % (A) 0.8 %; HCT 35.9 % (39.6-50.0); HGB 10.7 g/dL (13.0-17.0); Immature Grans, Automated 0.5 %; Lymphocytes # (A) 0.39 X 10*3/uL (0.90-5.00); MCH 28.9 pg (27.0-32.0); MCHC 29.8 g/dL (32.0-37.0); Mean Platelet Volume 11.1 fL (9.5-12.2); Monocytes # (A) 1.05 X 10*3/uL (0.20-1.00); NRBC Per 100 WBC 0 /100 WBCS (0.0-0.0); Neutrophils # (A) 11.42 X 10*3/uL (1.80-7.70); Neutrophils % (A) 87.5 %; Platelet Count 273 X 10*3/uL (140-440); RDW 14.4 % (11.5-14.5); WBC 13.05 X 10*3/uL (4.50-10.00)
[2022-04-08 11:53] LABS: African American GFR (CKD) 43.2 (60.0-200.0); Anion Gap 12.2 mmol/L (10.00-18.00); BUN/Creat Ratio 14.53 Ratio (12.00-20.00); Blood Urea Nitrogen 24.7 mg/dL (9.0-27.0); Calcium 7.7 mg/dL (8.7-10.3); Carbon Dioxide 20.8 mmol/L (20.0-27.5); Non-African American GFR(CKD) 37.3 (60.0-200.0)
--- NOTE | 2022-04-08 12:12 | P.PN ---
Progress Note - Text Progress Note Date: 04/08/22 Patient states he feels better. On exam vital signs are stable. Abdomen soft. There is minimal right-sided tenderness. History of diverticulitis with microperforation. Patient will continue receive IV antibiotic. He will have his diet advanced today.
[2022-04-08 12:43] LABS: Glucose,Whole Blood 215 mg/dL (70-110)
--- NOTE | 2022-04-08 15:51 | P.PN ---
Subjective Progress Note Date: 04/08/22 Principal diagnosis: Possible perforated diverticulitis and bacteremia Patient is a 81-year-old male with a past medical history significant for atrial fibrillation COPD CVA TIA diabetes mellitus hypertension hyperlipidemia presenting to the ER for evaluation of acute abdominal pain that started 3-4 hour prior to now to the hospital patient describing pain to be mostly left upper quadrant area , patient did have CT abdominal pelvis reported as inflammatory process with possible small perforation in the right upper quadrant could be acute diverticulitis of the proximal transverse colon versus an inflammatory ischemic process involving his few small bowel loops. On today's evaluation 04/08/2022, the patient fever has resolved the patient abdominal pain slightly decreased in intensity denies any nausea no vomiting has been coming of some urinary frequency difficult urination and no significant burning Objective - Vital Signs Vital signs: Vital Signs Temp 98.2 F 04/08/22 08:00 Pulse 80 04/08/22 08:00 Resp 18 04/08/22 08:00 BP 111/73 04/08/22 08:00 Pulse Ox 99 04/08/22 08:00 FiO2 Intake & Output 04/07/22 04/08/22 04/08/22 18:59 06:59 18:59 Intake Total 118 118 Balance 118 118 Intake: Oral 118 118 Other: # Voids 1 2 - Exam GENERAL DESCRIPTION: An elderly male lying in bed in no distress RESPIRATORY SYSTEM: Unlabored breathing , decreased breath sounds at bases HEART: S1 S2 regular rate and rhythm , ABDOMEN: Soft , mild distention no significant tenderness EXTREMITIES: No edema feet - Labs CBC & Chem 7: 04/08/22 06:17 04/08/22 06:17 Labs: Abnormal Lab Results - Last 24 Hours (Table) 04/07/22 04/07/22 04/08/22 Range/Units 17:25 21:08 06:17 WBC 13.05 H (4.50-10.00) X 10*3/uL RBC 3.70 L (4.40-5.60) X 10*6/uL Hgb 10.7 L (13.0-17.0) g/dL Hct 35.9 L (39.6-50.0) % MCHC 29.8 L (32.0-37.0) g/dL Immature Gran # 0.06 H (0.00-0.04) X 10*3/uL Neutrophils # 11.42 H (1.80-7.70) X 10*3/uL Lymphocytes # 0.39 L (0.90-5.00) X 10*3/uL Monocytes # 1.05 H (0.20-1.00) X 10*3/uL Creatinine (0.6-1.5) mg/dL Est GFR (CKD-EPI)AfAm (60.0-200.0) Est GFR (CKD-EPI)NonAf (60.0-200.0) Glucose (70-110) mg/dL POC Glucose (mg/dL) 249 H 173 H (70-110) mg/dL Calcium (8.7-10.3) mg/dL 04/08/22 Range/Units 06:17 WBC (4.50-10.00) X 10*3/uL RBC (4.40-5.60) X 10*6/uL Hgb (13.0-17.0) g/dL Hct (39.6-50.0) % MCHC (32.0-37.0) g/dL Immature Gran # (0.00-0.04) X 10*3/uL Neutrophils # (1.80-7.70) X 10*3/uL Lymphocytes # (0.90-5.00) X 10*3/uL Monocytes # (0.20-1.00) X 10*3/uL Creatinine 1.7 H (0.6-1.5) mg/dL Est GFR (CKD-EPI)AfAm 43.2 L (60.0-200.0) Est GFR (CKD-EPI)NonAf 37.3 L (60.0-200.0) Glucose 136 H (70-110) mg/dL POC Glucose (mg/dL) (70-110) mg/dL Calcium 7.7 L (8.7-10.3) mg/dL Microbiology - Last 24 Hours (Table) 04/06/22 15:15 Blood Culture Gram Stain - Preliminary Blood 04/06/22 15:15 Blood Culture Gram Stain - Preliminary Blood Blood Culture - Preliminary Staphylococcus epidermidis 04/06/22 15:15 Blood Culture - Final Blood 04/06/22 18:30 Urine Culture - Preliminary Urine,Clean Catch Group D Enterococcus 04/06/22 15:15 Blood Culture - Final Blood Assessment and Plan (1) Bacteremia Current Visit: Yes Status: Acute Code(s): R78.81 - BACTEREMIA SNOMED Code(s): 5304308 (2) Acute diverticulitis Current Visit: Yes Status: Acute Code(s): K57.92 - DVTRCLI OF INTEST, PART UNSP, W/O PERF OR ABSCESS W/O BLEED SNOMED Code(s): 902185077 Plan: 1patient is in the hospital with abdominal pain and acute onset now with concern for possible microperforation of the transverse colon versus ischemic changes to the small bowel however the patient did have a normal lactic acid white count is not significantly elevated and the patient is afebrile and the patient abdominal pain subsequently resolved question of possible micro- perforation/ diverticulitis and will need to cover for enteric gram-negative both anaerobes and aerobes 2patient seemed to have some clinical improvement and will continue with the Zosyn 3.375 g every 8 hours 3patient did have a positive blood culture for staph epi likely skin contamination urine is currently growing enterococcus we will continue daptomycin while waiting for sensitivities on enterococcus to be finalize Family the bedside. Multiple questions and concerns were answered in Layman terms Time with Patient: Greater than 30
[2022-04-08 17:33] LABS: INR 2.04 (0.90-1.11); Prothrombin Time 22.4 sec (9.9-11.9)
[2022-04-08 17:42] LABS: Glucose,Whole Blood 169 mg/dL (70-110)
[2022-04-08 20:08] LABS: Glucose,Whole Blood 200 mg/dL (70-110)
[2022-04-08] MEDS: PRIMIDONE 250 MG TAB PO SCH (21:04)
--- NOTE | 2022-04-08 22:03 | CONS ---
CONSULTATION CHIEF COMPLAINT: Abdominal pain. HISTORY OF PRESENT ILLNESS: Spencer is an 81-year-old gentleman with history of coronary artery disease, ischemic cardiomyopathy, and persistent atrial fibrillation, who was recently admitted to hospital with ventricular tachycardia, underwent cardiac catheterization and did not require any revascularization. The patient opted not to undergo an AICD. He is currently on mexiletine and sotalol, could not tolerate amiodarone in the past. He comes in complaining of abdominal pain, thought to be related to diverticulitis. We have been consulted because of his cardiac history. EKG shows atrial fibrillation with poor R-wave progression. He was on Coumadin prior to coming in, and Coumadin is currently on hold. Abdominal pain is currently being worked up. In fact, the abdominal discomfort had resolved. PAST MEDICAL HISTORY: Significant for coronary artery disease and persistent atrial fibrillation, and ventricular tachycardia. MEDICATIONS: As charted. ALLERGIES: There are no known drug allergies. FAMILY HISTORY: Negative for premature coronary artery disease. SOCIAL HISTORY: Negative for current smoking, EtOH abuse, or drug abuse. REVIEW OF SYSTEMS: 14 out of 14 review of systems has been performed. Pertinents are as documented. PHYSICAL EXAMINATION: GENERAL: Comfortable at rest. VITAL SIGNS: Stable. O2 saturation is 97% on room air. NECK: There is no jugular venous distention. Carotid upstroke is normal. There is no bruit. CHEST: Reveals good air entry bilaterally. HEART: Reveals first and second heart sounds. An ejection systolic murmur in the aortic area. ABDOMEN: Soft. EXTREMITIES: Did not reveal any edema. Peripheral pulses are felt. LABORATORY DATA: Show a hemoglobin of 11.4, platelet count is 266. Potassium is 4.1 and creatinine is 1.5. ASSESSMENT: 1. Abdominal pain. Workup in progress. 2. Ventricular tachycardia, on medical therapy. 3. Coronary artery disease, on medical therapy. 4. Persistent atrial fibrillation. PLAN: Resume Coumadin if we are not planning on doing any further workup with his abdominal pain, and from cardiac standpoint, he is stable for discharge. MMODL / IJN: [id number] /
[2022-04-09] MEDS: PYRIDOSTIGMINE 60 MG TAB PO SCH ×3 (00:51→10:32)
[2022-04-09] MEDS: SODIUM CHLORIDE 0.9% 1,000 ML IV SCH ×3 (00:51→16:32)
[2022-04-09] MEDS: PIPERACILLIN-TAZOBACTAM 3.375 GM in SODIUM CHLORIDE 0.9% 100 ML IVPB SCH ×3 (00:51→10:46)
[2022-04-09] MEDS: MEXILETINE 150 MG CAP PO SCH ×2 (00:51→10:30)
--- NOTE | 2022-04-09 03:31 | PN ---
PROGRESS NOTE DATE OF SERVICE: 04/08/2022 SUBJECTIVE: This is an 81-year-old gentleman who was admitted after acute diverticulitis and transverse colon IV antibiotics. No chest pain. No palpitations. No fever. White count is still 13. Infectious Disease and Surgery are following the patient closely. PHYSICAL EXAMINATION: VITAL SIGNS: Pulse is 80, blood pressure 130/170, respirations 18. HEENT: Conjunctivae are normal. NECK: No jugular venous distention. CARDIOVASCULAR: S1 and S2. ABDOMEN: Soft, mild diffuse tenderness. No guarding. No rigidity. No mass palpable. No ascites. bowel sounds diminished. LABS: Reviewed. ASSESSMENT: 1. Abdominal pain with acute diverticulitis and transverse colon microperforation. 2. Atrial fibrillation. 3. Chronic obstructive pulmonary disease. 4. Diabetes mellitus, type 2. 5. Hypertension multiple medical issues. RECOMMENDATIONS: I recommend to continue current management. I recommend to continue the broad- spectrum IV antibiotics. Closely follow with Infectious Disease and Surgery. Await cultures. Prognosis, guarded because of multiple complex medical issues and further recommendations to follow. MMODL / IJN: [id number] / MTDD
[2022-04-09 06:55] LABS: Glucose,Whole Blood 155 mg/dL (70-110)
--- NOTE | 2022-04-09 09:55 | PN ---
PROGRESS NOTE SUBJECTIVE: This is an 81-year-old gentleman with history of coronary artery disease, ischemic cardiomyopathy, atrial fibrillation, and ventricular tachycardia, who is admitted to hospital with abdominal pain, and we have been consulted because of his cardiac history. This morning, he is resting comfortably and free of cardiac symptoms. PHYSICAL EXAMINATION: VITAL SIGNS: The patient is afebrile. Heart rate is 90 beats per minute. Blood pressure is . Respiratory rate is 18. O2 sat is 97% on 2 L. NECK: There is no jugular venous distention. Carotid upstroke is normal. There is no bruit. CHEST: Reveals good air entry bilaterally. HEART: Reveals first and second heart sounds. No gallop. No murmur. ABDOMEN: Soft, nontender. EXTREMITIES: Do not reveal any edema. Peripheral pulses are felt. LABORATORY DATA: I do not have any labs from today. His creatinine is elevated at 1.7 from yesterday's labs. Hemoglobin is 10.7. ASSESSMENT AND PLAN: 1. Abdominal pain. Workup in progress. 2. Persistent atrial fibrillation. 3. Ventricular tachycardia. PLAN: Coumadin is on hold until the abdominal pain issues have resolved. MMODL / IJN: [id number] /
[2022-04-09] MEDS: HEPARIN SODIUM,PORCINE/PF 5,000 UNIT/0.5 ML SYRINGE SQ SCH (10:26)
[2022-04-09] MEDS: DAPTOmycin 500 MG in SODIUM CHLORIDE 0.9% 50 ML IVPB SCH (10:26)
[2022-04-09] MEDS: PANTOPRAZOLE 40 MG/10 ML VIAL IV SCH (10:27)
[2022-04-09] MEDS: SOTALOL 80 MG TAB PO SCH (10:30)
[2022-04-09] MEDS: carvediloL 12.5 MG TAB PO SCH (10:31)
[2022-04-09] MEDS: SPIRONOLACTONE 25 MG TAB PO SCH ×2 (10:32→11:24)
[2022-04-09] MEDS: ATORVASTATIN 80 MG TAB PO SCH (10:32)
[2022-04-09] MEDS: FUROSEMIDE 20 MG TAB PO SCH (10:32)
[2022-04-09] MEDS: lisinopriL 20 MG TAB PO SCH ×2 (10:32→11:24)
[2022-04-09] MEDS: POTASSIUM CHLORIDE ER 20 MEQ TAB.ER PO SCH (10:33)
[2022-04-09] MEDS ORDERED: IOPAMIDOL CONTRAST (ORAL USE) VIAL PO PRN (11:13)
[2022-04-09] MEDS ORDERED: SODIUM CHLORIDE 0.9% 1,000 ML IV ONE (11:15)
[2022-04-09] MEDS ORDERED: PIPERACILLIN-TAZOBACTAM 3.375 GM in SODIUM CHLORIDE 0.9% 100 ML IVPB SCH (12:00)
[2022-04-09 12:04] LABS: Glucose,Whole Blood 185 mg/dL (70-110)
[2022-04-09 12:10] LABS: ALT 30 U/L (4-49); AST 42 U/L (17-59); African American GFR (CKD) 33 (>60 ml/min/1.73 sqM); Albumin 3.1 g/dL (3.5-5.0); Albumin/Globulin Ratio 1.1; Alkaline Phosphatase 155 U/L (38-126); Anion Gap 8 mmol/L; Blood Urea Nitrogen 30 mg/dL (9-20); Calcium 7.5 mg/dL (8.4-10.2); Carbon Dioxide 15 mmol/L (22-30); Chloride 116 mmol/L (98-107); Globulin 2.9 g/dL; Glucose 177 mg/dL (74-99); Non-African American GFR(CKD) 28 (>60 ml/min/1.73 sqM); Potassium 3.9 mmol/L (3.5-5.1); Sodium 139 mmol/L (137-145); Total Bilirubin 0.8 mg/dL (0.2-1.3)
[2022-04-09] MEDS ORDERED: DEXTROSE 50% SYRINGE 50 ML IVP PRN ×2 (12:15)
[2022-04-09 12:19] LABS: Basophils % (A) 0 %; Eosinophils # (A) 0.1 k/uL (0-0.7); Eosinophils % (A) 1 %; HCT 36.5 % (39.0-53.0); Hypochromasia Marked; Lymphocytes # (A) 0.4 k/uL (1.0-4.8); Lymphocytes % (A) 3 %; MCH 29.6 pg (25.0-35.0); MCHC 30.6 g/dL (31.0-37.0); MCV 96.6 fL (80.0-100.0); Mean Platelet Volume 9.7; Monocytes # (A) 0.6 k/uL (0-1.0); Monocytes % (A) 5 %; Neutrophils # (A) 10.6 k/uL (1.3-7.7); Neutrophils % (A) 89 %; Platelet Count 257 k/uL (150-450); RBC 3.78 m/uL (4.30-5.90); RDW 14.3 % (11.5-15.5); WBC 11.9 k/uL (3.8-10.6)
[2022-04-09 12:22] LABS: HGB 11.2 gm/dL (13.0-17.5)
[2022-04-09] MEDS ORDERED: INSULIN ASPART (NovoLOG) 100 UNIT/ML VIAL SQ SCH (12:30)
--- NOTE | 2022-04-09 12:30 | P.PN ---
Progress Note - Text Progress Note Date: 04/09/22 Patient has increased complaints of right-sided abdominal pain today. On exam vital signs are stable. Abdomen is soft. There is significant right- sided abdominal pain. There is no rebound or guarding. Patient will have a stat CBC MCP performed. A STAT CAT SCAN OF THE ABDOMEN PELVIS PERFORMED TO RULE OUT FOR POSSIBLE PROGRESSION OF HIS DIVERTICULITIS WITH MICROPERFORATION.
[2022-04-09] MEDS ORDERED: propofoL 100 ML IV ONE (13:33)
[2022-04-09] MEDS ORDERED: fentaNYL (PF) 50 MCG/ML 2 ML AMP ONE (13:33)
[2022-04-09 14:03] VITALS: RESP 18
--- NOTE | 2022-04-09 14:13 | P.EN ---
Called for SRINI QUIJANO at 1300. She had a witnessed cardiac arrest, chest compressions started immediately. Initial rhythm was PEA. Patient was intubated at 1317. Throughout approximately 30 minute code, patient received 4 rounds of epinephrine, 3 pushes of bicarb, 1 mg of atropine. Heart rhythm was predominantly pulseless electrical activity, however, patient did have return of spontaneous circulation after first 3 cycles of CPR, then was started on epinephrine gtt; his rhythm changed to idioventricular rhythm, then briefly to A. fib with RVR, then back again to idioventricular rhythm. Patient's family was at bedside and made patient DO NOT RESUSCITATE/DO NOT INTUBATE, and unfortunately patient lost his pulse again. Patient subsequently at 1336.
[2022-04-09 16:35] VITALS: BP 105/63; PULSE 80; TEMP 97.5
--- NOTE | 2022-04-09 16:44 | P.PN ---
Subjective Progress Note Date: 04/09/22 Principal diagnosis: Possible perforated diverticulitis and bacteremia Patient is a 81-year-old male with a past medical history significant for atrial fibrillation COPD CVA TIA diabetes mellitus hypertension hyperlipidemia presenting to the ER for evaluation of acute abdominal pain that started 3-4 hour prior to now to the hospital patient describing pain to be mostly left upper quadrant area , patient did have CT abdominal pelvis reported as inflammatory process with possible small perforation in the right upper quadrant could be acute diverticulitis of the proximal transverse colon versus an inflammatory ischemic process involving his few small bowel loops. On today's evaluation 04/09/2022, the patient remains to be afebrile, patient had been complaining of significant diarrhea since morning, has been complaining of pain to the right upper quadrant area but no nausea no vomiting and no chest pain shortness of breath or cough Objective - Vital Signs Vital signs: Vital Signs Temp 97.7 F 04/09/22 00:56 Pulse 90 04/09/22 00:56 Resp 19 04/09/22 00:56 BP 125/54 04/09/22 00:56 Pulse Ox 97 04/09/22 00:56 FiO2 Intake & Output 04/08/22 04/09/22 04/09/22 18:59 06:59 18:59 Intake Total 354 Balance 354 Intake: Oral 354 Other: Voiding Method Toilet # Voids 1 1 - Exam GENERAL DESCRIPTION: An elderly male lying in bed in no distress RESPIRATORY SYSTEM: Unlabored breathing , decreased breath sounds at bases HEART: S1 S2 regular rate and rhythm , ABDOMEN: Soft , mild distention however no significant tenderness EXTREMITIES: No edema feet - Labs CBC & Chem 7: 04/09/22 11:36 04/09/22 11:57 Labs: Abnormal Lab Results - Last 24 Hours (Table) 04/08/22 04/08/22 04/08/22 Range/Units 06:17 06:17 10:19 WBC 13.05 H (4.50-10.00) X 10*3/uL RBC 3.70 L (4.40-5.60) X 10*6/uL Hgb 10.7 L (13.0-17.0) g/dL Hct 35.9 L (39.6-50.0) % MCHC 29.8 L (32.0-37.0) g/dL Immature Gran # 0.06 H (0.00-0.04) X 10*3/uL Neutrophils # 11.42 H (1.80-7.70) X 10*3/uL Lymphocytes # 0.39 L (0.90-5.00) X 10*3/uL Monocytes # 1.05 H (0.20-1.00) X 10*3/uL PT 22.4 H (9.9-11.9) sec INR 2.04 H (0.90-1.11) Creatinine 1.7 H (0.6-1.5) mg/dL Est GFR (CKD-EPI)AfAm 43.2 L (60.0-200.0) Est GFR (CKD-EPI)NonAf 37.3 L (60.0-200.0) Glucose 136 H (70-110) mg/dL POC Glucose (mg/dL) (70-110) mg/dL Calcium 7.7 L (8.7-10.3) mg/dL 04/08/22 04/08/22 04/08/22 Range/Units 12:41 17:41 20:06 WBC (4.50-10.00) X 10*3/uL RBC (4.40-5.60) X 10*6/uL Hgb (13.0-17.0) g/dL Hct (39.6-50.0) % MCHC (32.0-37.0) g/dL Immature Gran # (0.00-0.04) X 10*3/uL Neutrophils # (1.80-7.70) X 10*3/uL Lymphocytes # (0.90-5.00) X 10*3/uL Monocytes # (0.20-1.00) X 10*3/uL PT (9.9-11.9) sec INR (0.90-1.11) Creatinine (0.6-1.5) mg/dL Est GFR (CKD-EPI)AfAm (60.0-200.0) Est GFR (CKD-EPI)NonAf (60.0-200.0) Glucose (70-110) mg/dL POC Glucose (mg/dL) 215 H 169 H 200 H (70-110) mg/dL Calcium (8.7-10.3) mg/dL 04/09/22 Range/Units 06:54 WBC (4.50-10.00) X 10*3/uL RBC (4.40-5.60) X 10*6/uL Hgb (13.0-17.0) g/dL Hct (39.6-50.0) % MCHC (32.0-37.0) g/dL Immature Gran # (0.00-0.04) X 10*3/uL Neutrophils # (1.80-7.70) X 10*3/uL Lymphocytes # (0.90-5.00) X 10*3/uL Monocytes # (0.20-1.00) X 10*3/uL PT (9.9-11.9) sec INR (0.90-1.11) Creatinine (0.6-1.5) mg/dL Est GFR (CKD-EPI)AfAm (60.0-200.0) Est GFR (CKD-EPI)NonAf (60.0-200.0) Glucose (70-110) mg/dL POC Glucose (mg/dL) 155 H (70-110) mg/dL Calcium (8.7-10.3) mg/dL Microbiology - Last 24 Hours (Table) 04/06/22 15:15 Blood Culture Gram Stain - Preliminary Blood Blood Culture - Preliminary Coagulase Negative Staph 04/06/22 15:15 Blood Culture Gram Stain - Preliminary Blood Blood Culture - Preliminary Staphylococcus epidermidis 04/08/22 06:17 Blood Culture - Preliminary Blood No Growth after 24 hours 04/06/22 18:30 Urine Culture - Final Urine,Clean Catch Enterococcus faecalis Assessment and Plan (1) Bacteremia Status: Acute Code(s): R78.81 - BACTEREMIA SNOMED Code(s): 6282612 (2) Acute diverticulitis Status: Acute Code(s): K57.92 - DVTRCLI OF INTEST, PART UNSP, W/O PERF OR ABSCESS W/O BLEED SNOMED Code(s): 678623473 Plan: 1patient is in the hospital with abdominal pain and acute onset now with concern for possible microperforation of the transverse colon versus ischemic changes to the small bowel however the patient did have a normal lactic acid white count is not significantly elevated and the patient is afebrile and the patient abdominal pain subsequently resolved question of possible micro- perforation/ diverticulitis and will need to cover for enteric gram-negative both anaerobes and aerobes 2patient did have a positive blood culture for staph epi likely skin contamination 3- urine is currently growing enterococcus which is a sensitive pathogen 4patient seemed to have worsening abdominal distention and also complaining of diarrhea stool for C. diff has been requested as well as CT of abdominal pelvis case was discussed with the surgeon on the floor he will continue with the Zosyn and daptomycin at this point awaiting for the condition to stabilize, prognosis remains to be guarded Time with Patient: Less than 30
--- NOTE | 2022-04-10 01:49 | PN ---
PROGRESS NOTE DATE OF SERVICE: 04/09/2022 SUBJECTIVE: This is an 81-year-old gentleman admitted with diverticulitis and microperforation, is being closely monitored. Surgery is following the patient. No chest pain. No palpitations. No fever. Repeat CAT scan recommended by Surgery. REVIEW OF SYSTEMS: 14-point review is negative as mentioned earlier. CURRENT MEDICATIONS: Reviewed. PHYSICAL EXAMINATION: VITAL SIGNS: Pulse 90, blood pressure 125/50, respirations 19. HEENT: Conjunctivae are normal. NECK: No jugular venous distention. CARDIOVASCULAR: S1 and S2. ABDOMEN: Soft, mild diffuse distention. LABS: Noted. ASSESSMENT: 1. Abdominal pain with acute diverticulitis with transverse colon microperforation. 2. Atrial fibrillation. 3. Chronic obstructive pulmonary disease. 4. Diabetes mellitus type 2. 5. Hypertension, multiple medical issues. RECOMMENDATIONS: I recommend to continue current management and treatment. Otherwise, we will avoid anticoagulation at this time. Continue the antibiotics. Repeat CAT scan, follow closely with Surgery. Prognosis guarded because of multiple complex medical issues and further recommendations to follow. Avoid nephrotoxic medications. We will continue to monitor. We will do a chest x-ray as well. MMODL / IJN: [id number] /
[2022-04-11] MEDS ORDERED: DAPTOmycin 500 MG in SODIUM CHLORIDE 0.9% 50 ML IVPB SCH (08:00)
--- NOTE | 2022-04-12 14:53 | CDI ---
"The patient has the following SIRS indicators: Temperature of 102.9 - Oral and a pulse rate of 114 on 04/06. Based on this information and the findings below, is there an additional diagnosis that is clinically appropriate for this patient? History/Risk Factors: 81 year old male presents with complaints od abdominal pain. Workup found evidence of diverticulitis and possible transverse colon microperforation. Patient was admitted on 04/06 for antibiotics and medical management. Clinical Indicators: 04/[address] Knight: Presentation to hospital was afebrile. He did have a normal white count initially; the white count is now up to 11.3 this morning with a left shift. Creatinine is 1.5, lactic acid was normal. Patient did have a CT of abdominal/pelvis which was reported as inflammatory process with possible small perforation in the right upper quadrant. Could be acute diverticulitis of the proximal transverse colon versus and inflammatory ischemic process involving his few small bowel loops. Patient was started on Zosyn. 04/[address] Knight: Possible perforation and bacteremia On 04/08 the patients fever has resolved. The patients abdominal pain is slightly decreased in intensity and denies any nausea or vomiting. Patient complains of some urinary frequency, difficult urination, and no significant burning. The patient seems to have had some clinical improvement and will continue the Zosyn 3.375 g every 8 hours. The patient did have a positive blood culture for staph epi likely a skin contaminant. Urine is currently growing enterococcus. Continue daptomycin while waiting for sensitivities on enterococcus to finalize. 04/[address] Oglesby: Abdominal pain with acute diverticulitis and transverse colon microperforation: I recommend to continue current management. I recommend to continue broad-spectrum antibiotics. Prognosis guarded because of multiple complex medical issues. 04/[address] Knight: Patient remains afebrile and complaining of significant diarrhea since morning as well as right upper quadrant pain 04/[address] Kelly: Patient has increased complaints of right sided abdominal pain today. Patient will have a stat CBC MCP performed as well as a stat CT-Abdomen/pelvis top rule out further progression of his diverticulitis with microperforation. WBC: 04/06 7.6, 04/07 11.67, 04/08 13.05, 04/09 11.9 Lactic acid: 04/06 2.30.9 Blood cultures 04/06: Staphylococcus epidermidis in both bottles Urine culture 04/06: Enterococcus Faecalis >100,000 CFU/ML Vitals signs: 04/06 192/127 | HR 114 | rr 18 | Temp 98.0 F102.9 F100 F Treatment: Ofirmev 1000mg IVPB (04/06), Zosyn 3.375g Q8hr (04/06-04/09), Daptomycin 500mg Q24hr (04/08-04/09), 0.9NS 1L Bolus (04/09). Based on the above information is there an additional diagnosis that is clinically appropriate for this patient? [ ] Sepsis, present on admission [ ] Sepsis, developed during stay, not present on admission [ ] Sepsis Not present this admission [ ] Other, please specify [xx ] Unable to determine SIRS Criteria: 2 or more of the following may indicate SIRS Temperature < 96.8F (36C) or > 101.0F (38.3C) Heart Rate > 90 bpm Respiratory Rate > 20 breaths/min or PaCO2 < 32 mmHg White Blood Cell Count > 12,000 or < 4,000 cells/mm3 or > 10% bands MTDD"
--- NOTE | 2022-04-20 13:36 | P.DS ---
Providers Date of admission: 04/06/22 18:32 Expected date of discharge: 05/10/22 Attending physician: Joe Kelly Consults: 04/06/22 18:23 Consult Physician Urgent Consulting Provider: Cydney Ovalle Consult Reason/Comments: Medical management Do you want consulting provider notified?: Already Contacted 04/07/22 12:56 Consult Physician Routine Consulting Provider: Maxi Knight Consult Reason/Comments: Medical management Do you want consulting provider notified?: Yes 04/07/22 14:29 Consult Physician Routine Consulting Provider: Tae Jay Consult Reason/Comments: afib Do you want consulting provider notified?: Yes 04/09/22 13:00 Consult Physician Stat Consulting Provider: Andrzej Esparza Consult Reason/Comments: Possible ICU Do you want consulting provider notified?: Yes Consult Physician Urgent Consulting Provider: Malu Dalal Consult Reason/Comments: worsening kidney function Do you want consulting provider notified?: Yes Primary care physician: [facility] Course: This is an 81-year-old male with multiple medical problems who was admitted to the hospital with diverticulitis with microperforation. Patient initially did well with IV antibiotics. The patient's pain resolved on 04/08/2022. the patient stated he did not wish to have surgery. He was started on diet. On the morning of 04/09/2022. The patient had some increased pain in the right abdominal area. A stat CAT scan was ordered. Later that morning the patient had a cardiac arrest. Please see the medical note regarding this. the patient in the morning of 04/09/02 Pertinent Studies: CT scan of the abdomen Patient Condition at Discharge: Serious Plan - Discharge Summary Discharge Rx Participant: No New Discharge Prescriptions: No Action Atorvastatin [Lipitor] 80 mg PO DAILY Warfarin Sodium [Coumadin] 5 mg PO SUTUTHSA@2100 Pyridostigmine Balfour [Mestinon] 60 mg PO 5XD metFORMIN HCL ER [Glucophage XR] 500 mg PO BID Primidone [Mysoline] 250 mg PO HS Potassium Chloride ER [K-Dur 20] 20 meq PO DAILY #30 tab.er.prt Furosemide [Lasix] 20 mg PO DAILY #30 tab lisinopriL [Zestril] 20 mg PO BID #0 tab Mv-Mn/Om3/Dha/Epa/Fish/Lut/Shannen [Ocuvite Adult 50 Plus Softgel] 1 cap PO DAILY Sotalol [Betapace] 80 mg PO BID #180 tab Aspirin 81 mg PO DAILY tab Warfarin Sodium 7.5 mg PO MOWEFR@2099 Mexiletine HCl 150 mg PO Q8H carvediloL 25 mg PO BID Spironolactone [Aldactone] 25 mg PO DAILY #30 tab Discharge Medication List Atorvastatin [Lipitor] 80 mg PO DAILY 12/21/15 [History] Warfarin Sodium [Coumadin] 5 mg PO SUTUTHSA@209902/01/16 [History] Primidone [Mysoline] 250 mg PO HS 08/16/18 [History] Pyridostigmine Balfour [Mestinon] 60 mg PO 5XD 08/16/18 [History] metFORMIN HCL ER [Glucophage XR] 500 mg PO BID 08/16/18 [History] Furosemide [Lasix] 20 mg PO DAILY #30 tab 04/26/19 [Rx] Potassium Chloride ER [K-Dur 20] 20 meq PO DAILY #30 tab.er.prt 04/26/19 [Rx] lisinopriL [Zestril] 20 mg PO BID #0 tab 04/26/19 [Rx] Mexiletine HCl 150 mg PO Q8H 12/14/21 [History] Warfarin Sodium 7.5 mg PO MOWEFR@209912/14/21 [History] carvediloL 25 mg PO BID 12/14/21 [History] Mv-Mn/Om3/Dha/Epa/Fish/Lut/Shannen [Ocuvite Adult 50 Plus Softgel] 1 cap PO DAILY 03/28/22 [History] Aspirin 81 mg PO DAILY tab 03/30/22 [Rx] Sotalol [Betapace] 80 mg PO BID #180 tab 03/30/22 [Rx] Spironolactone [Aldactone] 25 mg PO DAILY #30 tab 03/30/22 [Rx] Follow up Appointment(s)/Referral(s): Monica Grewal III, MD [Primary Care Provider] - 1-2 days Discharge Disposition: - Preliminary Cause of Preliminary Cause of : cardiac arrest
== END 2022-04-09 16:33 | disposition expired | DRG 378 ==
LOC: EC 14:50 → 4SSUR 18:32 → 6NMEDSUR 22:53
PROVIDERS: ADMIT Surgery; ATTEND Surgery
PROC: 3E043XZ Introduction of Vasopressor into Central Vein, Percutaneous Approach (ICD-10-PCS; principal; 2022-04-09)
PROC: 5A1935Z Respiratory Ventilation, Less than 24 Consecutive Hours (ICD-10-PCS; principal; 2022-04-09)
PROC: 0BH17EZ Insertion of Endotracheal Airway into Trachea, Via Natural or Artificial Opening (ICD-10-PCS; principal; 2022-04-09)
PROC: 5A12012 Performance of Cardiac Output, Single, Manual (ICD-10-PCS; principal; 2022-04-09)
DX: K57.81 Diverticulitis of intestine, part unspecified, with perforation and abscess with bleeding (principal); E87.20 Acidosis, unspecified; F19.20 Other psychoactive substance dependence, uncomplicated; I42.9 Cardiomyopathy, unspecified; I47.20 Ventricular tachycardia, unspecified; I48.19 Other persistent atrial fibrillation; N20.0 Calculus of kidney; N40.0 Benign prostatic hyperplasia without lower urinary tract symptoms; R56.9 Unspecified convulsions; E11.9 Type 2 diabetes mellitus without complications; E78.5 Hyperlipidemia, unspecified; E86.0 Dehydration; F10.20 Alcohol dependence, uncomplicated; Z71.6 Tobacco abuse counseling; F17.210 Nicotine dependence, cigarettes, uncomplicated; I46.9 Cardiac arrest, cause unspecified; G70.00 Myasthenia gravis without (acute) exacerbation; D50.9 Iron deficiency anemia, unspecified; Z66 Do not resuscitate; J44.9 Chronic obstructive pulmonary disease, unspecified; H91.90 Unspecified hearing loss, unspecified ear; I10 Essential (primary) hypertension; I25.10 Atherosclerotic heart disease of native coronary artery without angina pectoris; I25.2 Old myocardial infarction; Z86.73 Personal history of transient ischemic attack (TIA), and cerebral infarction without residual deficits; Z59.6 Low income; Z59.00 Homelessness unspecified; Z79.01 Long term (current) use of anticoagulants; Z79.82 Long term (current) use of aspirin; Z79.84 Long term (current) use of oral hypoglycemic drugs; Z79.899 Other long term (current) drug therapy; Z87.442 Personal history of urinary calculi; Z90.49 Acquired absence of other specified parts of digestive tract
CPT/HCPCS: 36415; 74018; 74178; 80048; 80053; 81001; 82150; 82550; 83605; 83690; 84484; 85025; 85610; 87040; 87077; 87086; 87186; 87324; 87635; 92950; 93005; 96365; 96366; 96375; 99285